=== PATIENT | female | born 1930 | race Caucasian/White ===

== ENCOUNTER → 2017-11-14 | Outpatient (CLI) | END | disposition home or self-care (01) ==

== ENCOUNTER 2017-11-17 14:50 | Inpatient (IN) | END 2017-11-24 19:30 | DRG 871 ==

== ENCOUNTER 2019-01-21 05:29 | Inpatient (IN) | payer MEDICARE, OTHER ==
[~2019-01-21] VITALS: Ht 152.4 cm; Wt 69.6 kg
[~2019-01-21 05:29] MED LIST: ALBU18HF INHALATION; ASPI-903 PO; BENZ-6 PO; CALC500T91 PO; CLON-379 PO; DONE10TA7 PO; ESOM40CA51 PO; FLUC200T52 PO; LEVO75TA5 PO; METO-335 PO; NIFE60TA18 PO; OSEL30CA PO; ROPI0.5T2 PO; RSV10T PO; SOLI5TAB2 PO
[2019-01-21] MEDS ORDERED: FENTAnyl 50 MCG/ML VIAL IV ONE (06:00)
[2019-01-21] MEDS ORDERED: SOD CHLORIDE 0.9% 1,000 ML IV SCH (06:13)
--- NOTE | 2019-01-21 06:13 | ERD ---
ER Documentation Chief Complaint Chief Complaint [facility] home for mechanical fall, right hip pain, shortening HPI This is an 88-year-old female with a past medical history of hypertension, h yperlipidemia, coronary artery disease status post CABG, atrial fibrillation, COPD, hypothyroidism, dementia who is presenting with right hip pain after a mechanical ground-level fall. The patient's right leg is externally rotated and shortened. Her leg is not cold or pale or blue. Her pulses are intact. She is able to move her ankle and toes without difficulty. She does not endorse any other trauma or injury. She does not endorse any other pain. The patient denies feeling sick recently. The patient denies fever or chills. The patient has had no headache or vision changes. The patient does not endorse neck or back pain. The patient denies lightheadedness or dizziness. The patient has had no chest pain or trouble breathing. The patient denies nausea or vomiting. The patient denies abdominal pain. The patient denies changes to bowel movements or urination. The patient has had no focal deficits. The patient has had no weakness or numbness or tingling to the face or extremities. ROS All systems reviewed and are negative except as per history of present illness. Medications Home Meds Active Scripts Clonidine Hcl* (Clonidine Hcl*) 0.1 Mg Tab, 0.1 MG PO DAILY, #30 TAB Prov:BRIDGET CHAN NP 11/24/17 Metoprolol Succinate* (Toprol XL*) 25 Mg Tab.sr.24h, 12.5 MG PO DAILY, #30 TAB Prov:BRIDGET CHAN NP 11/23/17 Fluconazole* (Fluconazole*) 200 Mg Tablet, 200 MG PO DAILY, #5 TAB Prov:BRIDGET CHAN NP 11/23/17 Oseltamivir Phosphate* (Tamiflu*) 30 Mg Capsule, 30 MG PO BID, #4 CAP Prov:BRIDGET CHAN NP 11/23/17 Nifedipine* (Nifedipine ER*) 60 Mg Tablet.sa, 60 MG PO DAILY, #30 TAB.SA Prov:BRIDGET CHAN NP 11/23/17 Donepezil* (Donepezil*) 10 Mg Tablet, 10 MG PO DAILY, #30 TAB Prov:BRIDGET CHAN NP 11/23/17 Reported Medications Esomeprazole Magnesium (Esomeprazole Magnesium) 40 Mg Capsule.dr 40 MG PO BEFORE BREAKFAST, #30 CAP 11/17/17 Rosuvastatin Calcium* (Crestor*) 10 Mg Tablet, 10 MG PO QHS, #30 TAB 11/17/17 Solifenacin* (Vesicare*) 5 Mg Tablet, 5 MG PO DAILY, TAB 11/17/17 Ropinirole Hcl* (Ropinirole Hcl*) 0.5 Mg Tablet, 0.5 MG PO HS, TAB 11/17/17 Albuterol Sulfate* (Ventolin HFA*) 18 Gm Hfa.aer.ad, 2 PUFF INHALATION Q4H PRN for WHEEZING AND SOB, #1 INHALER 11/17/17 Benzonatate* (Tessalon Perle*) 100 Mg Capsule, 100 MG PO Q8H PRN for COUGH, CAP 11/17/17 Donepezil* (Donepezil*) 10 Mg Tablet, 10 MG PO DAILY, #30 TAB 11/17/17 Calcium Carbonate ([id number]) 500 Mg Tablet, 500 MG PO BID, TAB 11/17/17 Aspirin* (Aspirin* Chew) 81 Mg Tab.chew, 81 MG PO DAILY, TAB.CHEW 11/17/17 Levothyroxine Sodium* (Levothyroxine Sodium*) 75 Mcg Tablet, 75 MG PO AC BREAKFAST, #30 11/17/17 Allergies Allergies: Coded Allergies: No Known Allergy (Unverified , 11/17/17) PMhx/Soc History of Surgery: Yes (BYPASS 2004, 2014, [id number], CATARACT ,APPY,HERNIA REPAIR 1981) Anesthesia Reaction: No Hx Neurological Disorder: No Hx Respiratory Disorders: Yes (COPD) Hx Cardiac Disorders: Yes (Hypertension, hyperlipidemia, coronary artery disease, atrial fibrillation) Hx Psychiatric Problems: No Hx Miscellaneous Medical Probl: Yes (Hypothyroidism) Hx Alcohol Use: No Hx Substance Use: No Hx Tobacco Use: No FmHx Family History: No diabetes Physical Exam Vitals Vital Signs Date Temp Pulse Resp B/P (MAP) Pulse Ox O2 O2 Flow FiO2 Time Delivery Rate 01/21/19 97.3 21 19 146/65 100 05:33 (92) Physical Exam Const: No acute distress Head: Atraumatic Eyes: Normal Conjunctiva ENT: Normal External Ears, Nose and Mouth. Neck: Full range of motion. No meningismus. Resp: Clear to auscultation bilaterally Cardio: Regular rate and rhythm, no murmurs. Sternotomy scar evident. Abd: Soft, non tender, non distended. Normal bowel sounds Skin: No petechiae or rashes Back: No midline or flank tenderness Ext: No cyanosis, or edema. Tenderness to the right hip. Right leg is externally rotated and shortened. Pulses intact. Neurovascularly intact. Neur: Awake and alert Psych: Normal Mood and Affect Results 24 hrs Current Medications Medications Dose Sig/Sherrie Start Time Status Last (Trade) Ordered Route PRN Stop Time Admin Dose Reason Admin Fentanyl 50 mcg ONCE ONCE 01/21/19 (Sublimaze) IV 06:00 01/21/19 06:01 Procedures/MDM MDM The patient's presentation warrants further investigation. Previous medical records, if available, were reviewed. EKG EKG read by me: Rate/Rhythm: Bradycardia, irregularly irregular rhythm indicating rate indicating atrial fibrillation Intervals: No P waves. Wide QRS indicating a left bundle branch block. Normal QTC [place]: Left axis deviation Impression: No evidence of acute ischemia. Atrial fibrillation with left bundle branch block. IMAGING Imaging and Radiology interpretation reviewed. CXR 1V Interpreted by me Soft Tissue: No acute abnormalities Bones: No acute abnormalities Mediastinum/Cardiac Silhouette: Sternotomy wires. Cardiomegaly. No widened mediastinum. Lungs: No acute abnormalities. Normal pulmonary vasculature. No pneumothorax. No pulmonary edema. Clear costal diaphragmatic angles. No pleural effusions. No opacity or consolidations concerning for pneumonia. X-ray right hip Interpreted by myself Proximal spiral fracture of the femur just distal to the greater trochanter. TREATMENT/DISPOSITION The patient presents after mechanical fall. She sustained a fracture to the right hip. She is otherwise neurovascularly intact. She will likely require operative intervention. She will require cardiac clearance prior to surgery. Preop testing was ordered. She was made n.p.o. The patient was treated with fentanyl for pain control. There is no history of head trauma. The patient has no focal deficits. I've low suspicion for intracranial pathology. I have low suspicion for cerebral ischemia or intracranial hemorrhage. The patient has no cervical spine tenderness. He can move his neck in all directions without any pain. As stated above, he does not have any focal deficits. He is not altered or intoxicated. He does not have any distracting injuries. The patient's cervical spine was clinically cleared using the Nexus C-spine rule. The patient does not have any saddle anesthesia. He has not been incontinent of urine or stool. He has not had any retention of urine or stool. I have low suspicion for spinal cord injury. There is no evidence of cardiothoracic injury. I do not suspect pneumonia or pneumothorax or pulmonary edema or pleural effusion. I do not suspect pericardial effusion. I have low suspicion for esophageal tear or rupture. I have low suspicion for thoracic aortic aneurysm or rupture or dissection. The patient's fall was mechanical in nature. I do not suspect syncope. I do not suspect acute coronary syndrome. The patient's symptoms are not consistent with pulmonary embolism. There is no evidence of abdominal injury. The patient does not have any abdominal pain. I have low suspicion for posttraumatic intra-abdominal pathology. The patient's vital signs are unremarkable. I low suspicion for hepatic or splenic or renal trauma. The patient does not have any GI or urinary bleeding. I decreased suspicion for intestinal injury. I have low suspicion for urethral injury. ADMISSION At this time, I feel that the patient requires admission for further evaluation and management. The patient will be admitted to [Panel] in accordance with the patient's insurance. The patient was accepted by Dr. Shoemaker at 5:58 AM on January 21, 2019. Dr. Lara, the on-call orthopedic surgeon, was consulted on the case. Disclaimer: Inadvertent spelling and grammatical errors are likely due to EHR/dictation software use and do not reflect on the overall quality of patient care. Note that the electronic time recorded on this note does not necessarily reflect the actual time of the patient encounter. Departure Diagnosis: Primary Impression: Closed right hip fracture Encounter type: initial encounter Qualified Codes: S72.001A - Fracture of unspecified part of neck of right femur, initial encounter for closed fracture Additional Impression: Fall from ground level Condition: Serious KELLIE MEYERS MD Jan 21, 2019 06:11
[2019-01-21] MEDS ORDERED: morphine 2 MG INJ IV PRN (06:30)
[2019-01-21] MEDS ORDERED: HYDROCODONE/APAP (5/325) TAB PO PRN (06:30)
[2019-01-21] MEDS ORDERED: ACETAMINOPHEN 325 MG TAB PO PRN ×2 (06:30)
[2019-01-21] MEDS ORDERED: NACL 0.9% 3 ML SYG IV SCH (06:30)
[2019-01-21] MEDS ORDERED: ONDANSETRON 4 MG INJ IV PRN ×2 (06:30)
[2019-01-21] MEDS ORDERED: DOCUSATE SODIUM 100 MG CAP PO PRN (06:30)
[2019-01-21] MEDS ORDERED: BISACODYL (EC) 5 MG TAB PO PRN (06:30)
[2019-01-21] MEDS ORDERED: ASPI81TA52 PO (06:57)
[2019-01-21] MEDS ORDERED: FURO-109 PO (06:58)
[2019-01-21] MEDS ORDERED: METO-319 PO (06:58)
[2019-01-21] MEDS ORDERED: CLON0.3T PO (06:58)
[2019-01-21] MEDS ORDERED: MEMA10TA PO (06:59)
[2019-01-21] MEDS ORDERED: SOLI5TAB2 PO (07:00)
[2019-01-21] MEDS ORDERED: ALBUTEROL 18 GM INHALER INH PRN (07:00)
[2019-01-21] MEDS ORDERED: SPIR25TA PO (07:00)
[2019-01-21] MEDS ORDERED: SACU1TAB PO (07:00)
--- NOTE | 2019-01-21 07:37 | HP ---
Date/Time of Note Date/Time of Note DATE: 01/21/19 TIME: 07:37 Assessment/Plan VTE Prophylaxis SCD applied (from Nsg): Yes Pharmacological prophylaxis: NA/contraindicated Pharm contraindication: low risk/ambulating Lines/Catheters IV Catheter Type (from Nrsg): Saline Lock Assessment/Plan Hospital Course This is a 88-year female being admitted to the telemetry floor for: #1 acute right hip fracture: Hip x-ray: Acute, comminuted and mildly displaced spiral type fracture of the proximal femur in the subtrochanteric region with extension into the lesser trochanter. Will immobilize the patient, Hernandez catheter. Keep the patient bedrest. N.p.o. except medications, gentle IV flu ids. Given her extensive cardiac history including CABG and carotid enterectomy and history of CHF will consult cardiology for cardiology clearance and will order an echocardiogram serial troponins., Dr. Stokes. Dr Lara of orthopedics has already been consulted by ED. #2 mechanical fall: Patient denies any loss of consciousness or head trauma. PT evaluation once able. #3 coronary artery disease: History of CABG. Previous echocardiogram in 2018 showed an ejection fraction of 40% with diastolic dysfunction. We will resume patient's home medications of Entresto, spironolactone, Crestor. Will hold aspirin and metoprolol at the current time given patient's bradycardia. Cardiology consult has been placed. #4 abnormal EKG: Possibly paroxysmal A. fib. EKG shows bradycardic with irreg ular rhythm, however on telemetry she appears to be sinus bradycardia at this point. Family denies a history of atrial fibrillation. We will continue to monitor further on telemetry. Will obtain an echocardiogram. Will consult cardiology. #5 hypertension: We will continue nifedipine, spinal lactone, will hold metoprolol #6. Hyperlipidemia: Continue statin #7 mixed systolic diastolic CHF: Patient does not appear to be volume overloaded at the current time. Will check an echocardiogram to assess current heart morphology. Continue nifedipine, hold spironolactone, Entresto, aspirin, beta- marivel given hyperkalemia as well as bradycardia. #8 CONCHA: Previous creatinine in 2018 was 0.9, this likely could be secondary to prerenal etiology, underlying Entresto usage. Will hold Entresto once clinically indicated. #9 hypokalemia: Potassium 5.5. Will follow potassium. Will hold spironolactone and Entresto at the current time. Treat hyperkalemia if it continues to rise. #10 dementia: Continue memantine #11 GERD: Continue omeprazole #12 DVT GI prophylaxis: SCDs, home PPI Further treatment strategy will be implemented as per the clinical course. Result Diagram: 01/21/19 0605 01/21/19 0605 Results 24hrs Laboratory Tests Test 01/21/19 06:05 White Blood Count 7.1 Red Blood Count 3.76 L Hemoglobin 10.8 L Hematocrit 33.4 L Mean Corpuscular Volume 88.8 Mean Corpuscular Hemoglobin 28.7 L Mean Corpuscular Hemoglobin Concent 32.3 Red Cell Distribution Width 12.6 Platelet Count 215 Mean Platelet Volume 11.5 H Immature Granulocytes % 0.400 Neutrophils % 52.4 Lymphocytes % 32.9 Monocytes % 9.9 Eosinophils % 4.0 Basophils % 0.4 Nucleated Red Blood Cells % 0.0 Immature Granulocytes # 0.030 Neutrophils # 3.7 Lymphocytes # 2.3 Monocytes # 0.7 Eosinophils # 0.3 Basophils # 0.0 Nucleated Red Blood Cells # 0.0 Prothrombin Time 13.7 Prothrombin Time Ratio 1.1 INR International Normalized Ratio 1.04 Sodium Level 141 Potassium Level 5.5 H Chloride Level 109 Carbon Dioxide Level 20 L Anion Gap 12 Blood Urea Nitrogen 50 H Creatinine 1.31 H Est Glomerular Filtrat Rate mL/min Glucose Level 110 Calcium Level 9.4 Troponin I < 0.012 HPI/ROS Admit Date/Time Admit Date/Time Hx of Present Illness Chief complaint: Fall, right hip pain This is an 88-year-old female with a past medical history of hypertension, hyperlipidemia, coronary artery disease status post CABG, atrial fibrillation, COPD, hypothyroidism, dementia who presented to the emergency department complaining of right hip pain after mechanical fall at home. Patient was brought in via ambulance. Her daughter is her at the bedside. The patient articulates that she was in the bathroom and trying to get up when she fell over. She denies any head trauma or loss of consciousness. The daughter went with her to help assist her but she was unable to stand up. Ambulance was called. Patient's right lower extremity was noted to be externally rotated and shortened. Her pulses are intact bilaterally, her skin is warm to touch. She is able to who is presenting with right hip pain after a mechanical ground- level fall. The patient's right leg is externally rotated and shortened. She does report pain in the right hip. Her daughters do state that she ambulates with a walker. She at times does feel short of breath when she walks. She has a combination machine tender as an outpatient Dr. Worley. Allergies: NKDA Medications: Omeprazole 40 mg p.o. daily Levothyroxine 75 mcg p.o. daily Donepezil 10 mg p.o. daily Nifedipine 60 mg 1 tab daily Entresto 24 mg 1 tab twice daily Memantine 10 mg 1 tablet twice daily Vesicare 5 mg 1 tab p.o. daily Spironolactone 25 mg 1 tab p.o. twice daily Lasix 40 mg once daily Crestor 10 mg p.o. daily Metoprolol 50 mg once daily Aspirin 81 mg p.o. daily Clonidine 0.3 as needed ROS Const: As per HPI Eyes : No pain discharge or redness or change in visual acuity ENT: No pain, sore throat, congestion, congestion, dysphagia or discharge Respiratory: No shortness of breath, cough, sputum, wheezing, or pleuritic pain Cardiovascular: No chest pain, palpitation, PND, or edema GI : no change in appetite, abdominal pain, nausea, vomiting, diarrhea, constip ation, or change in the color his stool Genitourinary: No dysuria, hematuria, flank pain , discharge or CVA tenderness Musculoskeletal: As per HPI Skin: No rash, bruising or hives Neuro: No headache, dizziness, syncope, seizure, focal weakness Endocrine: No polyuria, polydipsia, temperature intolerance Psych: No hallucination, depression, anxiety or suicidal ideation PMH/Family/Social Past Medical History hypertension, hyperlipidemia, coronary artery disease status post CABG, hypothyroidism, dementia, GERD Medications Current Medications Ondansetron HCl (Zofran Inj) 4 mg BRIDGE ORDER PRN IV NAUSEA/VOMITING; Start 01/21/19 at 06:30; Stop 01/22/19 at 06:29 Acetaminophen (Tylenol Tab) 650 mg ER BRIDGE PRN PO .MILD PAIN 1-3 OR TEMP; Start 01/21/19 at 06:30; Stop 01/22/19 at 06:29 Sodium Chloride 1,000 ml @ 75 mls/hr [id number] IV Last administered on 01/21/19at 07:10; Admin Dose 75 MLS/HR; Start 01/21/19 at 06:13 IV Flush (NS 3 ml) 3 ml PER PROTOCOL IV ; Start 01/21/19 at 06:30 Ondansetron HCl (Zofran Inj) 4 mg Q6H PRN IV NAUSEA/VOMITING; Start 01/21/19 at 06:30 Acetaminophen (Tylenol Tab) 650 mg Q6H PRN PO .PAIN 1-3 OR TEMP; Start 01/21/19 at 06:30 Acetaminophen/ Hydrocodone Bitart ([place] (5/325)) 1 tab Q6H PRN PO .MOD PAIN 4- 6 Last administered on 01/21/19at 07:21; Admin Dose 1 TAB; Start 01/21/19 at 06:30 Morphine Sulfate (morphine) 2 mg Q4H PRN IV .SEVERE PAIN 7-10 Last administered on 01/21/19at 07:21; Admin Dose 2 MG; Start 01/21/19 at 06:30 Docusate Sodium (Colace) 100 mg Q12H PRN PO .CONSTIPATION; Start 01/21/19 at 06:30 Bisacodyl (Dulcolax) 5 mg DAILY PRN PO .CONSTIPATION; Start 01/21/19 at 06:30 Albuterol (Ventolin Hfa) 2 puff Q4H PRN INH WHEEZING AND SOB; Start 01/21/19 at 07:00; Status UNV Donepezil HCl (Aricept) 10 mg DAILY PO ; Start 01/21/19 at 09:00; Status UNV Levothyroxine Sodium (Synthroid) 75 mcg AC BREAKFAST PO ; Start 01/21/19 at 07:00; Status UNV Nifedipine (Procardia Xl) 60 mg DAILY PO ; Start 01/21/19 at 09:00; Status UNV Miscellaneous Information 40 mg BEFORE BREAKFAST PO ; Start 01/21/19 at 07:00; Status UNV Miscellaneous Information 10 mg QHS PO ; Start 01/21/19 at 21:00; Status UNV Coded Allergies: No Known Allergy (Unverified , 11/17/17) Past Surgical History CABG, carotid enterectomy, appendectomy, hysterectomy, hernia repair Family History Significant Family History: no pertinent family hx Social History Alcohol Use: none Smoking Status: Never smoker Drug Use: none Exam/Review of Systems Vital Signs Vitals Vital Signs Date Temp Pulse Resp B/P (MAP) Pulse Ox O2 O2 Flow FiO2 Time Delivery Rate 01/21/19 58 18 146/65 93 Room Air 06:12 (92) 01/21/19 97.3 05:33 Exam Exam General: Patient is currently lying in bed, in mild distress from right hip pain HEENT: Atraumatic, normocephalic. The pupils are equal, round and reactive. E xtraocular motor are intact Neck: Supple with full range of motion. No rigidity or meningismus Chest: Nontender Lungs: Clear to auscultation bilaterally no crackles rales or wheezing Heart: Sinus bradycardia Abdomen: Soft , nontender, nondistended , bowel sounds are present. No guarding no rebound tenderness , No masses or organomegaly. No costovertebral temporal angle mass Extremities: Right hip: Externally rotated, shortened tender to palpation Neurologic: Normal mental status, speech normal, cranial nerves II through XII are intact, motor and sensory are intact, gait not assessed secondary to fracture. Additional Comments EKG Rate/Rhythm: Bradycardia, irregularly irregular rhythm indicating rate indicating atrial fibrillation Intervals: No P waves. Wide QRS indicating a left bundle branch block. Normal QTC [place]: Left axis deviation PROCEDURE: Pelvis x-ray CLINICAL INDICATION: hip fracture TECHNIQUE: Single AP view of the pelvis performed. COMPARISON: None FINDINGS: Acute, comminuted mildly displaced spiral type fracture of the subtrochanteric proximal femur which appears to extend into the lesser trochanter. No definite fracture involvement of the greater trochanter. Moderate arthrosis of the hip joint without dislocation. Osteopenia. Remainder of the pelvic ring appears intact. No fracture or dislocation of the left hip. 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 IMPRESSION: Acute, comminuted and mildly displaced spiral type fracture of the proximal femur in the subtrochanteric region with extension into the lesser trochanter. RPTAT:AAJJ Physician Margie Date Time Electronically viewed and signed by Physician Margie on 01/21/2019 07:12 RF/ CC: KELLIE MEYERS MD [id number] PROCEDURE: Right femur x-ray CLINICAL INDICATION: right hip fracture TECHNIQUE: AP and lateral views of the femur were obtained. COMPARISON: None FINDINGS: Acute, comminuted mildly displaced spiral type fracture of the subtrochanteric proximal femur which appears to extend into the lesser trochanter. No definite fracture involvement of the greater trochanter. Moderate arthrosis of the hip joint without dislocation. Osteopenia. No additional fractures of the distal femur and no dislocation at the knee. Moderate to advanced degenerate joint disease at the knee. IMPRESSION: Acute, comminuted and mildly displaced spiral type fracture of the proximal femur in the subtrochanteric region with extension into the lesser trochanter. RPTAT:AAJJ Manohar Sigala Physician Date Time Electronically viewed and signed by Physician Margie on 01/21/2019 07:13 RF/ CC: KELLIE MEYERS MD [id number] PROCEDURE: XR Hip. CLINICAL INDICATION: hip pain with shortening TECHNIQUE: AP and frog lateral views of the right hip were performed. COMPARISON: None. FINDINGS: Acute, comminuted mildly displaced spiral type fracture of the subtrochanteric proximal femur which appears to extend into the lesser trochanter. There is approximate 2 cm in medial displacement of the lesser trochanter. No definite fracture involvement of the greater trochanter. Moderate arthrosis of the hip joint without dislocation. Osteopenia. IMPRESSION: Acute, comminuted and mildly displaced spiral type fracture of the proximal femur in the subtrochanteric region with extension into the lesser trochanter. RPTAT:AAJJ Manohar Sigala Physician Date Time Electronically viewed and signed by Physician Margie on 01/21/2019 07:11 RF/ CC: KELLIE MEYERS MD [id number] PROCEDURE: XR Chest. CLINICAL INDICATION: Pain TECHNIQUE: Portable AP view of the chest was obtained. COMPARISON: None. FINDINGS: Moderate cardiomegaly with minimal central venous congestion. No focal appearing consolidation, effusion, or pneumothorax. Postsurgical changes over the cardiac silhouette with median sternotomy wires. Diffuse osteopenia, however no acute appearing fractures detected. Possible old healed rib fracture on the left at the level of the 7th rib. Calcified atherosclerosis of the thoracic aorta. IMPRESSION: Cardiomegaly with mild central venous congestion. RPTAT:AAJJ Physician Margie Date Time Electronically viewed and signed by Manohar Sigala Physician on 01/21/2019 07:14 RF/ CC: KELLIE MEYERS MD [id number] REYES MCNEILL Jan 21, 2019 07:37
[2019-01-21] MEDS: LEVOTHYROXINE 75 MCG TAB PO SCH (08:25)
[2019-01-21 08:46] VITALS: BP 154/71; PULSE 56; RESP 19
[2019-01-21 08:54] VITALS: PULSE 51
[2019-01-21] MEDS: PANTOPRAZOLE (EC) 40 MG TAB PO SCH (09:00)
[2019-01-21] MEDS: NIFEdipine (XL) 60 MG TAB PO SCH (09:00)
[2019-01-21 09:14] VITALS: Ht 152.4 cm; Wt 69.6 kg
--- NOTE | 2019-01-21 10:27 | RADRPT ---
Echocardiogram Report Patient Name: FELIX CASTROPatient ID: [id number] : 1930 (88y 2m)Study Date: 01/21/2019 7:47:37 AM Gender: FAccession #: [id number] Tech: Ana Gillespie TAMMIE Location: [facility] Ref.Physician: REYES MCNEILL Height(Cm): BSA: Weight(Kg): Quality: AdequateOrder Physician: REYES MCNEILL Account #: Procedures: Echocardiographic Report: Transthoracic echocardiogram with complete 2D, M-Mode, and doppler examination. Indications: Pre-op. Measurements: 2D/M Mode Doppler Measurement Value Normal Range Measurement Value Normal Range LVIDd 2D 5.2 [ 3.8 - 5.2 ] cm AV Peak Bear 1.8 [ 100.0 - 170.0 ] cm/sec LVIDs 2D 4.1 [ 2.2 - 3.5 ] cm AV Peak PG 13.0 [ 2.0 - 9.0 ] mmHg LVPWd 2D 0.9 [ 0.6 - 0.9 ] cm LVOT Peak Bear 0.6 [ 70.0 - 110.0 ] cm/sec IVSd 2D 0.9 [ 0.6 - 0.9 ] cm LVOT Peak PG 2.0 [ 2.0 - 6.0 ] mmHg AoR Diam 2D 2.8 [ 2.3 - 3.1 ] cm MV E Peak Bear 0.8 [ 60.0 - 130.0 ] cm/sec EDV 2D 128.0 [ 46.0 - 106.0 ] ml MV A Peak Bear 0.9 [ 100.0 - 120.0 ] cm/sec ESV 2D 74.7 [ 14.0 - 42.0 ] ml MV E/A 0.9 [ 0.8 - 1.5 ] ratio EF 2D 41.6 [ 54.0 - 74.0 ] percent MV Decel Time 173 [ 104 - 258 ] msec LA Dimen 2D 3.6 [ 2.7 - 3.8 ] cm Lat E` Bear 0.1 [ 10.0 - 15.0 ] cm/sec Lateral E/E` 7.8 [ 1.0 - 2.0 ] ratio MV E/A 0.9 [ 0.8 - 1.5 ] ratio TR Peak Bear 3.1 [ 100.0 - 280.0 ] cm/sec TR Peak PG 38.0 mmHg RVSP 41.0 [ 10.0 - 36.0 ] mmHg RA Pressure 3.0 mmHg Findings: Left Ventricle: Normal left ventricular cavity size. Normal left ventricular wall thickness. Mild left ventricular systolic dysfunction. Ejection fraction is visually estimated at 40 %. Tissue Doppler/Mitral Doppler indices are consistent with impaired relaxation (Stage I diastolic dysfunction). Akinesis of the septum with abnormal motion due to prior cardiac surgery. Hypokinesis of the inferior wall. Right Ventricle: Normal right ventricular size. Normal right ventricular systolic function. Left Atrium: There is moderate enlargement of left atrium. Right Atrium: There is mild enlargement of right atrium. Mitral Valve: Mitral valve leaflets appear mildly thickened. Mild mitral annular calcification. There is trace to mild mitral valve regurgitation. Aortic Valve: Aortic sclerosis without significant stenosis. No aortic regurgitation. Tricuspid Valve: Normal appearance of the tricuspid valve. The estimated Peak RVSP is 41 mmHg. There is mild tricuspid regurgitation. Pulmonic Valve: Normal pulmonic valve appearance. Pericardium: Normal pericardium with no significant pericardial effusion. Aorta: Normal aortic root. IVC: Normal size and normal respiratory collapse consistent with normal right atrial pressure. Conclusions: Normal left ventricular cavity size. Normal left ventricular wall thickness. Mild left ventricular systolic dysfunction. Ejection fraction is visually estimated at 40 %. Tissue Doppler/Mitral Doppler indices are consistent with impaired relaxation (Stage I diastolic dysfunction). Akinesis of the septum with abnormal motion due to prior cardiac surgery. Hypokinesis of the inferior wall. Aortic sclerosis without significant stenosis. The estimated Peak RVSP is 41 mmHg. Normal size and normal respiratory collapse consistent with normal right atrial pressure. Electronically Signed By: Vladimir Stokes 2019-01-21 10:26:51 PDT
[2019-01-21] MEDS: HYDROmorphONE 1 MG/ML SYG IV PRN ×2 (11:01→18:16)
--- NOTE | 2019-01-21 11:21 | CONS ---
Assessment/Plan Assessment/Plan Hospital Course (Demo Recall) Pre-operative evaluation: The patient is to undergo intermediate risk surgery. She has extensive cardiac history including prior CABG and EF 40% as well as paroxysmal afib. However no active/decompensated cardiac condition including ACS/CHF/unstable arrhythmia. She is intermediate-high risk for surgery but no testing would mitigate this risk and as such she can proceed without additional testing. Would be judicious with intra-op fluid management and anesthesia to avoid hypotensive episodes. Mechanical fall s/p right femur fracture Hyperkalemia: on aldactone at home, likely the culprit CAD s/p 3V CABG 2004 ischemic cardiomyopathy:EF 40%. Compensated on exam Paroxysmal afib: not on anticoagulation presumably for fall risk. Afib with slow response on admission. Now back in sinus LBBB HTN CKD advanced dementia -ok for surgery as above -continue ASA per-op -lipitor -hold metoprolol with bradycardic episodes (on low dose anyway) -hold entresto and aldactone with hyperkalemia -d/c IVF to avoid fluid overload prior to surgery Consultation Date/Type/Reason Admit Date/Time Date of Consultation: Jan 21, 2019 Type of Consult Cardiology Reason for Consultation Pre-operative evaluation Requesting Provider: REYES MCNEILL Date/Time of Note DATE: 01/21/19 TIME: 11:18 Hx of Present Illness 88 yo F with a h/o CAD s/p 3V CABG 2004, ischemic cardiomyopathy EF 40%, paroxysmal afib not on anticoagulation, HTN, CKD, advanced dementia. who presented s/p mechanical fall and was found to have a right femur spiral fracture. She is a pleasant lady who is able to tell me that besides leg pain she does not have any chest pain or SOB. However the remainder of the history is limited and is obtained from her daughters at bedside. Apparently the pt got up in the middle of the night to use the restroom. She uses a walker and her daughters note that the bathroom is small. It sounds like she could not maneuver herself and fell. The pt denies dizziness or syncope. No recent chest pain or exertional dyspnea. No orthopnea, PND, edema. Her live truck technician is Dr. Delano Worley who sees her regularly. Pt was in afib on admission but has been in sinus with HR 50s and at times mid 40s while asleep per HPI, limited Past Medical History per hPI Home Meds Active Scripts Nifedipine* (Nifedipine ER*) 60 Mg Tablet.sa, 60 MG PO DAILY, #30 TAB.SA Prov:BRIDGET CHAN FORECLOSURE FIELD INSPECTOR 11/23/17 Reported Medications Solifenacin* (Vesicare*) 5 Mg Tablet, 5 MG PO DAILY, TAB 01/21/19 Spironolactone* (Aldactone*) 25 Mg Tablet, 25 MG PO BID, #60 TAB 01/21/19 Sacubitril/Valsartan (Entresto 24 mg-26 mg Tablet) 1 Each Tablet, 1 EACH PO BID, TAB 01/21/19 Memantine* (Namenda*) 10 Mg Tablet, 10 MG PO BID, #60 TAB 01/21/19 Metoprolol Succinate* (Toprol XL*) 50 Mg Tab.er.24h, 50 MG PO DAILY, #30 TAB 01/21/19 Furosemide* (Lasix*) 40 Mg Tablet, 40 MG PO BID, TAB 01/21/19 Clonidine Hcl* (Clonidine Hcl*) 0.3 Mg Tablet, 0.3 MG PO DAILY PRN for ELEVATED BLOOD PRESSURE, TAB 01/21/19 Aspirin (Low Dose Aspirin) 81 Mg Tablet.dr, 81 MG PO DAILY, #30 TAB 01/21/19 Esomeprazole Magnesium (Esomeprazole Magnesium) 40 Mg Capsule.dr, 40 MG PO BEFORE BREAKFAST, #30 CAP 11/17/17 Rosuvastatin Calcium* (Crestor*) 10 Mg Tablet, 10 MG PO QHS, #30 TAB 11/17/17 Albuterol Sulfate* (Ventolin HFA*) 18 Gm Hfa.aer.ad, 2 PUFF INHALATION Q4H PRN for WHEEZING AND SOB, #1 INHALER 11/17/17 Donepezil* (Donepezil*) 10 Mg Tablet, 10 MG PO DAILY, #30 TAB 11/17/17 Levothyroxine Sodium* (Levothyroxine Sodium*) 75 Mcg Tablet, 75 MG PO AC BREAKFAST, #30 11/17/17 Discontinued Reported Medications Solifenacin* (Vesicare*) 5 Mg Tablet, 5 MG PO DAILY, TAB 11/17/17 Ropinirole Hcl* (Ropinirole Hcl*) 0.5 Mg Tablet, 0.5 MG PO HS, TAB 11/17/17 Benzonatate* (Tessalon Perle*) 100 Mg Capsule, 100 MG PO Q8H PRN for COUGH, CAP 11/17/17 Calcium Carbonate (Otko-Led-331) 500 Mg Tablet, 500 MG PO BID, TAB 11/17/17 Aspirin* (Aspirin* Chew) 81 Mg Tab.chew, 81 MG PO DAILY, TAB.CHEW 11/17/17 Discontinued Scripts Clonidine Hcl* (Clonidine Hcl*) 0.1 Mg Tab, 0.1 MG PO DAILY, #30 TAB Prov:BRIDGET CHAN FORECLOSURE FIELD INSPECTOR 11/24/17 Metoprolol Succinate* (Toprol XL*) 25 Mg Tab.sr.24h, 12.5 MG PO DAILY, #30 TAB Prov:BRIDGET CHAN FORECLOSURE FIELD INSPECTOR 11/23/17 Fluconazole* (Fluconazole*) 200 Mg Tablet, 200 MG PO DAILY, #5 TAB Prov:BRIDGET CHAN FORECLOSURE FIELD INSPECTOR 11/23/17 Oseltamivir Phosphate* (Tamiflu*) 30 Mg Capsule, 30 MG PO BID, #4 CAP Prov:BRIDGET CHAN FORECLOSURE FIELD INSPECTOR 11/23/17 Donepezil* (Donepezil*) 10 Mg Tablet, 10 MG PO DAILY, #30 TAB Prov:BRIDGET CHAN FORECLOSURE FIELD INSPECTOR 11/23/17 Medications Current Medications Ondansetron HCl (Zofran Inj) 4 mg BRIDGE ORDER PRN IV NAUSEA/VOMITING; Start 01/21/19 at 06:30; Stop 01/22/19 at 06:29 Acetaminophen (Tylenol Tab) 650 mg ER BRIDGE PRN PO .MILD PAIN 1-3 OR TEMP; Start 01/21/19 at 06:30; Stop 01/22/19 at 06:29 Sodium Chloride 1,000 ml @ 60 mls/hr [id number] IV Last administered on 01/21/19at 07:10; Admin Dose 75 MLS/HR; Start 01/21/19 at 06:13 IV Flush (NS 3 ml) 3 ml PER PROTOCOL IV ; Start 01/21/19 at 06:30 Ondansetron HCl (Zofran Inj) 4 mg Q6H PRN IV NAUSEA/VOMITING; Start 01/21/19 at 06:30 Acetaminophen (Tylenol Tab) 650 mg Q6H PRN PO .PAIN 1-3 OR TEMP; Start 01/21/19 at 06:30 Acetaminophen/ Hydrocodone Bitart ([place] (5/325)) 1 tab Q6H PRN PO .MOD PAIN 4- 6 Last administered on 01/21/19at 07:21; Admin Dose 1 TAB; Start 01/21/19 at 06:30 Docusate Sodium (Colace) 100 mg Q12H PRN PO .CONSTIPATION; Start 01/21/19 at 06:30 Bisacodyl (Dulcolax) 5 mg DAILY PRN PO .CONSTIPATION; Start 01/21/19 at 06:30 Albuterol (Ventolin Hfa) 2 puff Q4H PRN INH WHEEZING AND SOB; Start 01/21/19 at 07:00 Donepezil HCl (Aricept) 10 mg DAILY PO ; Start 01/21/19 at 09:00 Levothyroxine Sodium (Synthroid) 75 mcg AC BREAKFAST PO Last administered on 01/21/19at 08:25; Admin Dose 75 MCG; Start 01/21/19 at 08:00 Nifedipine (Procardia Xl) 60 mg DAILY PO ; Start 01/21/19 at 09:00 Pantoprazole (Protonix Tab) 40 mg DAILY@06 PO ; Start 01/21/19 at 09:00 Atorvastatin Calcium (Lipitor) 40 mg DAILY@21 PO ; Start 01/21/19 at 21:00 Hydromorphone HCl (Dilaudid) 1 mg Q3H PRN IV SEVERE PAIN LEVEL 7-10 Last administered on 01/21/19at 11:01; Admin Dose 1 MG; Start 01/21/19 at 11:00 Allergies: Coded Allergies: No Known Allergy (Unverified , 11/17/17) Social History Alcohol Use: none Smoking Status: Never smoker Drug Use: none Exam/Review of Systems Vital Signs Vitals Vital Signs Date Temp Pulse Resp B/P (MAP) Pulse Ox O2 O2 Flow FiO2 Time Delivery Rate 01/21/19 51 08:54 01/21/19 97.9 19 154/71 99 08:46 (98) 01/21/19 Room Air 07:51 Exam Constitutional: alert, oriented Neck: supple; No jvd Respiratory: clear to auscultation; No crackles/rales Cardiovascular: systolic murmur (2/6 RAY); No regular rate and rhythm (bradycardic, 50s), No edema Gastrointestinal: soft, non-tender; No distended Musculoskeletal: No nl extremities to inspection Neurological: nl mental status, nl speech Labs Result Diagram: 01/21/1960401/21/19604 Results 24hrs Laboratory Tests Test 01/21/19 06:05 White Blood Count 7.1 Red Blood Count 3.76 L Hemoglobin 10.8 L Hematocrit 33.4 L Mean Corpuscular Volume 88.8 Mean Corpuscular Hemoglobin 28.7 L Mean Corpuscular Hemoglobin Concent 32.3 Red Cell Distribution Width 12.6 Platelet Count 215 Mean Platelet Volume 11.5 H Immature Granulocytes % 0.400 Neutrophils % 52.4 Lymphocytes % 32.9 Monocytes % 9.9 Eosinophils % 4.0 Basophils % 0.4 Nucleated Red Blood Cells % 0.0 Immature Granulocytes # 0.030 Neutrophils # 3.7 Lymphocytes # 2.3 Monocytes # 0.7 Eosinophils # 0.3 Basophils # 0.0 Nucleated Red Blood Cells # 0.0 Prothrombin Time 13.7 Prothrombin Time Ratio 1.1 INR International Normalized Ratio 1.04 Activated Partial Thromboplast Time 29.0 Sodium Level 141 Potassium Level 5.5 H Chloride Level 109 Carbon Dioxide Level 20 L Anion Gap 12 Blood Urea Nitrogen 50 H Creatinine 1.31 H Est Glomerular Filtrat Rate mL/min Glucose Level 110 Calcium Level 9.4 Troponin I < 0.012 Thyroid Stimulating Hormone (TSH) 0.821 Medications Medications Current Medications Ondansetron HCl (Zofran Inj) 4 mg BRIDGE ORDER PRN IV NAUSEA/VOMITING; Start 01/21/19 at 06:30; Stop 01/22/19 at 06:29 Acetaminophen (Tylenol Tab) 650 mg ER BRIDGE PRN PO .MILD PAIN 1-3 OR TEMP; Start 01/21/19 at 06:30; Stop 01/22/19 at 06:29 Sodium Chloride 1,000 ml @ 60 mls/hr [id number] IV Last administered on 01/21/19at 07:10; Admin Dose 75 MLS/HR; Start 01/21/19 at 06:13 IV Flush (NS 3 ml) 3 ml PER PROTOCOL IV ; Start 01/21/19 at 06:30 Ondansetron HCl (Zofran Inj) 4 mg Q6H PRN IV NAUSEA/VOMITING; Start 01/21/19 at 06:30 Acetaminophen (Tylenol Tab) 650 mg Q6H PRN PO .PAIN 1-3 OR TEMP; Start 01/21/19 at 06:30 Acetaminophen/ Hydrocodone Bitart ([place] (5/325)) 1 tab Q6H PRN PO .MOD PAIN 4- 6 Last administered on 01/21/19at 07:21; Admin Dose 1 TAB; Start 01/21/19 at 06:30 Docusate Sodium (Colace) 100 mg Q12H PRN PO .CONSTIPATION; Start 01/21/19 at 06:30 Bisacodyl (Dulcolax) 5 mg DAILY PRN PO .CONSTIPATION; Start 01/21/19 at 06:30 Albuterol (Ventolin Hfa) 2 puff Q4H PRN INH WHEEZING AND SOB; Start 01/21/19 at 07:00 Donepezil HCl (Aricept) 10 mg DAILY PO ; Start 01/21/19 at 09:00 Levothyroxine Sodium (Synthroid) 75 mcg AC BREAKFAST PO Last administered on 01/21/19at 08:25; Admin Dose 75 MCG; Start 01/21/19 at 08:00 Nifedipine (Procardia Xl) 60 mg DAILY PO ; Start 01/21/19 at 09:00 Pantoprazole (Protonix Tab) 40 mg DAILY@06 PO ; Start 01/21/19 at 09:00 Atorvastatin Calcium (Lipitor) 40 mg DAILY@21 PO ; Start 01/21/19 at 21:00 Hydromorphone HCl (Dilaudid) 1 mg Q3H PRN IV SEVERE PAIN LEVEL 7-10 Last administered on 01/21/19at 11:01; Admin Dose 1 MG; Start 01/21/19 at 11:00 BARB SHIRLEY Jan 21, 2019 11:21
[2019-01-21 11:24] VITALS: BP 124/58; PULSE 88; RESP 19
[2019-01-21] MEDS: DONEPEZIL 10 MG TAB PO SCH (12:03)
[2019-01-21] MEDS: ASPIRIN 81 MG TAB PO SCH (12:03)
[2019-01-21 15:41] VITALS: BP 151/69; PULSE 55; RESP 18
--- NOTE | 2019-01-21 15:52 | PN ---
Date/Time of Note Date/Time of Note DATE: 01/21/19 TIME: 15:48 Assessment/Plan VTE Prophylaxis SCD applied (from Nsg): Yes Pharmacological prophylaxis: NA/contraindicated Pharm contraindication: surgical contra Lines/Catheters IV Catheter Type (from Nrsg): Saline Lock Urinary Cath still in place: Yes Reason Cath still needed: other (indicate) (immobile) Assessment/Plan Assessment/Plan 88 yo woman with history of CAD and CABG, CHF presents with R hip fracture # acute right hip fracture: - Hip x-ray: Acute, comminuted and mildly displaced spiral type fracture of the proximal femur in the subtrochanteric region with extension into the lesser trochanter. - Will immobilize the patient, Hernandez catheter. - Keep the patient bedrest. N.p.o. except medications, gentle IV fluids. - Per Dr Stokes, no further cardiac workup prior to surgery. - Dr. Lara consulted. On OR board for tomorrow morning. # mechanical fall: Patient denies any loss of consciousness or head trauma. PT evaluation postop # coronary artery disease: History of CABG. Previous echocardiogram in 2018 showed an ejection fraction of 40% with diastolic dysfunction. We will resume patient's home medications of Entresto, spironolactone, Crestor. Will hold aspirin and metoprolol at the current time given patient's bradycardia. Dr. Stokes following. # hypertension: We will continue nifedipine, spinal lactone, will hold metoprolol # Hyperlipidemia: Continue statin # mixed systolic diastolic CHF: Patient does not appear to be volume overloaded at the current time. Will check an echocardiogram to assess current heart morphology. Continue Entresto, nifedipine, aspirin lactone, will hold beta- marivel given bradycardia. Hold aspirin # dementia: Continue memantine # GERD: Continue omeprazole # DVT GI prophylaxis: SCDs, home PPI Result Diagram: 01/21/19 0605 01/21/19 1052 Subjective 24 Hr Interval Summary Free Text/Dictation No acute overnight events. Spoke to patient's daughters at bedside to update them on her status. Exam/Review of Systems Exam Vitals Vital Signs Date Temp Pulse Resp B/P (MAP) Pulse Ox O2 O2 Flow FiO2 Time Delivery Rate 01/21/19 98.3 55 18 151/69 97 15:41 (96) 01/21/19 Room Air 07:51 Exam General: Patient is currently lying in bed, comfortable appearing HEENT: Atraumatic, normocephalic. The pupils are equal, round and reactive. Extraocular motor are intact Neck: Supple with full range of motion. No rigidity or meningismus Chest: Nontender Lungs: Clear to auscultation bilaterally no crackles rales or wheezing Heart: Sinus bradycardia Abdomen: Soft , nontender, nondistended , bowel sounds are present. No guarding no rebound tenderness , No masses or organomegaly. No costovertebral temporal angle mass Extremities: Right hip: Externally rotated, shortened tender to palpation Results Results 24hrs Laboratory Tests Test 01/21/19 06:05 01/21/19 10:51 01/21/19 10:52 White Blood Count 7.1 Red Blood Count 3.76 L Hemoglobin 10.8 L Hematocrit 33.4 L Mean Corpuscular Volume 88.8 Mean Corpuscular Hemoglobin 28.7 L Mean Corpuscular Hemoglobin Concent 32.3 Red Cell Distribution Width 12.6 Platelet Count 215 Mean Platelet Volume 11.5 H Immature Granulocytes % 0.400 Neutrophils % 52.4 Lymphocytes % 32.9 Monocytes % 9.9 Eosinophils % 4.0 Basophils % 0.4 Nucleated Red Blood Cells % 0.0 Immature Granulocytes # 0.030 Neutrophils # 3.7 Lymphocytes # 2.3 Monocytes # 0.7 Eosinophils # 0.3 Basophils # 0.0 Nucleated Red Blood Cells # 0.0 Prothrombin Time 13.7 Prothrombin Time Ratio 1.1 INR International Normalized Ratio 1.04 Activated Partial Thromboplast Time 29.0 Sodium Level 141 139 Potassium Level 5.5 H 5.9 H Chloride Level 109 109 Carbon Dioxide Level 20 L 22 Anion Gap 12 8 Blood Urea Nitrogen 50 H 46 H Creatinine 1.31 H 1.13 H Est Glomerular Filtrat Rate mL/min Glucose Level 110 125 Calcium Level 9.4 8.9 Troponin I < 0.012 < 0.012 Thyroid Stimulating Hormone (TSH) 0.821 Creatine Kinase 54 Creatine Kinase Index 1.7 Creatinine Kinase MB (Mass) 0.91 Medications Medication Current Medications IV Flush (NS 3 ml) 3 ml PER PROTOCOL IV ; Start 01/21/19 at 06:30 Ondansetron HCl (Zofran Inj) 4 mg Q6H PRN IV NAUSEA/VOMITING; Start 01/21/19 at 06:30 Acetaminophen (Tylenol Tab) 650 mg Q6H PRN PO .PAIN 1-3 OR TEMP; Start 01/21/19 at 06:30 Acetaminophen/ Hydrocodone Bitart ([place] (5/325)) 1 tab Q6H PRN PO .MOD PAIN 4- 6 Last administered on 01/21/19at 07:21; Admin Dose 1 TAB; Start 01/21/19 at 06:30 Docusate Sodium (Colace) 100 mg Q12H PRN PO .CONSTIPATION; Start 01/21/19 at 06:30 Bisacodyl (Dulcolax) 5 mg DAILY PRN PO .CONSTIPATION; Start 01/21/19 at 06:30 Albuterol (Ventolin Hfa) 2 puff Q4H PRN INH WHEEZING AND SOB; Start 01/21/19 at 07:00 Donepezil HCl (Aricept) 10 mg DAILY PO Last administered on 01/21/19at 12:03; Admin Dose 10 MG; Start 01/21/19 at 09:00 Levothyroxine Sodium (Synthroid) 75 mcg AC BREAKFAST PO Last administered on 01/21/19at 08:25; Admin Dose 75 MCG; Start 01/21/19 at 08:00 Nifedipine (Procardia Xl) 60 mg DAILY PO ; Start 01/21/19 at 09:00 Pantoprazole (Protonix Tab) 40 mg DAILY@06 PO ; Start 01/21/19 at 09:00 Atorvastatin Calcium (Lipitor) 40 mg DAILY@21 PO ; Start 01/21/19 at 21:00 Hydromorphone HCl (Dilaudid) 1 mg Q3H PRN IV SEVERE PAIN LEVEL 7-10 Last administered on 01/21/19at 11:01; Admin Dose 1 MG; Start 01/21/19 at 11:00 Aspirin (Aspirin) 81 mg DAILY PO Last administered on 01/21/19 12:03; Admin Dose 81 MG; Start 01/21/19 at 11:30 MARY GARIBAY MD Jan 21, 2019 15:52
--- NOTE | 2019-01-21 17:07 | CONS ---
Assessment/Plan Assessment/Plan Hospital Course (Demo Recall) 88-year-old female with multiple medical problems including dementia, CHF, and coronary artery disease with a displaced right subtrochanteric hip fracture. I discussed treatment options with the family and patient including intramedullary nail and nonoperative treatment. I did discuss that nonoperative treatment is generally reserved for patients for hospice as not fixing this fracture s urgically would not allow immobilization of the patient and she would be bedridden for the rest of her life. Benefits and risks discussed with the patient family to include but not limited to risks of anesthesia, cardiopulmonary complications, , DVT, bleeding, infection, neurovascular injury, nonunion, malunion, hardware failure, fracture, need for further surgery. They understood these benefits and risks wished to proceed with surgery. Given that this is a displaced subtrochanteric hip fracture this is a complex hip fracture that will require more time than usual in the operating room and will likely require open reduction internal fixation as well as intramedullary nail. Plan: Medical optimization Pain control N.p.o. Nonweightbearing right lower extremity Plan for intramedullary nail and open reduction internal fixation tomorrow morning 01/22/2019 at 730 DVT prophylaxis: SCDs bilaterally Consultation Date/Type/Reason Admit Date/Time Date of Consultation: Jan 21, 2019 Reason for Consultation Right hip fracture Date/Time of Note DATE: 01/21/19 TIME: 16:59 Hx of Present Illness 88-year-old female with multiple medical problems including dementia, CHF and coronary artery disease who presents the emergency department after mechanical fall overnight. She was found to have a right subtrochanteric hip fracture. Orthopedics was consulted. Patient uses a walker at baseline. After her fall she is unable to get up. She was brought to the hospital. She does states she has some numbness over the top of her foot. Otherwise denies any other numbness or tingling. The patient lives with her daughter. Per the daughter her dementia is advanced but she still able to hold conversations and is aware of events happening in front of her. She is able to dress and feed herself. Patient denies fever, chills, shortness of breath, chest pain, nausea/vomiting, constipation, diarrhea Past Medical History CHF Coronary artery disease GERD Dementia Hypertension Hyperlipidemia Home Meds Active Scripts Nifedipine* (Nifedipine ER*) 60 Mg Tablet.sa, 60 MG PO DAILY, #30 TAB.SA Prov:BRIDGET CHAN SENIOR LEAD DEVELOPER 11/23/17 Reported Medications Solifenacin* (Vesicare*) 5 Mg Tablet, 5 MG PO DAILY, TAB 01/21/19 Spironolactone* (Aldactone*) 25 Mg Tablet, 25 MG PO BID, #60 TAB 01/21/19 Sacubitril/Valsartan (Entresto 24 mg-26 mg Tablet) 1 Each Tablet, 1 EACH PO BID, TAB 01/21/19 Memantine* (Namenda*) 10 Mg Tablet, 10 MG PO BID, #60 TAB 01/21/19 Metoprolol Succinate* (Toprol XL*) 50 Mg Tab.er.24h, 50 MG PO DAILY, #30 TAB 01/21/19 Furosemide* (Lasix*) 40 Mg Tablet, 40 MG PO BID, TAB 01/21/19 Clonidine Hcl* (Clonidine Hcl*) 0.3 Mg Tablet, 0.3 MG PO DAILY PRN for ELEVATED BLOOD PRESSURE, TAB 01/21/19 Aspirin (Low Dose Aspirin) 81 Mg Tablet.dr, 81 MG PO DAILY, #30 TAB 01/21/19 Esomeprazole Magnesium (Esomeprazole Magnesium) 40 Mg Capsule.dr, 40 MG PO BEFORE BREAKFAST, #30 CAP 11/17/17 Rosuvastatin Calcium* (Crestor*) 10 Mg Tablet, 10 MG PO QHS, #30 TAB 11/17/17 Albuterol Sulfate* (Ventolin HFA*) 18 Gm Hfa.aer.ad, 2 PUFF INHALATION Q4H PRN for WHEEZING AND SOB, #1 INHALER 11/17/17 Donepezil* (Donepezil*) 10 Mg Tablet, 10 MG PO DAILY, #30 TAB 11/17/17 Levothyroxine Sodium* (Levothyroxine Sodium*) 75 Mcg Tablet, 75 MG PO AC BREAKFAST, #30 11/17/17 Discontinued Reported Medications Solifenacin* (Vesicare*) 5 Mg Tablet, 5 MG PO DAILY, TAB 11/17/17 Ropinirole Hcl* (Ropinirole Hcl*) 0.5 Mg Tablet, 0.5 MG PO HS, TAB 11/17/17 Benzonatate* (Tessalon Perle*) 100 Mg Capsule, 100 MG PO Q8H PRN for COUGH, CAP 11/17/17 Calcium Carbonate ([id number]) 500 Mg Tablet, 500 MG PO BID, TAB 11/17/17 Aspirin* (Aspirin* Chew) 81 Mg Tab.chew, 81 MG PO DAILY, TAB.CHEW 11/17/17 Discontinued Scripts Clonidine Hcl* (Clonidine Hcl*) 0.1 Mg Tab, 0.1 MG PO DAILY, #30 TAB Prov:REGIDOBRIDGET Pulido SENIOR LEAD DEVELOPER 11/24/17 Metoprolol Succinate* (Toprol XL*) 25 Mg Tab.sr.24h, 12.5 MG PO DAILY, #30 TAB Prov:REGIDORBRIDGET SENIOR LEAD DEVELOPER 11/23/17 Fluconazole* (Fluconazole*) 200 Mg Tablet, 200 MG PO DAILY, #5 TAB Prov:BRIDGET CHAN SENIOR LEAD DEVELOPER 11/23/17 Oseltamivir Phosphate* (Tamiflu*) 30 Mg Capsule, 30 MG PO BID, #4 CAP Prov:REGIDOBRIDGET Pulido SENIOR LEAD DEVELOPER 11/23/17 Donepezil* (Donepezil*) 10 Mg Tablet, 10 MG PO DAILY, #30 TAB Prov:BRIDGET CHAN SENIOR LEAD DEVELOPER 11/23/17 Medications Current Medications IV Flush (NS 3 ml) 3 ml PER PROTOCOL IV ; Start 01/21/19 at 06:30 Ondansetron HCl (Zofran Inj) 4 mg Q6H PRN IV NAUSEA/VOMITING; Start 01/21/19 at 06:30 Acetaminophen (Tylenol Tab) 650 mg Q6H PRN PO .PAIN 1-3 OR TEMP; Start 01/21/19 at 06:30 Acetaminophen/ Hydrocodone Bitart ([place] (5/325)) 1 tab Q6H PRN PO .MOD PAIN 4- 6 Last administered on 01/21/19at 07:21; Admin Dose 1 TAB; Start 01/21/19 at 06:30 Docusate Sodium (Colace) 100 mg Q12H PRN PO .CONSTIPATION; Start 01/21/19 at 06:30 Bisacodyl (Dulcolax) 5 mg DAILY PRN PO .CONSTIPATION; Start 01/21/19 at 06:30 Albuterol (Ventolin Hfa) 2 puff Q4H PRN INH WHEEZING AND SOB; Start 01/21/19 at 07:00 Donepezil HCl (Aricept) 10 mg DAILY PO Last administered on 01/21/19at 12:03; Admin Dose 10 MG; Start 01/21/19 at 09:00 Levothyroxine Sodium (Synthroid) 75 mcg AC BREAKFAST PO Last administered on 01/21/19at 08:25; Admin Dose 75 MCG; Start 01/21/19 at 08:00 Nifedipine (Procardia Xl) 60 mg DAILY PO ; Start 01/21/19 at 09:00 Pantoprazole (Protonix Tab) 40 mg DAILY@06 PO ; Start 01/21/19 at 09:00 Atorvastatin Calcium (Lipitor) 40 mg DAILY@21 PO ; Start 01/21/19 at 21:00 Hydromorphone HCl (Dilaudid) 1 mg Q3H PRN IV SEVERE PAIN LEVEL 7-10 Last administered on 01/21/19at 11:01; Admin Dose 1 MG; Start 01/21/19 at 11:00 Aspirin (Aspirin) 81 mg DAILY PO Last administered on 01/21/19at 12:03; Admin Dose 81 MG; Start 01/21/19 at 11:30 Allergies: Coded Allergies: No Known Allergy (Unverified , 11/17/17) Past Surgical History Past Surgical Hx: noncontributory Family History Significant Family History: no pertinent family hx Social History Alcohol Use: none Smoking Status: Never smoker Drug Use: none Exam/Review of Systems Exam Vitals Vital Signs Date Temp Pulse Resp B/P (MAP) Pulse Ox O2 O2 Flow FiO2 Time Delivery Rate 01/21/19 98.3 55 18 151/69 97 15:41 (96) 01/21/19 Room Air 07:51 Exam General: Awake, alert, in no acute distress, pleasant and cooperative Heart: regular rhythm Lungs: breathing comfortably, no tachypnea or dyspnea MUSCULOSKELETAL: Right lower externally: Skin intact. The leg is shortened and externally rotated. There is groin pain to logroll. Sensation decreased to light touch over the superficial peroneal nerve distribution. Sensation intact to light touch in a sural, saphenous, deep peroneal, medial and lateral plantar nerve distribution. Motor is intact, patient able to dorsiflex and plantarflex ankle and extend and flex great toe. Dorsalis Pedis pulse +2, Brisk capillary refill. Compartments are soft. Calves non-tender to palpation bilaterally. Results Result Diagram: 01/21/19 0605 01/21/19 1052 Results 24hrs Laboratory Tests Test 01/21/19 06:05 01/21/19 10:51 01/21/19 10:52 White Blood Count 7.1 Red Blood Count 3.76 L Hemoglobin 10.8 L Hematocrit 33.4 L Mean Corpuscular Volume 88.8 Mean Corpuscular Hemoglobin 28.7 L Mean Corpuscular Hemoglobin Concent 32.3 Red Cell Distribution Width 12.6 Platelet Count 215 Mean Platelet Volume 11.5 H Immature Granulocytes % 0.400 Neutrophils % 52.4 Lymphocytes % 32.9 Monocytes % 9.9 Eosinophils % 4.0 Basophils % 0.4 Nucleated Red Blood Cells % 0.0 Immature Granulocytes # 0.030 Neutrophils # 3.7 Lymphocytes # 2.3 Monocytes # 0.7 Eosinophils # 0.3 Basophils # 0.0 Nucleated Red Blood Cells # 0.0 Prothrombin Time 13.7 Prothrombin Time Ratio 1.1 INR International Normalized Ratio 1.04 Activated Partial Thromboplast Time 29.0 Sodium Level 141 139 Potassium Level 5.5 H 5.9 H Chloride Level 109 109 Carbon Dioxide Level 20 L 22 Anion Gap 12 8 Blood Urea Nitrogen 50 H 46 H Creatinine 1.31 H 1.13 H Est Glomerular Filtrat Rate mL/min Glucose Level 110 125 Calcium Level 9.4 8.9 Troponin I < 0.012 < 0.012 Thyroid Stimulating Hormone (TSH) 0.821 Creatine Kinase 54 Creatine Kinase Index 1.7 Creatinine Kinase MB (Mass) 0.91 Imaging Imaging AP pelvis, AP lateral of the right hip and femur were personally reviewed: Demonstrate an acute spiral subtrochanteric hip fracture. There is significant displacement and angulation of the fracture. Medications Medication Current Medications IV Flush (NS 3 ml) 3 ml PER PROTOCOL IV ; Start 01/21/19 at 06:30 Ondansetron HCl (Zofran Inj) 4 mg Q6H PRN IV NAUSEA/VOMITING; Start 01/21/19 at 06:30 Acetaminophen (Tylenol Tab) 650 mg Q6H PRN PO .PAIN 1-3 OR TEMP; Start 01/21/19 at 06:30 Acetaminophen/ Hydrocodone Bitart ([place] (5/325)) 1 tab Q6H PRN PO .MOD PAIN 4- 6 Last administered on 01/21/19at 07:21; Admin Dose 1 TAB; Start 01/21/19 at 06:30 Docusate Sodium (Colace) 100 mg Q12H PRN PO .CONSTIPATION; Start 01/21/19 at 06:30 Bisacodyl (Dulcolax) 5 mg DAILY PRN PO .CONSTIPATION; Start 01/21/19 at 06:30 Albuterol (Ventolin Hfa) 2 puff Q4H PRN INH WHEEZING AND SOB; Start 01/21/19 at 07:00 Donepezil HCl (Aricept) 10 mg DAILY PO Last administered on 01/21/19at 12:03; Admin Dose 10 MG; Start 01/21/19 at 09:00 Levothyroxine Sodium (Synthroid) 75 mcg AC BREAKFAST PO Last administered on 01/21/19at 08:25; Admin Dose 75 MCG; Start 01/21/19 at 08:00 Nifedipine (Procardia Xl) 60 mg DAILY PO ; Start 01/21/19 at 09:00 Pantoprazole (Protonix Tab) 40 mg DAILY@06 PO ; Start 01/21/19 at 09:00 Atorvastatin Calcium (Lipitor) 40 mg DAILY@21 PO ; Start 01/21/19 at 21:00 Hydromorphone HCl (Dilaudid) 1 mg Q3H PRN IV SEVERE PAIN LEVEL 7-10 Last administered on 01/21/19 11:01; Admin Dose 1 MG; Start 01/21/19 at 11:00 Aspirin (Aspirin) 81 mg DAILY PO Last administered on 01/21/19at 12:03; Admin Dose 81 MG; Start 01/21/19 at 11:30 SHAN MCKEON MD Jan 21, 2019 17:07
[2019-01-21 20:18] VITALS: BP 122/59; PULSE 59; RESP 18
[2019-01-21] MEDS: ATORVASTATIN 40 MG TAB PO SCH (20:31)
[2019-01-21] MEDS ORDERED: ALBUTEROL 0.083% (NEB) 2.5 MG/3 ML AMP HHN ONE (21:52)
[2019-01-21] MEDS ORDERED: FUROSEMIDE 20 MG INJ IV ONE (22:00)
[2019-01-21] MEDS ORDERED: DEXTROSE 50% 50 ML SYRINGE IV PRN (22:00)
[2019-01-21] MEDS ORDERED: DEXTROSE 50% 50 ML SYRINGE IV ONE (22:00)
[2019-01-21] MEDS ORDERED: INSULIN REGULAR, HUMAN 100 UNIT/1 ML 3ML VIAL IVP ONE (22:01)
[2019-01-21 23:51] VITALS: BP 99/53; PULSE 72; RESP 17
[2019-01-22] VITALS (48 sets, daily range): BP systolic 79–148; BP diastolic 34–75; PULSE 66–89; RESP 9–38
[2019-01-22] MEDS ORDERED: SOD CHLORIDE 0.9% 1,000 ML IV SCH (02:30)
[2019-01-22] MEDS: PANTOPRAZOLE (EC) 40 MG TAB PO SCH (06:00)
[2019-01-22] MEDS: HYDROmorphONE 1 MG/ML SYG IV PRN ×2 (06:02→18:26)
[2019-01-22] MEDS: LEVOTHYROXINE 75 MCG TAB PO SCH (06:29)
[2019-01-22] MEDS ORDERED: SOD CHLORIDE 0.9% 500 ML IV ONE (06:30)
[2019-01-22] MEDS ORDERED: POLYMYXIN/BACITRACIN 1L IRRIG ONE (07:22)
[2019-01-22] MEDS ORDERED: ALBUMIN HUMAN 5% 250 ML INJ ONE (07:30)
--- NOTE | 2019-01-22 07:44 | PREAC ---
Date/Time of Note Date/Time of Note DATE: 01/22/19 TIME: 07:38 Anesthesia Eval and Record Evaluation Time Pre-Procedure Interview DATE: 01/22/19 TIME: 07:38 Age 88 Sex female NPO: 8 hrs Preoperative diagnosis Right Hip Fracture Planned procedure Right Hip IM [place], ORIF of Right Hip Past Medical History Past Medical History: Includes Cardio: HTN, Dyslipidemia, CAD, Arrythmia (Hx of A-Fib) Endo: Hypothyroid Pulm: COPD Neuro: Other (Dementia) Musculoskeletal: Osteoarthritis Renal: CKD Heme: Anemia Surgery & Anesthesia Issues No known issue Meds Anticoagulation: No Beta Gideon within 24 hr: No Reason Beta Gideon not given: Pt. not on B-Gideon Active Scripts Nifedipine* (Nifedipine ER*) 60 Mg Tablet.sa, 60 MG PO DAILY, #30 TAB.SA Prov:ZABRINAAshokBRIDGET RETAIL LINK ANALYST 11/23/17 Reported Medications Solifenacin* (Vesicare*) 5 Mg Tablet, 5 MG PO DAILY, TAB 01/21/19 Spironolactone* (Aldactone*) 25 Mg Tablet, 25 MG PO BID, #60 TAB 01/21/19 Sacubitril/Valsartan (Entresto 24 mg-26 mg Tablet) 1 Each Tablet, 1 EACH PO BID, TAB 01/21/19 Memantine* (Namenda*) 10 Mg Tablet, 10 MG PO BID, #60 TAB 01/21/19 Metoprolol Succinate* (Toprol XL*) 50 Mg Tab.er.24h, 50 MG PO DAILY, #30 TAB 01/21/19 Furosemide* (Lasix*) 40 Mg Tablet, 40 MG PO BID, TAB 01/21/19 Clonidine Hcl* (Clonidine Hcl*) 0.3 Mg Tablet, 0.3 MG PO DAILY PRN for ELEVATED BLOOD PRESSURE, TAB 01/21/19 Aspirin (Low Dose Aspirin) 81 Mg Tablet.dr, 81 MG PO DAILY, #30 TAB 01/21/19 Esomeprazole Magnesium (Esomeprazole Magnesium) 40 Mg Capsule.dr, 40 MG PO BEF ORE BREAKFAST, #30 CAP 11/17/17 Rosuvastatin Calcium* (Crestor*) 10 Mg Tablet, 10 MG PO QHS, #30 TAB 11/17/17 Albuterol Sulfate* (Ventolin HFA*) 18 Gm Hfa.aer.ad, 2 PUFF INHALATION Q4H PRN for WHEEZING AND SOB, #1 INHALER 11/17/17 Donepezil* (Donepezil*) 10 Mg Tablet, 10 MG PO DAILY, #30 TAB 11/17/17 Levothyroxine Sodium* (Levothyroxine Sodium*) 75 Mcg Tablet, 75 MG PO AC BREAKFAST, #30 11/17/17 Discontinued Reported Medications Solifenacin* (Vesicare*) 5 Mg Tablet, 5 MG PO DAILY, TAB 11/17/17 Ropinirole Hcl* (Ropinirole Hcl*) 0.5 Mg Tablet, 0.5 MG PO HS, TAB 11/17/17 Benzonatate* (Tessalon Perle*) 100 Mg Capsule, 100 MG PO Q8H PRN for COUGH, CAP 11/17/17 Calcium Carbonate ([id number]) 500 Mg Tablet, 500 MG PO BID, TAB 11/17/17 Aspirin* (Aspirin* Chew) 81 Mg Tab.chew, 81 MG PO DAILY, TAB.CHEW 11/17/17 Discontinued Scripts Clonidine Hcl* (Clonidine Hcl*) 0.1 Mg Tab, 0.1 MG PO DAILY, #30 TAB Prov:BRIDGET CHAN RETAIL LINK ANALYST 11/24/17 Metoprolol Succinate* (Toprol XL*) 25 Mg Tab.sr.24h, 12.5 MG PO DAILY, #30 TAB Prov:BRIDGET CHAN RETAIL LINK ANALYST 11/23/17 Fluconazole* (Fluconazole*) 200 Mg Tablet, 200 MG PO DAILY, #5 TAB Prov:BRIDGET CHAN RETAIL LINK ANALYST 11/23/17 Oseltamivir Phosphate* (Tamiflu*) 30 Mg Capsule, 30 MG PO BID, #4 CAP Prov:REGBRIDGET GARCIA RETAIL LINK ANALYST 11/23/17 Donepezil* (Donepezil*) 10 Mg Tablet, 10 MG PO DAILY, #30 TAB Prov:BRIDGET CHAN RETAIL LINK ANALYST 11/23/17 Current Medications IV Flush (NS 3 ml) 3 ml PER PROTOCOL IV ; Start 01/21/19 at 06:30 Ondansetron HCl (Zofran Inj) 4 mg Q6H PRN IV NAUSEA/VOMITING; Start 01/21/19 at 06:30 Acetaminophen (Tylenol Tab) 650 mg Q6H PRN PO .PAIN 1-3 OR TEMP; Start 01/21/19 at 06:30 Acetaminophen/ Hydrocodone Bitart ([place] (5/325)) 1 tab Q6H PRN PO .MOD PAIN 4- 6 Last administered on 01/21/19at 07:21; Admin Dose 1 TAB; Start 01/21/19 at 06:30 Docusate Sodium (Colace) 100 mg Q12H PRN PO .CONSTIPATION; Start 01/21/19 at 06:30 Bisacodyl (Dulcolax) 5 mg DAILY PRN PO .CONSTIPATION; Start 01/21/19 at 06:30 Albuterol (Ventolin Hfa) 2 puff Q4H PRN INH WHEEZING AND SOB; Start 01/21/19 at 07:00 Donepezil HCl (Aricept) 10 mg DAILY PO Last administered on 01/21/19at 12:03; Admin Dose 10 MG; Start 01/21/19 at 09:00 Levothyroxine Sodium (Synthroid) 75 mcg AC BREAKFAST PO Last administered on 01/21/19at 08:25; Admin Dose 75 MCG; Start 01/21/19 at 08:00 Nifedipine (Procardia Xl) 60 mg DAILY PO ; Start 01/21/19 at 09:00 Pantoprazole (Protonix Tab) 40 mg DAILY@06 PO ; Start 01/21/19 at 09:00 Atorvastatin Calcium (Lipitor) 40 mg DAILY@21 PO Last administered on 01/21/19at 20:31; Admin Dose 40 MG; Start 01/21/19 at 21:00 Hydromorphone HCl (Dilaudid) 1 mg Q3H PRN IV SEVERE PAIN LEVEL 7-10 Last administered on 01/22/19at 06:02; Admin Dose 1 MG; Start 01/21/19 at 11:00 Aspirin (Aspirin) 81 mg DAILY PO Last administered on 01/21/19at 12:03; Admin Dose 81 MG; Start 01/21/19 at 11:30 Dextrose (D50w Syringe) ONCE PRN IV DECREASED GLUCOSE; Start 01/21/19 at 22:00 Meds reviewed: Yes Allergies Coded Allergies: No Known Allergy (Unverified , 11/17/17) Allergies Reviewed: Yes Labs/Studies Labs Reviewed: Reviewed by anesthesiologist Result Diagram: 1931 01/22/19 0531 Laboratory Tests 01/22/19 05:31 test: N/A Studies: ECG (A-Fib), CXR (Cardiomegaly with mild central venous congestion.) Pre-procedure Exam Last vitals Vital Signs Date Temp Pulse Resp B/P (MAP) Pulse Ox O2 O2 Flow FiO2 Time Delivery Rate 01/22/19 97.5 74 18 137/63 98 03:53 (87) 01/21/19 21 22:12 01/21/19 Room Air 07:51 Airway: Adequate mouth opening, Adequate thyromental dist Mallampati: Mallampati II Teeth: Abnormal (Total Dentures) Lung: Normal Heart: Normal ASA Physical Status ASA physical status: 4 Emergency: E Planned Anesthetic General/MAC: ETT, MAC Neuraxial: Spinal Nerve block: Other (Right Fascia Iliaca) Planned Pain Management Sub-arachniod narcotics, Single shot nerve block, Parenteral pain med Pre-operative Attestations Prior to commencing anesthesia and surgery, the patient was re-evaluated, there was verification of: *The patient's identity *The results of appropriate recent lab work and preoperative vital signs *The above evaluation not changing prior to induction *Anesthetic plan, risk benefits, alternative and complications discussed with patient/family; questions answered; patient/family understands, accepts and wishes to proceed. OSCAR CHAVARRIA MD Jan 22, 2019 07:44
--- NOTE | 2019-01-22 07:44 | HPN ---
Date/Time of Note Date/Time of Note DATE: 01/22/19 TIME: 07:41 Interval H&P Admission Note Pt. seen H&P reviewed: No system changes Patient denies fever, chills, shortness of breath, chest pain, nausea/vomiting, constipation, diarrhea, numbness, and tingling. MUSCULOSKELETAL: Right lower extremity Skin intact Sensation slightly decreased to superficial peroneal nerve distribution. Sensation grossly intact to light touch in a sural, saphenous, deep peroneal, medial and lateral plantar nerve distribution. Motor is intact, patient able to dorsiflex and plantarflex ankle and extend and flex great toe. Dorsalis Pedis pulse +2, Brisk capillary refill. Compartments are soft. Calves non-tender to palpation bilaterally. SHAN MCKEON MD Jan 22, 2019 07:44
[2019-01-22] MEDS ORDERED: PHENYLephrine (100 MCG/ML) 10ML SYG ONE (07:53)
[2019-01-22] MEDS ORDERED: PROPOFOL 100 ML ONE (07:53)
[2019-01-22] MEDS ORDERED: FENTAnyl 50 MCG/ML VIAL ONE (07:53)
[2019-01-22] MEDS ORDERED: CEFAZOLIN 1 GM INJ ONE ×2 (07:53→16:54)
[2019-01-22] MEDS ORDERED: PHENYLephrine 10 MG INJ ONE (08:50)
[2019-01-22] MEDS: DONEPEZIL 10 MG TAB PO SCH (09:00)
[2019-01-22] MEDS: NIFEdipine (XL) 60 MG TAB PO SCH (09:00)
[2019-01-22] MEDS: ASPIRIN 81 MG TAB PO SCH (09:00)
[2019-01-22] MEDS ORDERED: ALBUMIN HUMAN 5% 250 ML ONE (09:40)
[2019-01-22] MEDS ORDERED: HETASTARCH 6% NACL 500 ML ONE (09:40)
[2019-01-22] MEDS ORDERED: PHENYLephrine 20MG IN 250 ML 250 ML IV ONE (10:00)
[2019-01-22] MEDS ORDERED: TRANEXAMIC ACID 1GM/100ML(PMX) 200 ML ONE (11:15)
[2019-01-22] MEDS ORDERED: DIPHENHYDRAMINE 50 MG INJ IV PRN ×2 (12:30)
[2019-01-22] MEDS ORDERED: ACETAMINOPHEN 500 MG TAB PO PRN (12:30)
[2019-01-22] MEDS ORDERED: LABETALOL HCL 20MG INJ IV PRN (12:30)
[2019-01-22] MEDS ORDERED: ONDANSETRON 4 MG INJ IV PRN ×2 (12:30)
[2019-01-22] MEDS ORDERED: HYDROmorphONE 0.5 MG/0.5 ML SYG IV PRN ×2 (12:30)
[2019-01-22] MEDS ORDERED: ALBUMIN HUMAN 5% 250 ML IV PRN (12:30)
[2019-01-22] MEDS ORDERED: hydrALAzine 20 MG INJ IV PRN (12:30)
[2019-01-22] MEDS ORDERED: NALOXONE (0.4 MG/ML) INJ IV PRN (12:30)
[2019-01-22] MEDS ORDERED: EPHEDrine 25 MG/5 ML SYG IV PRN (12:30)
[2019-01-22] MEDS ORDERED: MEPERIDINE 25 MG INJ IV PRN (12:30)
[2019-01-22] MEDS ORDERED: morphine 2 MG INJ IV PRN ×2 (12:30)
[2019-01-22] MEDS ORDERED: FENTAnyl 50 MCG/ML VIAL IV PRN ×3 (12:30)
[2019-01-22] MEDS ORDERED: HYDROCODONE/APAP (5/325) TAB PO PRN (12:30)
[2019-01-22] MEDS ORDERED: NALBUPHINE HCL (10 MG/1 ML) INJ IV PRN (12:30)
[2019-01-22] MEDS ORDERED: METOCLOPRAMIDE 10 MG INJ IV PRN (12:30)
[2019-01-22] MEDS ORDERED: OXYCODONE/ACETAMINOPHEN (5/325) TAB PO PRN (12:30)
[2019-01-22] MEDS ORDERED: HYDROmorphONE 1 MG/5 ML IV SYRINGE IV PRN ×3 (12:30)
[2019-01-22] MEDS ORDERED: ROPIVACAINE 0.5 % 30 ML VIAL ONE (13:02)
[2019-01-22] MEDS ORDERED: ACETAMINOPHEN 325 MG TAB PO PRN (13:30)
--- NOTE | 2019-01-22 16:41 | PAC ---
Date/Time of Note Date/Time of Note DATE: 01/22/19 TIME: 16:41 Post-Anesthesia Notes Post-Anesthesia Note Last documented vital signs Vital Signs Date Temp Pulse Resp B/P (MAP) Pulse Ox O2 O2 Flow FiO2 Time Delivery Rate 01/22/19 81 16:00 01/22/19 98.7 78 17 128/48 75 Nasal 2.0 15:50 (74) Cannula 01/22/19 98.6 13:56 01/21/19 21 22:12 Activity: WNL Respiratory function: WNL Cardiovascular function: WNL Mental status: Baseline Pain reasonably controlled: Yes Hydration appropriate: Yes Nausea/Vomiting absent: Yes OSCAR CHAVARRIA MD Jan 22, 2019 16:41
--- NOTE | 2019-01-22 16:46 | PN ---
Date/Time of Note Date/Time of Note DATE: 01/22/19 TIME: 16:43 Assessment/Plan VTE Prophylaxis Risk score (from Ns)>0 risk: 8 SCD applied (from Ns): Yes Pharmacological prophylaxis: LMWH Lines/Catheters IV Catheter Type (from Nrsg): Central Line Central line still needed: Yes Urinary Cath still in place: Yes Reason Cath still needed: skin wounds contaminated by urine Assessment/Plan Assessment/Plan 88 yo woman with history of CAD and CABG, CHF presents with R hip fracture # acute right hip fracture: - Hip x-ray: Acute, comminuted and mildly displaced spiral type fracture of the proximal femur in the subtrochanteric region with extension into the lesser trochanter. - s/p medullary pinning by Dr. Lara on 01/22. - PT, OT - Pain control - anticoagulation per ortho # mechanical fall: Patient denies any loss of consciousness or head trauma. PT evaluation postop # coronary artery disease: History of CABG. Previous echocardiogram in 2018 showed an ejection fraction of 40% with diastolic dysfunction. We will resume patient's home medications of Entresto, spironolactone, Crestor. Will hold aspirin and metoprolol at the current time given patient's bradycardia. Dr. Stokes following. # hypertension: We will continue nifedipine, spinal lactone, will hold metoprolol # Hyperlipidemia: Continue statin # mixed systolic diastolic CHF: Patient does not appear to be volume overloaded at the current time. Continue Entresto, nifedipine, aspirin lactone, will hold beta-marivel given bradycardia. Hold aspirin # dementia: Continue memantine # GERD: Continue omeprazole # DVT GI prophylaxis: SCDs, home PPI Result Diagram: 01/22/19 1416 01/22/19 1416 Subjective 24 Hr Interval Summary Free Text/Dictation No acute overnight events. Patient taken for femoral medullary pinning today. Postoperatively doing well. Slightly hypotensive, Admitted to ICU. Briefly on pressors, but discontinued upon transfer. Exam/Review of Systems Exam Vitals Vital Signs Date Temp Pulse Resp B/P (MAP) Pulse Ox O2 O2 Flow FiO2 Time Delivery Rate 01/22/19 81 16:00 01/22/19 17 128/48 75 Nasal 2.0 15:50 (74) Cannula 01/22/19 98.6 13:56 01/21/19 21 22:12 Intake and Output 01/21/19 01/21/19 01/22/19 1515:00 23:00 07:00 IntakeIntake Total 300 ml 420 ml OutputOutput Total 900 ml 930 ml BalanceBalance 300 ml -480 ml -930 ml Exam General: Patient is currently lying in bed, comfortable appearing HEENT: Atraumatic, normocephalic. The pupils are equal, round and reactive. Extraocular motor are intact Neck: Supple with full range of motion. No rigidity or meningismus Chest: Nontender Lungs: Clear to auscultation bilaterally no crackles rales or wheezing Heart: Sinus bradycardia Abdomen: Soft , nontender, nondistended , bowel sounds are present. No guarding no rebound tenderness , No masses or organomegaly. No costovertebral temporal angle mass Extremities: Right hip: Dressing clean/dry/intact. Results Results 24hrs Laboratory Tests Test 01/21/19 17:33 01/21/19 22:53 01/21/19 23:23 01/22/19 01:01 Creatine Kinase 53 Creatine Kinase 1.7 Index Creatinine Kinase 0.91 MB (Mass) Troponin I < 0.012 Bedside Glucose 156 296 H Sodium Level 139 Potassium Level 4.6 Chloride Level 105 Carbon Dioxide 23 Level Anion Gap 11 Blood Urea 35 #H Nitrogen Creatinine 1.21 H Est Glomerular Filtrat Rate mL/min Glucose Level 189 Calcium Level 9.0 Test 01/22/19 05:31 01/22/19 12:00 01/22/19 14:16 White Blood Count 8.6 # 11.3 #H Red Blood Count 3.18 L 3.15 L Hemoglobin 9.1 L 9.2 L Hematocrit 28.1 L 27.1 L Mean Corpuscular 88.4 86.0 Volume Mean Corpuscular 28.6 L 29.2 Hemoglobin Mean Corpuscular 32.4 33.9 Hemoglobin Concen t Red Cell 12.8 13.5 Distribution Width Platelet Count 186 93 #L Mean Platelet 11.5 H 10.9 H Volume Immature 0.500 H 0.400 Granulocytes % Neutrophils % 77.2 H 82.2 H Lymphocytes % 12.5 L 7.7 L Monocytes % 9.2 9.3 Eosinophils % 0.4 0.2 Basophils % 0.2 0.2 Nucleated Red 0.0 0.0 Blood Cells % Immature 0.040 H 0.040 H Granulocytes # Neutrophils # 6.6 9.3 H Lymphocytes # 1.1 0.9 Monocytes # 0.8 1.1 H Eosinophils # 0.0 0.0 Basophils # 0.0 0.0 Nucleated Red 0.0 0.0 Blood Cells # Sodium Level 138 138 Potassium Level 4.8 5.5 H Chloride Level 106 114 H Carbon Dioxide 23 19 L Level Anion Gap 9 5 Blood Urea 37 H 31 H Nitrogen Creatinine 1.21 H 1.06 H Est Glomerular Filtrat Rate mL/min Glucose Level 132 # 154 Hemoglobin A1c 5.7 Calcium Level 8.8 7.0 L Magnesium Level 1.9 1.8 Total Bilirubin 0.5 Direct Bilirubin 0.00 Indirect 0.5 Bilirubin Aspartate Amino 18 Transf (AST/SGOT) Alanine 15 Aminotransferase (ALT/SGPT) Alkaline 43 Phosphatase Total Protein 6.2 Albumin 3.5 Globulin 2.70 Albumin/Globulin 1.29 Ratio Triglycerides 80 Level Cholesterol Level 112 LDL Cholesterol, 64 Calculated HDL Cholesterol 32 L Cholesterol/HDL 3.5 Ratio Blood Gas Blood arterial Specimen Source Arterial Blood 01/22/2019 12:03: Date Drawn 44 PM Arterial Blood pH 7.264 *L (Temp corrected) Arterial Blood 38.4 pCO2 (Temp correct) Arterial Blood 192.7 H pO2 (Temp corrected) Arterial Blood 17.0 L HCO3 Arterial Blood -9.3 L Base Excess Arterial Blood 98.6 Oxygen Saturation Trevon Test N/A Arterial Blood A-Line Gas Puncture Site Arterial 0.3 Blood Carboxyhemo globin Arterial Blood 0.2 Methemoglobin Blood Gas A-a O2 142.3 H Differential Oxyhemoglobin 98.1 Percent Blood Gas 37.0 Temperature Blood Gas MASK - SIMPLE Modality FiO2 53.0 Blood Gas A[facility]A [facility]ELAR Critical Value Read Back Blood Gas DT Notified Whom Blood Gas 01/22/2019 12:11: Notified Time 02 PM Medications Medication Current Medications IV Flush (NS 3 ml) 3 ml PER PROTOCOL IV ; Start 01/21/19 at 06:30 Acetaminophen/ Hydrocodone Bitart (Elcho (5/325)) 1 tab Q6H PRN PO .MOD PAIN 4- 6 Last administered on 01/21/19at 07:21; Admin Dose 1 TAB; Start 01/21/19 at 06:30 Docusate Sodium (Colace) 100 mg Q12H PRN PO .CONSTIPATION; Start 01/21/19 at 06:30 Bisacodyl (Dulcolax) 5 mg DAILY PRN PO .CONSTIPATION; Start 01/21/19 at 06:30 Albuterol (Ventolin Hfa) 2 puff Q4H PRN INH WHEEZING AND SOB; Start 01/21/19 at 07:00 Donepezil HCl (Aricept) 10 mg DAILY PO Last administered on 01/21/19at 12:03; Admin Dose 10 MG; Start 01/21/19 at 09:00 Levothyroxine Sodium (Synthroid) 75 mcg AC BREAKFAST PO Last administered on 01/21/19at 08:25; Admin Dose 75 MCG; Start 01/21/19 at 08:00 Nifedipine (Procardia Xl) 60 mg DAILY PO ; Start 01/21/19 at 09:00 Pantoprazole (Protonix Tab) 40 mg DAILY@06 PO ; Start 01/21/19 at 09:00 Atorvastatin Calcium (Lipitor) 40 mg DAILY@21 PO Last administered on 01/21/19at 20:31; Admin Dose 40 MG; Start 01/21/19 at 21:00 Hydromorphone HCl (Dilaudid) 1 mg Q3H PRN IV SEVERE PAIN LEVEL 7-10 Last administered on 01/22/19at 06:02; Admin Dose 1 MG; Start 01/21/19 at 11:00 Aspirin (Aspirin) 81 mg DAILY PO Last administered on 01/21/19at 12:03; Admin Dose 81 MG; Start 01/21/19 at 11:30 Dextrose (D50w Syringe) ONCE PRN IV DECREASED GLUCOSE; Start 01/21/19 at 22:00 Hydromorphone HCl (Dilaudid) 0.2 mg PACU PRN IV MILD PAIN 1-3; Start 01/22/19 at 12:30; Stop 01/22/19 at 17:00 Hydromorphone HCl (Dilaudid) 0.4 mg PACU PRN IV MOD PAIN 4-6 Last administered on 01/22/19at 14:27; Admin Dose 0.4 MG; Start 01/22/19 at 12:30; Stop 01/22/19 at 17:00 Hydromorphone HCl (Dilaudid) 0.6 mg PACU PRN IV SEVERE PAIN 7-10; Start 01/22/19 at 12:30; Stop 01/22/19 at 17:00 Fentanyl (Sublimaze) 25 mcg PACU ORDER PRN IV MILD PAIN 1-3; Start 01/22/19 at 12:30; Stop 01/22/19 at 17:00 Fentanyl (Sublimaze) 50 mcg PACU ORDER PRN IV MOD PAIN 4-6; Start 01/22/19 at 12:30; Stop 01/22/19 at 17:00 Fentanyl (Sublimaze) 75 mcg PACU ORDER PRN IV SEVERE PAIN 7-10; Start 01/22/19 at 12:30; Stop 01/22/19 at 17:00 Oxycodone/ Acetaminophen (Percocet (5/ 325)) 1 tab PACU ORDER PRN PO .PAIN 1-5; Start 01/22/19 at 12:30; Stop 01/22/19 at 17:00 Ondansetron HCl (Zofran Inj) 4 mg PACU ORDER PRN IV NAUSEA/VOMITING; Start 01/22/19 at 12:30; Stop 01/22/19 at 17:00 Metoclopramide HCl (Reglan) 10 mg PACU ORDER PRN IV NAUSEA/VOMITING; Start 01/22/19 at 12:30; Stop 01/22/19 at 17:00 Labetalol HCl (Labetalol) 5 mg PACU ORDER PRN IV HIGH BLOOD PRESSURE; Start 01/22/19 at 12:30; Stop 01/22/19 at 17:00 Hydralazine HCl (Apresoline) 5 mg PACU ORDER PRN IV HIGH BLOOD PRESSURE; Start 01/22/19 at 12:30; Stop 01/22/19 at 17:00 Ephedrine Sulfate 5 mg PACU ORDER PRN IV BLOOD PRESSURE SUPPORT; Start 01/22/19 at 12:30; Stop 01/22/19 at 17:00 Albumin Human 250 ml @ 750 mls/hr PACU ORDER PRN IV BP SUPPORT; Start 01/22/19 at 12:30; Stop 01/22/19 at 17:00 Meperidine HCl (Demerol) 25 mg PACU ORDER PRN IV .RIGORS; Start 01/22/19 at 12:30; Stop 01/22/19 at 17:00 Diphenhydramine HCl (Benadryl) 25 mg PACU ORDER PRN IV .PRURITUS; Start 01/22/19 at 12:30; Stop 01/22/19 at 17:00 Hydromorphone HCl (Dilaudid) 0.4 mg Q2H PRN IV .PAIN 6-10; Start 01/22/19 at 12:30 Acetaminophen/ Hydrocodone Bitart (Elcho (5/325)) 1 tab Q4H PRN PO .PAIN 4-6; Start 01/22/19 at 12:30 Diphenhydramine HCl (Benadryl) 25 mg Q4H PRN IV .PRURITUS; Start 01/22/19 at 12:30 Ondansetron HCl (Zofran Inj) 4 mg Q6H PRN IV .NAUSEA/VOMITING; Start 01/22/19 at 12:30 Naloxone HCl (Narcan) 0.2 mg Q2M PRN IV .RESP RATE; Start 01/22/19 at 12:30 Miscellaneous Information (* Miscellaneous Pharmacy Order) FENTANYL: 20 MCG SPI... GIVEN NEURAXIAL XX ; Start 01/22/19 at 12:30 Acetaminophen (Tylenol Tab) 650 mg Q6H PRN PO .PAIN 1-3 OR TEMP; Start 01/22/19 at 13:30 Enoxaparin Sodium (Lovenox) 30 mg DAILY SC ; Start 01/24/19 at 09:00 Cefazolin Sodium 50 ml @ 100 mls/hr Q12H IVPB ; Start 01/22/19 at 15:00; Stop 01/23/19 at 15:29 MARY GARIBAY MD Jan 22, 2019 16:46
[2019-01-22] MEDS: CEFAZOLIN 1 GM/50 ML (PMX) 50 ML IVPB SCH (16:51)
[2019-01-22] MEDS ORDERED: FUROSEMIDE 20 MG INJ IV ONE (17:00)
[2019-01-22] MEDS: ATORVASTATIN 40 MG TAB PO SCH (19:48)
--- NOTE | 2019-01-22 20:34 | OPR ---
Date/Time of Note Date/Time of Note DATE: 01/22/19 TIME: 20:24 Operative Report Procedure Date: Jan 22, 2019 Preoperative Diagnosis Right displaced subtrochanteric hip fracture Postoperative Diagnosis As above Operation/Procedure Performed Open reduction internal fixation right subtrochanteric hip fracture and intramedullary nail of right subtrochanteric hip fracture Modifier 22 secondary to significant increase in complexity which resulted in 50% increase time and effort. Surgeon see signature line Senior Applications Architect None Anesthesia Type: general, spinal Estimated Blood Loss: other (1300) Transfusion 3 units PRBCs Specimen None Grafts/Implants Hermon gamma cephalo-medullary nail size 10 x 320, 125 degree angle 95 mm lag screw 2 distal interlocking screws Vila [employer] Nephew cables x2 Complications none Pt Condition Post Procedure: guarded Disposition: other (ICU) Procedure Description Indications and consent: This is a 88-year-old woman with history of CHF, dementia, coronary artery disease who presented to the emergency department after a mechanical fall and sustained a right displaced subtrochanteric hip fracture. Orthopedics was consu lted. Preoperative clearance process was begun. I discussed treatment options with the patient. I recommended surgical treatment as nonoperative treatment would leave the patient bed bound. I reviewed the benefits and risks. The risks include but not limited to medical complications, cardiopulmonary complications, anesthetic complications, bleeding, infection, nonunion, maluni on, hardware failure, continued pain, need for further surgery, need for removal of hardware, neurovascular injury. The patient understood these benefits and risks and wished to proceed with surgery. Procedure in detail: Patient was brought to the operating room. The patient was given a spinal anesthetic and placed in supine position on the [place] table. All bony prominences were well-padded. Patient was appropriately positioned and put in traction on the right lower extremity. At this time fluoroscopy was used to confirm positioning as well as reduction of right subtrochanteric hip fracture. The fracture would not reduce as expected given that this was a subtrochanteric hip fracture. At this time the right lower extremity was prepped and draped in normal sterile fashion. A timeout was performed confirming the patient's name, medical record number, diagnosis, procedure performed, and laterality procedure. 2 g of Ancef was dosed. At this time fluoroscopy was used to localize the proximal and distal extent of the displaced subtrochanteric hip fracture. Once this was done a 15cm incision was made along the lateral aspect of the thigh. Subcutaneous tissue was dissected using Bovie down to the IT band. IT band was sharply incised. The vastus lateralis was split with a Miller. The fracture site was visualized with the use of bennet retractors. The fracture ends were cleaned. It was very difficult to visualize the medial spike to reduce the fracture. Numerous attempts to reduce the fracture was made using combination of clamps and traction rotation with the table. After obtaining sufficient visualization of the fracture reduction was obtained using a Loehman clamp. This was confirmed on fluoroscopy. A cable passer was carefully placed around the femur proximal to the [place] clamp. A Vila [employer] Nephew cable was passed through the cable passer. This was then tightened down. Fracture on fluoroscopy in both AP and lateral planes remained reduced. A second cable was passed around the fracture just distal to the clamp. This was also tightened. At this time the fracture was stable and well reduced. At this time our attention turned towards placing the intramedullary nail. Fluoroscopy was used to localize the tip of greater trochanter and obtain the longitudinal axis of the femur. A #10 blade was used to make a skin incision several centimeters proximal and posterior to the tip of the greater trochanter. IT band was sharply incised. Tip of the greater trochanter could be palpated. The guidepin was then placed on the tip of the greater trochanter. Placement was confirmed on both AP and lateral fluoroscopy. The pin was then driven down with a wire street flusher driver just past the lesser trochanter. Soft tissue guide was placed over the guidepin followed by the opening reamer. This was then removed. A ball-tipped guidewire with a bend was placed into the opening hole. The guide wire was confirmed to be in the femur on both AP and lateral films. It was placed in the center of the femur distally in both the AP and lateral planes. This was measured at approximately 345 mm, a 320 mm length nail was chosen. The canal was quite capacious began reaming with a 9 mm reamer and sequentially reamed up to a 12 mm reamer where there was appropriate chatter at the isthmus. Therefore a 10 x 320 mm nail with 125 degree angle was chosen. This was then placed over the guidewire until the proper depth was obtained in the guidewire was then pulled out. A small 2 cm incision was made over the location of the future lag screw. The lag screw sleeve was placed through the jig and a guidepin was placed center center in the femoral head which was confirmed on both AP and lateral fluoroscopy. The pin was driven to the subchondral bone. This measured 90 mm. Therefore reamed to 95 mm and placed 95 mm screw. The set screw was then tightened all the way down. The screw was center center in the femoral head on both AP and lateral films. Our attention turned distally where the distal targeter was used. Both dynamic and static interlocking screw holes were used. Appropriate drill was used to drill through these holes using perfect tribe technique followed by the appropriate length screws. All jigs and hardware was removed and final x-rays were obtained confirming good reduction of the fracture and positioning placement of the hardware. At this time all wounds were closely irrigated. The IT band was closed with #0 Vicryl in [id number] fashion followed by subcutaneous closure and colin for the skin. The lag screw and interlocking screw incisions were closed with 2-0 Vicryl and skin for colin. The dressings were covered with Mepilex dressing. All counts were correct x2 Disposition: Patient was awoken from anesthesia and transferred back in stable condition. Patient will partial weightbearing in the right lower extremity. Will receive Ancef 2 g for 24 hours postop. The patient will be on DVT prophylaxis, lovenox 40mg daily x6 weeks and SCDs while admitted. I would like to see the patient in clinic in 2 weeks. Implants Cat gamma cephalo-medullary nail size 10 x 320, 125 degree angle 95 mm lag screw 2 distal interlocking screws Vila [employer] Nephew cables x2 SHAN MCKEON MD Jan 22, 2019 20:34
[2019-01-23] VITALS (58 sets, daily range): BP systolic 89–148; BP diastolic 28–98; PULSE 18–97; RESP 12–31
[2019-01-23] MEDS: CEFAZOLIN 1 GM/50 ML (PMX) 50 ML IVPB SCH ×2 (03:08→14:43)
[2019-01-23] MEDS: PANTOPRAZOLE (EC) 40 MG TAB PO SCH (05:23)
[2019-01-23] MEDS: LEVOTHYROXINE 75 MCG TAB PO SCH (07:46)
[2019-01-23] MEDS: HYDROmorphONE 0.5 MG/0.5 ML SYG IV PRN (07:47)
[2019-01-23] MEDS ORDERED: SOD CHLORIDE 0.9% 250 ML IV* ONE (08:25)
[2019-01-23] MEDS: NIFEdipine (XL) 60 MG TAB PO SCH (08:34)
[2019-01-23] MEDS: DONEPEZIL 10 MG TAB PO SCH (08:34)
[2019-01-23] MEDS: ASPIRIN 81 MG TAB PO SCH (08:34)
--- NOTE | 2019-01-23 09:33 | PN ---
Date/Time of Note Date/Time of Note DATE: 01/23/19 TIME: 09:25 Assessment/Plan Lines/Catheters IV Catheter Type (from Nrsg): A Line Hernandez in Place (from Nrs): Yes Assessment/Plan Chief Complaint/Hosp Course POD#1 s/p open reduction internal fixation and intramedullary nail right subtrochanteric hip fracture. Patient is stable in the ICU. Her blood pressure improved overnight. She is no longer on any pressors. She is eating and awake. -Post op H&H: Acute on chronic anemia secondary to operative blood loss. Secondary to patient's cardiac history 1 unit of PRBCs was ordered to decrease ischemic demand -PT/OT. Posterior Hip Precautions -Joints pain control protocol -DVT prophylaxis: SCD's, Lovenox 40 mg daily x6 weeks -Weight bearing status: Partial weightbearing right lower extremity -Post-op XR ordered -Abx: 24h ancef -Diet: ADAT -Hernandez: Discontinue once patient mobilizes and is hemodynamically stable. -Discharge planning consult Discharge to acute rehab versus SNF Subjective 24 Hr Interval Summary Patient doing well No acute events overnight Pain is well controlled Exam/Review of Systems Vital Signs Vitals Vital Signs Date Temp Pulse Resp B/P (MAP) Pulse Ox O2 O2 Flow FiO2 Time Delivery Rate 01/23/19 90 14 103/45 08:30 (64) 01/23/19 98.2 96 Nasal 08:00 Cannula 01/23/19 2.0 08:00 01/21/19 21 22:12 Intake and Output 01/22/19 01/22/19 01/23/19 1515:00 23:00 07:00 IntakeIntake Total 4250 ml 230 ml 80 ml OutputOutput Total 1550 ml 315 ml 195 ml BalanceBalance 2700 ml -85 ml -115 ml Exam Free Text/Dictation Right lower extremity: Dressing: clean, dry, and intact, no erythema Sensation intact to light touch in a sural, saphenous, deep peroneal, superficial peroneal, medial and lateral plantar nerve distribution. Motor is intact, patient able to dorsiflex and plantarflex ankle and extend and flex great toe. Dorsalis Pedis pulse +2, Brisk capillary refill. Compartments are soft. Calves non-tender to palpation bilaterally. Results Result Diagram: 01/23/195 01/23/195 SHAN MCKEON MD Jan 23, 2019 09:33
[2019-01-23] MEDS ORDERED: NA POLYST SULFON 15 GM/60 ML BTL PO ONE (10:00)
[2019-01-23] MEDS ORDERED: POLYETHYLENE GLYCOL 17 GM PACKET PO ONE (12:00)
--- NOTE | 2019-01-23 13:17 | PN ---
Date/Time of Note Date/Time of Note DATE: 01/23/19 TIME: 13:13 Assessment/Plan VTE Prophylaxis Risk score (from Nsg)>0 risk: 23 SCD applied (from Nsg): Yes Pharmacological prophylaxis: LMWH Lines/Catheters IV Catheter Type (from Nrsg): A Line Urinary Cath still in place: Yes Reason Cath still needed: other (indicate) (not needed) Assessment/Plan Assessment/Plan 88 yo woman with history of CAD and CABG, CHF presents with R hip fracture # acute right hip fracture: - Hip x-ray: Acute, comminuted and mildly displaced spiral type fracture of the proximal femur in the subtrochanteric region with extension into the lesser trochanter. - s/p medullary pinning by Dr. Lara on 01/22. - PT, OT - Pain control - anticoagulation per ortho. Currently on lovenox. # mechanical fall: Patient denies any loss of consciousness or head trauma. # coronary artery disease: History of CABG. Previous echocardiogram in 2018 showed an ejection fraction of 40% with diastolic dysfunction. - Continue statin - Currently holding home BP meds; still slightly hypotensive after surgery. # hypertension: Holding nifedipine, spironolactone, metoprolol # Hyperlipidemia: Continue statin # dementia: Continue memantine # GERD: Continue omeprazole # DVT GI prophylaxis: SCDs, home PPI Result Diagram: 01/23/195 01/23/19444 Subjective 24 Hr Interval Summary Free Text/Dictation No acute overnight events. Exam/Review of Systems Exam Vitals Vital Signs Date Temp Pulse Resp B/P (MAP) Pulse Ox O2 O2 Flow FiO2 Time Delivery Rate 01/23/19 81 19 107/37 12:45 (60) 01/23/19 93 12:30 01/23/19 99.0 Nasal 2.0 12:00 Cannula 01/21/19 21 22:12 Intake and Output 01/22/19 01/22/19 01/23/19 1515:00 23:00 07:00 IntakeIntake Total 4250 ml 230 ml 80 ml OutputOutput Total 1550 ml 315 ml 225 ml BalanceBalance 2700 ml -85 ml -145 ml Exam General: Patient is currently lying in bed, comfortable appearing HEENT: Atraumatic, normocephalic. The pupils are equal, round and reactive. Extraocular motor are intact Neck: Supple with full range of motion. No rigidity or meningismus Chest: Nontender Lungs: Clear to auscultation bilaterally no crackles rales or wheezing Heart: Sinus bradycardia Abdomen: Soft , nontender, nondistended , bowel sounds are present. No guarding no rebound tenderness , No masses or organomegaly. No costovertebral temporal angle mass Extremities: Right hip: Dressing clean/dry/intact. Results Results 24hrs Laboratory Tests Test 01/22/19 14:16 01/23/19 04:45 White Blood Count 11.3 #H 9.4 Red Blood Count 3.15 L 2.84 L Hemoglobin 9.2 L 8.3 L Hematocrit 27.1 L 24.7 L Mean Corpuscular Volume 86.0 87.0 Mean Corpuscular Hemoglobin 29.2 29.2 Mean Corpuscular Hemoglobin Concent 33.9 33.6 Red Cell Distribution Width 13.5 14.6 H Platelet Count 93 #L 93 L Mean Platelet Volume 10.9 H 11.5 H Immature Granulocytes % 0.400 0.300 Neutrophils % 82.2 H 80.2 H Lymphocytes % 7.7 L 6.7 L Monocytes % 9.3 12.7 H Eosinophils % 0.2 0.0 Basophils % 0.2 0.1 Nucleated Red Blood Cells % 0.0 0.0 Immature Granulocytes # 0.040 H 0.030 Neutrophils # 9.3 H 7.5 Lymphocytes # 0.9 0.6 L Monocytes # 1.1 H 1.2 H Eosinophils # 0.0 0.0 Basophils # 0.0 0.0 Nucleated Red Blood Cells # 0.0 0.0 Sodium Level 138 140 Potassium Level 5.5 H 5.4 H Chloride Level 114 H 114 H Carbon Dioxide Level 19 L 19 L Anion Gap 5 7 Blood Urea Nitrogen 31 H 35 H Creatinine 1.06 H 1.39 H Est Glomerular Filtrat Rate mL/min Glucose Level 154 146 Calcium Level 7.0 L 7.3 L Magnesium Level 1.8 Total Bilirubin 0.4 Direct Bilirubin 0.00 Indirect Bilirubin 0.4 Aspartate Amino Transf (AST/SGOT) 32 Alanine Aminotransferase (ALT/SGPT) 25 Alkaline Phosphatase 31 L Total Protein 4.4 #L Albumin 2.4 #L Globulin 2.00 Albumin/Globulin Ratio 1.20 Medications Medication Current Medications IV Flush (NS 3 ml) 3 ml PER PROTOCOL IV ; Start 01/21/19 at 06:30 Acetaminophen/ Hydrocodone Bitart ([place] (5/325)) 1 tab Q6H PRN PO .MOD PAIN 4- 6 Last administered on 01/21/19at 07:21; Admin Dose 1 TAB; Start 01/21/19 at 06:30 Docusate Sodium (Colace) 100 mg Q12H PRN PO .CONSTIPATION; Start 01/21/19 at 06:30 Bisacodyl (Dulcolax) 5 mg DAILY PRN PO .CONSTIPATION; Start 01/21/19 at 06:30 Albuterol (Ventolin Hfa) 2 puff Q4H PRN INH WHEEZING AND SOB; Start 01/21/19 at 07:00 Donepezil HCl (Aricept) 10 mg DAILY PO Last administered on 01/23/19at 08:34; Admin Dose 10 MG; Start 01/21/19 at 09:00 Levothyroxine Sodium (Synthroid) 75 mcg AC BREAKFAST PO Last administered on 01/23/19at 07:46; Admin Dose 75 MCG; Start 01/21/19 at 08:00 Nifedipine (Procardia Xl) 60 mg DAILY PO ; Start 01/21/19 at 09:00 Pantoprazole (Protonix Tab) 40 mg DAILY@06 PO Last administered on 01/23/19at 05:23; Admin Dose 40 MG; Start 01/21/19 at 09:00 Atorvastatin Calcium (Lipitor) 40 mg DAILY@21 PO Last administered on 01/22/19at 19:48; Admin Dose 40 MG; Start 01/21/19 at 21:00 Aspirin (Aspirin) 81 mg DAILY PO Last administered on 01/23/19at 08:34; Admin Dose 81 MG; Start 01/21/19 at 11:30 Dextrose (D50w Syringe) ONCE PRN IV DECREASED GLUCOSE; Start 01/21/19 at 22:00 Acetaminophen/ Hydrocodone Bitart ([place] (5/325)) 1 tab Q4H PRN PO .PAIN 4-6; Start 01/22/19 at 12:30 Diphenhydramine HCl (Benadryl) 25 mg Q4H PRN IV .PRURITUS; Start 01/22/19 at 12:30 Ondansetron HCl (Zofran Inj) 4 mg Q6H PRN IV .NAUSEA/VOMITING; Start 01/22/19 at 12:30 Naloxone HCl (Narcan) 0.2 mg Q2M PRN IV .RESP RATE; Start 01/22/19 at 12:30 Miscellaneous Information (* Miscellaneous Pharmacy Order) FENTANYL: 20 MCG SPI... GIVEN NEURAXIAL XX ; Start 01/22/19 at 12:30 Acetaminophen (Tylenol Tab) 650 mg Q6H PRN PO .PAIN 1-3 OR TEMP; Start 01/22/19 at 13:30 Enoxaparin Sodium (Lovenox) 30 mg DAILY SC ; Start 01/24/19 at 09:00 Cefazolin Sodium 50 ml @ 100 mls/hr Q12H IVPB Last administered on 01/23/19at 03:08; Admin Dose 100 MLS/HR; Start 01/22/19 at 15:00; Stop 01/23/19 at 15:29 Hydromorphone HCl (Dilaudid) 0.5 mg Q2H PRN IV MODERATE PAIN LEVEL 4-6 Last administered on 01/23/19at 07:47; Admin Dose 0.5 MG; Start 01/22/19 at 20:30 MARY GARIBAY MD Jan 23, 2019 13:17
--- NOTE | 2019-01-23 14:34 | CONS ---
Assessment/Plan Assessment/Plan Hospital Course (Demo Recall) Mechanical fall Right femur fracture: s/p ORIF 01/22. Doing well Hyperkalemia: on aldactone at home but held and still high CAD s/p 3V CABG 2004 ischemic cardiomyopathy:EF 40%. Compensated on exam Paroxysmal afib: not on anticoagulation presumably for fall risk. Afib with slow response on admission. Now back in sinus LBBB HTN CKD advanced dementia -continue ASA -lipitor -hold metoprolol with bradycardic episodes -hold entresto and aldactone with hyperkalemia -hold nifedipine with borderline BP ok for tele Consultation Date/Type/Reason Admit Date/Time Jan 21, 2019 at 06:08 Initial Consult Date 01/21/19 Type of Consult Cardiology Requesting Provider: REYES MCNEILL Date/Time of Note DATE: 01/23/19 TIME: 14:32 24 HR Interval Summary Free Text/Dictation Did well post-op. Needed neosynephrine briefly in the OR so was transferred to the ICU but did not require pressors in the ICU. No complaints. No chest pain or SOB K 5.4 again today. Exam/Review of Systems Vital Signs Vitals Vital Signs Date Temp Pulse Resp B/P (MAP) Pulse Ox O2 O2 Flow FiO2 Time Delivery Rate 01/23/19 78 17 132/42 96 13:30 (72) 01/23/19 Nasal 13:00 Cannula 01/23/19 99.0 2.0 12:00 01/21/19 21 22:12 Intake and Output 01/22/19 01/22/19 01/23/19 1515:00 23:00 07:00 IntakeIntake Total 4250 ml 230 ml 80 ml OutputOutput Total 1550 ml 315 ml 225 ml BalanceBalance 2700 ml -85 ml -145 ml Exam Constitutional: alert, oriented Psych: no complaints, nl mood/affect Head: normocephalic, atraumatic Neck: No jvd Respiratory: diminished breath sounds; No clear to auscultation Cardiovascular: regular rate and rhythm; No edema, No systolic murmur Gastrointestinal: soft, non-tender; No distended Neurological: nl mental status, nl speech Labs Result Diagram: 01/23/195 01/23/19 0445 Results 24hrs Laboratory Tests Test 01/23/19 04:45 White Blood Count 9.4 Red Blood Count 2.84 L Hemoglobin 8.3 L Hematocrit 24.7 L Mean Corpuscular Volume 87.0 Mean Corpuscular Hemoglobin 29.2 Mean Corpuscular Hemoglobin Concent 33.6 Red Cell Distribution Width 14.6 H Platelet Count 93 L Mean Platelet Volume 11.5 H Immature Granulocytes % 0.300 Neutrophils % 80.2 H Lymphocytes % 6.7 L Monocytes % 12.7 H Eosinophils % 0.0 Basophils % 0.1 Nucleated Red Blood Cells % 0.0 Immature Granulocytes # 0.030 Neutrophils # 7.5 Lymphocytes # 0.6 L Monocytes # 1.2 H Eosinophils # 0.0 Basophils # 0.0 Nucleated Red Blood Cells # 0.0 Sodium Level 140 Potassium Level 5.4 H Chloride Level 114 H Carbon Dioxide Level 19 L Anion Gap 7 Blood Urea Nitrogen 35 H Creatinine 1.39 H Est Glomerular Filtrat Rate mL/min Glucose Level 146 Calcium Level 7.3 L Total Bilirubin 0.4 Direct Bilirubin 0.00 Indirect Bilirubin 0.4 Aspartate Amino Transf (AST/SGOT) 32 Alanine Aminotransferase (ALT/SGPT) 25 Alkaline Phosphatase 31 L Total Protein 4.4 #L Albumin 2.4 #L Globulin 2.00 Albumin/Globulin Ratio 1.20 Medications Medications Current Medications IV Flush (NS 3 ml) 3 ml PER PROTOCOL IV ; Start 01/21/19 at 06:30 Acetaminophen/ Hydrocodone Bitart ([place] (5/325)) 1 tab Q6H PRN PO .MOD PAIN 4- 6 Last administered on 01/21/19at 07:21; Admin Dose 1 TAB; Start 01/21/19 at 06:30 Docusate Sodium (Colace) 100 mg Q12H PRN PO .CONSTIPATION; Start 01/21/19 at 06:30 Bisacodyl (Dulcolax) 5 mg DAILY PRN PO .CONSTIPATION; Start 01/21/19 at 06:30 Albuterol (Ventolin Hfa) 2 puff Q4H PRN INH WHEEZING AND SOB; Start 01/21/19 at 07:00 Donepezil HCl (Aricept) 10 mg DAILY PO Last administered on 01/23/19at 08:34; Admin Dose 10 MG; Start 01/21/19 at 09:00 Levothyroxine Sodium (Synthroid) 75 mcg AC BREAKFAST PO Last administered on 01/23/19at 07:46; Admin Dose 75 MCG; Start 01/21/19 at 08:00 Nifedipine (Procardia Xl) 60 mg DAILY PO ; Start 01/21/19 at 09:00 Pantoprazole (Protonix Tab) 40 mg DAILY@06 PO Last administered on 01/23/19at 05:23; Admin Dose 40 MG; Start 01/21/19 at 09:00 Atorvastatin Calcium (Lipitor) 40 mg DAILY@21 PO Last administered on 01/22/19at 19:48; Admin Dose 40 MG; Start 01/21/19 at 21:00 Aspirin (Aspirin) 81 mg DAILY PO Last administered on 01/23/19at 08:34; Admin Dose 81 MG; Start 01/21/19 at 11:30 Dextrose (D50w Syringe) ONCE PRN IV DECREASED GLUCOSE; Start 01/21/19 at 22:00 Acetaminophen/ Hydrocodone Bitart ([place] (5/325)) 1 tab Q4H PRN PO .PAIN 4-6; Start 01/22/19 at 12:30 Diphenhydramine HCl (Benadryl) 25 mg Q4H PRN IV .PRURITUS; Start 01/22/19 at 12:30 Ondansetron HCl (Zofran Inj) 4 mg Q6H PRN IV .NAUSEA/VOMITING; Start 01/22/19 at 12:30 Naloxone HCl (Narcan) 0.2 mg Q2M PRN IV .RESP RATE; Start 01/22/19 at 12:30 Miscellaneous Information (* Miscellaneous Pharmacy Order) FENTANYL: 20 MCG SPI... GIVEN NEURAXIAL XX ; Start 01/22/19 at 12:30 Acetaminophen (Tylenol Tab) 650 mg Q6H PRN PO .PAIN 1-3 OR TEMP; Start 01/22/19 at 13:30 Enoxaparin Sodium (Lovenox) 30 mg DAILY SC ; Start 01/24/19 at 09:00 Cefazolin Sodium 50 ml @ 100 mls/hr Q12H IVPB Last administered on 01/23/19at 03:08; Admin Dose 100 MLS/HR; Start 01/22/19 at 15:00; Stop 01/23/19 at 15:29 Hydromorphone HCl (Dilaudid) 0.5 mg Q2H PRN IV MODERATE PAIN LEVEL 4-6 Last administered on 01/23/19at 07:47; Admin Dose 0.5 MG; Start 01/22/19 at 20:30 BARB SHIRLEY Jan 23, 2019 14:34
--- NOTE | 2019-01-23 15:20 | OPPN ---
Date/Time of Note Date/Time of Note DATE: 01/23/19 TIME: 15:18 Anesthesia Follow up Anesthesia Follow up Last documented vital signs Vital Signs Date Temp Pulse Resp B/P (MAP) Pulse Ox O2 O2 Flow FiO2 Time Delivery Rate 01/23/19 78 17 132/42 96 13:30 (72) 01/23/19 Nasal 13:00 Cannula 01/23/19 99.0 2.0 12:00 01/21/19 21 22:12 Respiratory function: WNL Cardiovascular function: WNL Comments s/p ORIF of Right Hip, she is in ICU avake alert oriented, pain is well controlled, moving all extremities, v/s stable afebrile. HB dropped to 8.3, one unit PRBC will be transfused. will be followed up by the primary team. OSCAR CHAVARRIA MD Jan 23, 2019 15:20
[2019-01-23] MEDS: ATORVASTATIN 40 MG TAB PO SCH (21:59)
[2019-01-24 04:07] VITALS: BP 113/51; PULSE 94; RESP 18
[2019-01-24] MEDS: PANTOPRAZOLE (EC) 40 MG TAB PO SCH (06:37)
[2019-01-24] MEDS: LEVOTHYROXINE 75 MCG TAB PO SCH (06:37)
[2019-01-24 07:16] VITALS: BP 118/56; PULSE 87; RESP 18
[2019-01-24] MEDS: ASPIRIN 81 MG TAB PO SCH (09:21)
[2019-01-24] MEDS: DONEPEZIL 10 MG TAB PO SCH (09:21)
[2019-01-24] MEDS: HYDROmorphONE 0.5 MG/0.5 ML SYG IV PRN ×3 (09:22→22:22)
[2019-01-24] MEDS: ENOXAPARIN 30 MG/0.3 ML SYG SC SCH (09:30)
--- NOTE | 2019-01-24 10:02 | CONS ---
Assessment/Plan Assessment/Plan Hospital Course (Demo Recall) Mechanical fall Right femur fracture: s/p ORIF 01/22. Doing well Hyperkalemia: on aldactone at home but held and still high CAD s/p 3V CABG 2004 ischemic cardiomyopathy:EF 40%. Compensated on exam Paroxysmal afib: not on anticoagulation presumably for fall risk. Afib with slow response on admission. In and out of controlled afib LBBB HTN CKD advanced dementia -continue ASA -lipitor -hold metoprolol with bradycardic episodes -hold entresto and aldactone with hyperkalemia/hypotension -hold nifedipine with borderline BP Consultation Date/Type/Reason Admit Date/Time Jan 21, 2019 at 06:08 Initial Consult Date 01/21/19 Type of Consult Cardiology Requesting Provider: REYES MCNEILL Date/Time of Note DATE: 01/24/19 TIME: 10:01 24 HR Interval Summary Free Text/Dictation No events. Complaining of pain at surgical site Exam/Review of Systems Vital Signs Vitals Vital Signs Date Temp Pulse Resp B/P (MAP) Pulse Ox O2 O2 Flow FiO2 Time Delivery Rate 01/24/19 98.0 87 18 118/56 99 Nasal 07:16 (76) Cannula 01/24/19 3.0 32 02:13 Intake and Output 01/23/19 01/23/19 01/24/19 1515:00 23:00 07:00 IntakeIntake Total 1190 ml 590 ml OutputOutput Total 230 ml BalanceBalance 960 ml 590 ml Exam Constitutional: alert, oriented Psych: nl mood/affect; No no complaints Head: normocephalic, atraumatic Neck: No jvd Respiratory: diminished breath sounds; No clear to auscultation Cardiovascular: No regular rate and rhythm, No edema Gastrointestinal: soft, non-tender; No distended Neurological: nl mental status, nl speech Labs Result Diagram: 01/24/19 0630 01/24/19 0630 Results 24hrs Laboratory Tests Test 01/24/19 06:30 White Blood Count 8.3 Red Blood Count 2.85 L Hemoglobin 8.4 L Hematocrit 24.8 L Mean Corpuscular Volume 87.0 Mean Corpuscular Hemoglobin 29.5 Mean Corpuscular Hemoglobin Concent 33.9 Red Cell Distribution Width 14.4 Platelet Count 93 L Mean Platelet Volume 11.7 H Immature Granulocytes % 0.400 Neutrophils % 74.0 Lymphocytes % 13.1 L Monocytes % 11.9 H Eosinophils % 0.5 Basophils % 0.1 Nucleated Red Blood Cells % 0.0 Immature Granulocytes # 0.030 Neutrophils # 6.2 Lymphocytes # 1.1 Monocytes # 1.0 H Eosinophils # 0.0 Basophils # 0.0 Nucleated Red Blood Cells # 0.0 Sodium Level 141 Potassium Level 4.4 Chloride Level 112 H Carbon Dioxide Level 23 Anion Gap 6 Blood Urea Nitrogen 28 H Creatinine 0.99 Est Glomerular Filtrat Rate mL/min Glucose Level 115 Calcium Level 7.5 L Phosphorus Level 2.3 L Magnesium Level 1.9 Total Bilirubin 0.6 Direct Bilirubin 0.00 Indirect Bilirubin 0.6 Aspartate Amino Transf (AST/SGOT) 37 Alanine Aminotransferase (ALT/SGPT) 28 Alkaline Phosphatase 35 L Total Protein 4.2 L Albumin 2.2 L Globulin 2.00 Albumin/Globulin Ratio 1.10 Medications Medications Current Medications IV Flush (NS 3 ml) 3 ml PER PROTOCOL IV ; Start 01/21/19 at 06:30 Acetaminophen/ Hydrocodone Bitart ([place] (5/325)) 1 tab Q6H PRN PO .MOD PAIN 4- 6 Last administered on 01/21/19at 07:21; Admin Dose 1 TAB; Start 01/21/19 at 06:30 Docusate Sodium (Colace) 100 mg Q12H PRN PO .CONSTIPATION; Start 01/21/19 at 06:30 Bisacodyl (Dulcolax) 5 mg DAILY PRN PO .CONSTIPATION; Start 01/21/19 at 06:30 Albuterol (Ventolin Hfa) 2 puff Q4H PRN INH WHEEZING AND SOB; Start 01/21/19 at 07:00 Donepezil HCl (Aricept) 10 mg DAILY PO Last administered on 01/24/19at 09:21; Admin Dose 10 MG; Start 01/21/19 at 09:00 Levothyroxine Sodium (Synthroid) 75 mcg AC BREAKFAST PO Last administered on 01/24/19at 06:37; Admin Dose 75 MCG; Start 01/21/19 at 08:00 Pantoprazole (Protonix Tab) 40 mg DAILY@06 PO Last administered on 01/24/19at 06:37; Admin Dose 40 MG; Start 01/21/19 at 09:00 Atorvastatin Calcium (Lipitor) 40 mg DAILY@21 PO Last administered on 01/23/19 21:59; Admin Dose 40 MG; Start 01/21/19 at 21:00 Aspirin (Aspirin) 81 mg DAILY PO Last administered on 01/24/19 09:21; Admin Dose 81 MG; Start 01/21/19 at 11:30 Dextrose (D50w Syringe) ONCE PRN IV DECREASED GLUCOSE; Start 01/21/19 at 22:00 Acetaminophen/ Hydrocodone Bitart ([place] (5/325)) 1 tab Q4H PRN PO .PAIN 4-6; Start 01/22/19 at 12:30 Diphenhydramine HCl (Benadryl) 25 mg Q4H PRN IV .PRURITUS; Start 01/22/19 at 12:30 Ondansetron HCl (Zofran Inj) 4 mg Q6H PRN IV .NAUSEA/VOMITING Last administered on 01/24/19 09:22; Admin Dose 4 MG; Start 01/22/19 at 12:30 Naloxone HCl (Narcan) 0.2 mg Q2M PRN IV .RESP RATE; Start 01/22/19 at 12:30 Miscellaneous Information (* Miscellaneous Pharmacy Order) FENTANYL: 20 MCG SPI... GIVEN NEURAXIAL XX ; Start 01/22/19 at 12:30 Acetaminophen (Tylenol Tab) 650 mg Q6H PRN PO .PAIN 1-3 OR TEMP; Start 01/22/19 at 13:30 Enoxaparin Sodium (Lovenox) 30 mg DAILY SC Last administered on 01/24/19at 09:30; Admin Dose 30 MG; Start 01/24/19 at 09:00 Hydromorphone HCl (Dilaudid) 0.5 mg Q2H PRN IV MODERATE PAIN LEVEL 4-6 Last administered on 01/24/19 09:22; Admin Dose 0.5 MG; Start 01/22/19 at 20:30 BARB SHIRLEY Jan 24, 2019 10:02
--- NOTE | 2019-01-24 10:35 | PN ---
Date/Time of Note Date/Time of Note DATE: 01/24/19 TIME: 10:33 Assessment/Plan Lines/Catheters IV Catheter Type (from Nrsg): Central Line Hernandez in Place (from Nrsg): No Assessment/Plan Chief Complaint/Hosp Course POD#2 s/p open reduction internal fixation and intramedullary nail right subtrochanteric hip fracture. Patient was transferred to telemetry out of the ICU. -Post op H&H: Acute on chronic anemia secondary to operative blood loss. Continue to monitor -PT/OT. -Joints pain control protocol -DVT prophylaxis: SCD's, Lovenox 40 mg daily x6 weeks -Weight bearing status: Partial weightbearing right lower extremity -Post-op XR ordered -Abx: 24h ancef -Diet: ADAT -Hernandez: Discontinue once patient mobilizes and is hemodynamically stable. -Discharge planning consult Discharge to acute rehab versus SNF Subjective 24 Hr Interval Summary Patient doing well No acute events overnight Pain is moderately controlled Exam/Review of Systems Vital Signs Vitals Vital Signs Date Temp Pulse Resp B/P (MAP) Pulse Ox O2 O2 Flow FiO2 Time Delivery Rate 01/24/19 98.0 87 18 118/56 99 Nasal 07:16 (76) Cannula 01/24/19 3.0 32 02:13 Intake and Output 01/23/19 01/23/19 01/24/19 1515:00 23:00 07:00 IntakeIntake Total 1190 ml 590 ml OutputOutput Total 230 ml BalanceBalance 960 ml 590 ml Exam Free Text/Dictation Right lower extremity: Dressing: clean, dry, and intact, no erythema Sensation intact to light touch in a sural, saphenous, deep peroneal, superficial peroneal, medial and lateral plantar nerve distribution. Motor is intact, patient able to dorsiflex and plantarflex ankle and extend and flex great toe. Dorsalis Pedis pulse +2, Brisk capillary refill. Compartments are soft. Calves non-tender to palpation bilaterally. Results Result Diagram: 01/24/1962901/24/19629 SHAN MCKEON MD Jan 24, 2019 10:35
[2019-01-24 11:09] VITALS: BP 106/51; PULSE 87; RESP 18
--- NOTE | 2019-01-24 13:04 | PN ---
Date/Time of Note Date/Time of Note DATE: 01/24/19 TIME: 13:00 Assessment/Plan VTE Prophylaxis Risk score (from Ns)>0 risk: 13 SCD applied (from Nsg): Yes Pharmacological prophylaxis: LMWH Lines/Catheters IV Catheter Type (from Nrsg): Central Line Central line still needed: Yes Urinary Cath still in place: No Assessment/Plan Hospital Course S: Patient tolerating diet, seen by orthopedic surgery team earlier today. No acute events overnight. O: VS -see below PE: General: Patient is currently lying in bed, daughter at bedside HEENT: Atraumatic, normocephalic. The pupils are equal, round and reactive. Extraocular motor are intact Neck: Supple with full range of motion. No rigidity or meningismus Chest: Nontender Lungs: Clear to auscultation bilaterally no crackles rales or wheezing Heart: Sinus bradycardia Abdomen: Soft , nontender, nondistended , bowel sounds are present. No guarding no rebound tenderness , Extremities: Right hip: Dressing clean/dry/intact. Assessment/Plan: 88 yo woman with history of CAD and CABG, CHF presents with R hip fracture # acute right hip fracture-apparently occurred after mechanical fall: Hip x-ray: Acute, comminuted and mildly displaced spiral type fracture of the proximal femur in the subtrochanteric region with extension into the lesser trochanter- s/p medullary pinning by Dr. Lara on 01/22. -Continue PT, OT, Pain control - anticoagulation per ortho. Currently on lovenox. # coronary artery disease: History of CABG. Previous echocardiogram in 2018 showed an ejection fraction of 40% with diastolic dysfunction. - Continue statin - Currently holding home BP meds as patient was slightly hypotensive after surgery, monitor for now # hypertension: Again, for now holding nifedipine, spironolactone, metoprolol # Hyperlipidemia: Continue statin # dementia: Continue memantine # GERD: Continue omeprazole # DVT GI prophylaxis: SCDs, home PPI Dispo: Likely to ARU versus SNF once formal eval's have been performed Result Diagram: 01/24/19 0630 01/24/19 0630 Results 24hrs Laboratory Tests Test 01/24/19 06:30 White Blood Count 8.3 Red Blood Count 2.85 L Hemoglobin 8.4 L Hematocrit 24.8 L Mean Corpuscular Volume 87.0 Mean Corpuscular Hemoglobin 29.5 Mean Corpuscular Hemoglobin Concent 33.9 Red Cell Distribution Width 14.4 Platelet Count 93 L Mean Platelet Volume 11.7 H Immature Granulocytes % 0.400 Neutrophils % 74.0 Lymphocytes % 13.1 L Monocytes % 11.9 H Eosinophils % 0.5 Basophils % 0.1 Nucleated Red Blood Cells % 0.0 Immature Granulocytes # 0.030 Neutrophils # 6.2 Lymphocytes # 1.1 Monocytes # 1.0 H Eosinophils # 0.0 Basophils # 0.0 Nucleated Red Blood Cells # 0.0 Sodium Level 141 Potassium Level 4.4 Chloride Level 112 H Carbon Dioxide Level 23 Anion Gap 6 Blood Urea Nitrogen 28 H Creatinine 0.99 Est Glomerular Filtrat Rate mL/min Glucose Level 115 Calcium Level 7.5 L Phosphorus Level 2.3 L Magnesium Level 1.9 Total Bilirubin 0.6 Direct Bilirubin 0.00 Indirect Bilirubin 0.6 Aspartate Amino Transf (AST/SGOT) 37 Alanine Aminotransferase (ALT/SGPT) 28 Alkaline Phosphatase 35 L Total Protein 4.2 L Albumin 2.2 L Globulin 2.00 Albumin/Globulin Ratio 1.10 Exam/Review of Systems Exam Vitals Vital Signs Date Temp Pulse Resp B/P (MAP) Pulse Ox O2 O2 Flow FiO2 Time Delivery Rate 01/24/19 98.3 87 18 106/51 98 Nasal 11:09 (69) Cannula 01/24/19 3.0 32 02:13 Intake and Output 01/23/19 01/23/19 01/24/19 1515:00 23:00 07:00 IntakeIntake Total 1190 ml 590 ml OutputOutput Total 230 ml BalanceBalance 960 ml 590 ml Results Results 24hrs Laboratory Tests Test 01/24/19 06:30 White Blood Count 8.3 Red Blood Count 2.85 L Hemoglobin 8.4 L Hematocrit 24.8 L Mean Corpuscular Volume 87.0 Mean Corpuscular Hemoglobin 29.5 Mean Corpuscular Hemoglobin Concent 33.9 Red Cell Distribution Width 14.4 Platelet Count 93 L Mean Platelet Volume 11.7 H Immature Granulocytes % 0.400 Neutrophils % 74.0 Lymphocytes % 13.1 L Monocytes % 11.9 H Eosinophils % 0.5 Basophils % 0.1 Nucleated Red Blood Cells % 0.0 Immature Granulocytes # 0.030 Neutrophils # 6.2 Lymphocytes # 1.1 Monocytes # 1.0 H Eosinophils # 0.0 Basophils # 0.0 Nucleated Red Blood Cells # 0.0 Sodium Level 141 Potassium Level 4.4 Chloride Level 112 H Carbon Dioxide Level 23 Anion Gap 6 Blood Urea Nitrogen 28 H Creatinine 0.99 Est Glomerular Filtrat Rate mL/min Glucose Level 115 Calcium Level 7.5 L Phosphorus Level 2.3 L Magnesium Level 1.9 Total Bilirubin 0.6 Direct Bilirubin 0.00 Indirect Bilirubin 0.6 Aspartate Amino Transf (AST/SGOT) 37 Alanine Aminotransferase (ALT/SGPT) 28 Alkaline Phosphatase 35 L Total Protein 4.2 L Albumin 2.2 L Globulin 2.00 Albumin/Globulin Ratio 1.10 Medications Medication Current Medications IV Flush (NS 3 ml) 3 ml PER PROTOCOL IV ; Start 01/21/19 at 06:30 Acetaminophen/ Hydrocodone Bitart ([place] (5/325)) 1 tab Q6H PRN PO .MOD PAIN 4- 6 Last administered on 01/21/19at 07:21; Admin Dose 1 TAB; Start 01/21/19 at 06:30 Docusate Sodium (Colace) 100 mg Q12H PRN PO .CONSTIPATION; Start 01/21/19 at 06:30 Bisacodyl (Dulcolax) 5 mg DAILY PRN PO .CONSTIPATION; Start 01/21/19 at 06:30 Albuterol (Ventolin Hfa) 2 puff Q4H PRN INH WHEEZING AND SOB; Start 01/21/19 at 07:00 Donepezil HCl (Aricept) 10 mg DAILY PO Last administered on 01/24/19 09:21; Admin Dose 10 MG; Start 01/21/19 at 09:00 Levothyroxine Sodium (Synthroid) 75 mcg AC BREAKFAST PO Last administered on 01/24/19at 06:37; Admin Dose 75 MCG; Start 01/21/19 at 08:00 Pantoprazole (Protonix Tab) 40 mg DAILY@06 PO Last administered on 01/24/19 06:37; Admin Dose 40 MG; Start 01/21/19 at 09:00 Atorvastatin Calcium (Lipitor) 40 mg DAILY@21 PO Last administered on 01/23/19at 21:59; Admin Dose 40 MG; Start 01/21/19 at 21:00 Aspirin (Aspirin) 81 mg DAILY PO Last administered on 01/24/19 09:21; Admin Dose 81 MG; Start 01/21/19 at 11:30 Dextrose (D50w Syringe) ONCE PRN IV DECREASED GLUCOSE; Start 01/21/19 at 22:00 Acetaminophen/ Hydrocodone Bitart ([place] (5/325)) 1 tab Q4H PRN PO .PAIN 4-6; Start 01/22/19 at 12:30 Diphenhydramine HCl (Benadryl) 25 mg Q4H PRN IV .PRURITUS Last administered on 01/24/19 12:10; Admin Dose 25 MG; Start 01/22/19 at 12:30 Ondansetron HCl (Zofran Inj) 4 mg Q6H PRN IV .NAUSEA/VOMITING Last administered on 01/24/19 09:22; Admin Dose 4 MG; Start 01/22/19 at 12:30 Naloxone HCl (Narcan) 0.2 mg Q2M PRN IV .RESP RATE; Start 01/22/19 at 12:30 Miscellaneous Information (* Miscellaneous Pharmacy Order) FENTANYL: 20 MCG SPI... GIVEN NEURAXIAL XX ; Start 01/22/19 at 12:30 Acetaminophen (Tylenol Tab) 650 mg Q6H PRN PO .PAIN 1-3 OR TEMP Last administered on 01/24/19 12:11; Admin Dose 650 MG; Start 01/22/19 at 13:30 Enoxaparin Sodium (Lovenox) 30 mg DAILY SC Last administered on 01/24/19 09:30; Admin Dose 30 MG; Start 01/24/19 at 09:00 Hydromorphone HCl (Dilaudid) 0.5 mg Q2H PRN IV MODERATE PAIN LEVEL 4-6 Last administered on 01/24/19 09:22; Admin Dose 0.5 MG; Start 01/22/19 at 20:30 CAROL AN Jan 24, 2019 13:04
[2019-01-24 15:02] VITALS: BP 115/58; PULSE 83; RESP 18
--- NOTE | 2019-01-24 17:05 | PDOCDIS ---
Discharge Instructions CONDITION [id number] Patient Condition: [id number] Stable CAROL AN Jan 24, 2019 17:05
--- NOTE | 2019-01-24 17:09 | DS ---
Date/Time of Note Date/Time of Note DATE: 01/24/19 TIME: 17:06 Discharge Summary Admission/Discharge Info Admit Date/Time Jan 21, 2019 at 06:08 Discharge Date/Time Discharge Diagnosis # acute right hip fracture-apparently occurred after mechanical fall: Hip x-ray: Acute, comminuted and mildly displaced spiral type fracture of the proximal femur in the subtrochanteric region with extension into the lesser trochanter- s/p medullary pinning by Dr. Lara on 01/22. # coronary artery disease: History of CABG. # hypertension # Hyperlipidemia # dementia # GERD Patient Condition: Stable Procedures Date/Time of Note Date/Time of Note DATE: 01/22/19 TIME: 20:24 Operative Report Procedure Date: Jan 22, 2019 Preoperative Diagnosis Right displaced subtrochanteric hip fracture Postoperative Diagnosis As above Operation/Procedure Performed Open reduction internal fixation right subtrochanteric hip fracture and intramedullary nail of right subtrochanteric hip fracture Modifier 22 secondary to significant increase in complexity which resulted in 50% increase time and effort. Hx of Present Illness 88-year-old female with a past medical history of hypertension, hyperlipidemia, coronary artery disease status post CABG, atrial fibrillation, COPD, hypothyroidism, dementia who presented to the emergency department complaining of right hip pain after mechanical fall at home. Patient was brought in via ambulance. Her daughter is her at the bedside. The patient articulates that she was in the bathroom and trying to get up when she fell over. She denies any head trauma or loss of consciousness. The daughter went with her to help assist her but she was unable to stand up. Ambulance was called. Patient's right lower extremity was noted to be externally rotated and shortened. Her pulses are intact bilaterally, her skin is warm to touch. She is able to who is presenting with right hip pain after a mechanical ground-level fall. The patient's right leg is externally rotated and shortened. She does report pain in the right hip. Her daughters do state that she ambulates with a walker. She at times does feel short of breath when she walks. She has a shop mechanic as an outpatient Dr. Worley. Hospital Course Patient was admitted and seen by physical therapy, orthopedic surgery, and cardiology teams during the hospital stay. Again she was found with acute right hip fracture. She underwent surgical operative repair of this fracture. She tolerated the procedure well. She was cautiously continued on some of her cardiac medications. Over the course of her hospital stay she worked with physical therapy as well. Her vital signs are stable on day of discharge, she was able to tolerate diet. After getting clearance from the philatelic consultant teams she will be discharged to acute rehab unit and current condition to continue acute rehab. See printed medicine reconciliation sheet for full list of discharge medications. Home Meds Active Scripts Nifedipine* (Nifedipine ER*) 60 Mg Tablet.sa, 60 MG PO DAILY, #30 TAB.SA Prov:TYRELCHANOAshokBRIDGET BEDSPREAD CUTTER HAND 11/23/17 Reported Medications Solifenacin* (Vesicare*) 5 Mg Tablet, 5 MG PO DAILY, TAB 01/21/19 Spironolactone* (Aldactone*) 25 Mg Tablet, 25 MG PO BID, #60 TAB 01/21/19 Sacubitril/Valsartan (Entresto 24 mg-26 mg Tablet) 1 Each Tablet, 1 EACH PO BID, TAB 01/21/19 Memantine* (Namenda*) 10 Mg Tablet, 10 MG PO BID, #60 TAB 01/21/19 Metoprolol Succinate* (Toprol XL*) 50 Mg Tab.er.24h, 50 MG PO DAILY, #30 TAB 01/21/19 Furosemide* (Lasix*) 40 Mg Tablet, 40 MG PO BID, TAB 01/21/19 Clonidine Hcl* (Clonidine Hcl*) 0.3 Mg Tablet, 0.3 MG PO DAILY PRN for ELEVATED BLOOD PRESSURE, TAB 01/21/19 Aspirin (Low Dose Aspirin) 81 Mg Tablet.dr, 81 MG PO DAILY, #30 TAB 01/21/19 Esomeprazole Magnesium (Esomeprazole Magnesium) 40 Mg Capsule.dr, 40 MG PO BEFORE BREAKFAST, #30 CAP 11/17/17 Rosuvastatin Calcium* (Crestor*) 10 Mg Tablet, 10 MG PO QHS, #30 TAB 11/17/17 Albuterol Sulfate* (Ventolin HFA*) 18 Gm Hfa.aer.ad, 2 PUFF INHALATION Q4H PRN for WHEEZING AND SOB, #1 INHALER 11/17/17 Donepezil* (Donepezil*) 10 Mg Tablet, 10 MG PO DAILY, #30 TAB 11/17/17 Levothyroxine Sodium* (Levothyroxine Sodium*) 75 Mcg Tablet, 75 MG PO AC BREAKFAST, #30 4/24/18 Discontinued Reported Medications Solifenacin* (Vesicare*) 5 Mg Tablet, 5 MG PO DAILY, TAB 11/17/17 Ropinirole Hcl* (Ropinirole Hcl*) 0.5 Mg Tablet, 0.5 MG PO HS, TAB 11/17/17 Benzonatate* (Tessalon Perle*) 100 Mg Capsule, 100 MG PO Q8H PRN for COUGH, CAP 11/17/17 Calcium Carbonate ([id number]) 500 Mg Tablet, 500 MG PO BID, TAB 11/17/17 Aspirin* (Aspirin* Chew) 81 Mg Tab.chew, 81 MG PO DAILY, TAB.CHEW 11/17/17 Discontinued Scripts Clonidine Hcl* (Clonidine Hcl*) 0.1 Mg Tab, 0.1 MG PO DAILY, #30 TAB Prov:BRIDGET CHAN [employer] 11/24/17 Metoprolol Succinate* (Toprol XL*) 25 Mg Tab.sr.24h, 12.5 MG PO DAILY, #30 TAB Prov:BRIDGET CHAN [employer] 11/23/17 Fluconazole* (Fluconazole*) 200 Mg Tablet, 200 MG PO DAILY, #5 TAB Prov:BRIDGET CHAN [employer] 11/23/17 Oseltamivir Phosphate* (Tamiflu*) 30 Mg Capsule, 30 MG PO BID, #4 CAP Prov:BRIDGET CHAN [employer] 11/23/17 Donepezil* (Donepezil*) 10 Mg Tablet, 10 MG PO DAILY, #30 TAB Prov:BRIDGET CHAN [employer] 11/23/17 Primary Care Provider Not On Staff Doctor Pending Labs Laboratory Tests Test 01/24/19 06:30 White Blood Count 8.3 10^3/ul (4.8-10.8) Red Blood Count 2.85 10^6/ul (4.20-5.40) Hemoglobin 8.4 g/dl (12.0-16.0) Hematocrit 24.8 % (37.0-47.0) Mean Corpuscular Volume 87.0 fl (82.0-101.0) Mean Corpuscular Hemoglobin 29.5 pg (29.0-33.0) Mean Corpuscular Hemoglobin Concent 33.9 g/dl (32.0-37.0) Red Cell Distribution Width 14.4 % (11.5-14.5) Platelet Count 93 10^3/UL (140-415) Mean Platelet Volume 11.7 fl (7.4-10.4) Immature Granulocytes % 0.400 % (0.001-0.429) Neutrophils % 74.0 % (39.0-77.0) Lymphocytes % 13.1 % (15.0-51.0) Monocytes % 11.9 % (0.0-11.0) Eosinophils % 0.5 % (0.0-7.0) Basophils % 0.1 % (0.0-2.0) Nucleated Red Blood Cells % 0.0 /100WBC (0.0-0.0) Immature Granulocytes # 0.030 10^3/ul (0.0-0.031) Neutrophils # 6.2 10^3/ul (1.6-7.5) Lymphocytes # 1.1 10^3/ul (0.8-2.9) Monocytes # 1.0 10^3/ul (0.3-0.9) Eosinophils # 0.0 10^3/ul (0.0-0.5) Basophils # 0.0 10^3/ul (0.0-0.1) Nucleated Red Blood Cells # 0.0 10^3/ul (0.0-0.0) Sodium Level 141 mmol/L (135-144) Potassium Level 4.4 mmol/L (3.5-5.1) Chloride Level 112 mmol/L (97-110) Carbon Dioxide Level 23 mmol/L (21-31) Anion Gap 6 (5-13) Blood Urea Nitrogen 28 mg/dl (7-20) Creatinine 0.99 mg/dl (0.44-1.00) Est Glomerular Filtrat Rate mL/min mL/min (>60) Glucose Level 115 mg/dl (70-220) Calcium Level 7.5 mg/dl (8.4-10.2) Phosphorus Level 2.3 mg/dl (2.5-4.9) Magnesium Level 1.9 mg/dl (1.7-2.5) Total Bilirubin 0.6 mg/dl (0.2-1.3) Direct Bilirubin 0.00 mg/dl (0.00-0.20) Indirect Bilirubin 0.6 mg/dl (0-1.1) Aspartate Amino Transf (AST/SGOT) 37 IU/L (15-46) Alanine Aminotransferase (ALT/SGPT) 28 IU/L (13-69) Alkaline Phosphatase 35 IU/L (42-121) Total Protein 4.2 g/dl (6.1-8.1) Albumin 2.2 g/dl (3.3-4.9) Globulin 2.00 g/dl (1.3-3.2) Albumin/Globulin Ratio 1.10 CAROL AN Jan 24, 2019 17:08
[2019-01-24 19:52] VITALS: BP 122/57; PULSE 88; RESP 18
[2019-01-24] MEDS: ATORVASTATIN 40 MG TAB PO SCH (22:00)
[2019-01-25 00:31] VITALS: BP 115/56; PULSE 89; RESP 18
[2019-01-25 04:15] VITALS: BP 112/53; PULSE 69; RESP 18
[2019-01-25] MEDS: PANTOPRAZOLE (EC) 40 MG TAB PO SCH (05:48)
[2019-01-25 07:28] VITALS: BP 100/55; PULSE 80; RESP 18
[2019-01-25] MEDS: LEVOTHYROXINE 75 MCG TAB PO SCH (08:26)
[2019-01-25] MEDS: ASPIRIN 81 MG TAB PO SCH (08:26)
[2019-01-25] MEDS: DONEPEZIL 10 MG TAB PO SCH (08:26)
--- NOTE | 2019-01-25 08:27 | CONS ---
Assessment/Plan Assessment/Plan Hospital Course (Demo Recall) Mechanical fall Right femur fracture: s/p ORIF 01/22. Doing well Hyperkalemia: on aldactone at home. Resolved CAD s/p 3V CABG 2004 ischemic cardiomyopathy:EF 40%. Compensated on exam Paroxysmal afib: not on anticoagulation presumably for fall risk. Afib with slow response on admission. In and out of controlled afib LBBB HTN CKD: possibly acute as now normalized advanced dementia -continue ASA -lipitor -hold metoprolol with bradycardic episodes -hold entresto and aldactone with hyperkalemia/hypotension -hold nifedipine with borderline BP Consultation Date/Type/Reason Admit Date/Time Jan 21, 2019 at 06:08 Initial Consult Date 01/21/19 Type of Consult Cardiology Requesting Provider: REYES MCNEILL Date/Time of Note DATE: 01/25/19 TIME: 08:26 24 HR Interval Summary Free Text/Dictation No events. Pain better controlled. Plan for ARU Exam/Review of Systems Vital Signs Vitals Vital Signs Date Temp Pulse Resp B/P (MAP) Pulse Ox O2 O2 Flow FiO2 Time Delivery Rate 01/25/19 98.7 80 18 100/55 98 Nasal 07:28 (70) Cannula 01/25/19 3.0 03:27 01/24/19 32 02:13 Intake and Output 01/24/19 01/24/19 01/25/19 1515:00 23:00 07:00 IntakeIntake Total 660 ml 350 ml 300 ml BalanceBalance 660 ml 350 ml 300 ml Exam Constitutional: alert, oriented Psych: no complaints, nl mood/affect Head: normocephalic, atraumatic Neck: No jvd Respiratory: diminished breath sounds; No clear to auscultation Cardiovascular: regular rate and rhythm; No edema Gastrointestinal: soft, non-tender Neurological: nl mental status, nl speech Labs Result Diagram: 01/25/19 0614 01/25/19 0614 Results 24hrs Laboratory Tests Test 01/25/19 06:14 White Blood Count 7.2 Red Blood Count 2.55 L Hemoglobin 7.5 L Hematocrit 22.1 L Mean Corpuscular Volume 86.7 Mean Corpuscular Hemoglobin 29.4 Mean Corpuscular Hemoglobin Concent 33.9 Red Cell Distribution Width 14.4 Platelet Count 115 #L Mean Platelet Volume 11.1 H Immature Granulocytes % 0.400 Neutrophils % 69.4 Lymphocytes % 16.9 Monocytes % 10.8 Eosinophils % 2.4 Basophils % 0.1 Nucleated Red Blood Cells % 0.0 Immature Granulocytes # 0.030 Neutrophils # 5.0 Lymphocytes # 1.2 Monocytes # 0.8 Eosinophils # 0.2 Basophils # 0.0 Nucleated Red Blood Cells # 0.0 Sodium Level 139 Potassium Level 3.7 Chloride Level 109 Carbon Dioxide Level 24 Anion Gap 6 Blood Urea Nitrogen 24 H Creatinine 0.89 Est Glomerular Filtrat Rate mL/min Glucose Level 105 Calcium Level 7.8 L Phosphorus Level 2.2 L Magnesium Level 1.9 Total Bilirubin 0.6 Direct Bilirubin 0.00 Indirect Bilirubin 0.6 Aspartate Amino Transf (AST/SGOT) 37 Alanine Aminotransferase (ALT/SGPT) 29 Alkaline Phosphatase 45 Total Protein 4.7 L Albumin 2.3 L Globulin 2.40 Albumin/Globulin Ratio 0.95 Medications Medications Current Medications IV Flush (NS 3 ml) 3 ml PER PROTOCOL IV ; Start 01/21/19 at 06:30 Acetaminophen/ Hydrocodone Bitart ([place] (5/325)) 1 tab Q6H PRN PO .MOD PAIN 4- 6 Last administered on 01/21/19at 07:21; Admin Dose 1 TAB; Start 01/21/19 at 06:30 Docusate Sodium (Colace) 100 mg Q12H PRN PO .CONSTIPATION; Start 01/21/19 at 06:30 Bisacodyl (Dulcolax) 5 mg DAILY PRN PO .CONSTIPATION; Start 01/21/19 at 06:30 Albuterol (Ventolin Hfa) 2 puff Q4H PRN INH WHEEZING AND SOB; Start 01/21/19 at 07:00 Donepezil HCl (Aricept) 10 mg DAILY PO Last administered on 01/24/19at 09:21; Admin Dose 10 MG; Start 01/21/19 at 09:00 Levothyroxine Sodium (Synthroid) 75 mcg AC BREAKFAST PO Last administered on 01/24/19at 06:37; Admin Dose 75 MCG; Start 01/21/19 at 08:00 Pantoprazole (Protonix Tab) 40 mg DAILY@06 PO Last administered on 01/25/19at 05:48; Admin Dose 40 MG; Start 01/21/19 at 09:00 Atorvastatin Calcium (Lipitor) 40 mg DAILY@21 PO Last administered on 01/24/19 22:00; Admin Dose 40 MG; Start 01/21/19 at 21:00 Aspirin (Aspirin) 81 mg DAILY PO Last administered on 01/24/19 09:21; Admin Dose 81 MG; Start 01/21/19 at 11:30 Dextrose (D50w Syringe) ONCE PRN IV DECREASED GLUCOSE; Start 01/21/19 at 22:00 Acetaminophen/ Hydrocodone Bitart ([place] (5/325)) 1 tab Q4H PRN PO .PAIN 4-6; Start 01/22/19 at 12:30 Diphenhydramine HCl (Benadryl) 25 mg Q4H PRN IV .PRURITUS Last administered on 01/24/19 12:10; Admin Dose 25 MG; Start 01/22/19 at 12:30 Ondansetron HCl (Zofran Inj) 4 mg Q6H PRN IV .NAUSEA/VOMITING Last administered on 01/24/19 09:22; Admin Dose 4 MG; Start 01/22/19 at 12:30 Naloxone HCl (Narcan) 0.2 mg Q2M PRN IV .RESP RATE; Start 01/22/19 at 12:30 Miscellaneous Information (* Miscellaneous Pharmacy Order) FENTANYL: 20 MCG SPI... GIVEN NEURAXIAL XX ; Start 01/22/19 at 12:30 Acetaminophen (Tylenol Tab) 650 mg Q6H PRN PO .PAIN 1-3 OR TEMP Last administered on 01/24/19 12:11; Admin Dose 650 MG; Start 01/22/19 at 13:30 Enoxaparin Sodium (Lovenox) 30 mg DAILY SC Last administered on 01/24/19 09:30; Admin Dose 30 MG; Start 01/24/19 at 09:00 Hydromorphone HCl (Dilaudid) 0.5 mg Q2H PRN IV MODERATE PAIN LEVEL 4-6 Last administered on 01/24/19 22:22; Admin Dose 0.5 MG; Start 01/22/19 at 20:30 BARB SHIRLEY Jan 25, 2019 08:27
[2019-01-25] MEDS: ENOXAPARIN 30 MG/0.3 ML SYG SC SCH (08:29)
[2019-01-25] MEDS: HYDROmorphONE 0.5 MG/0.5 ML SYG IV PRN (10:58)
--- NOTE | 2019-01-25 11:11 | DS ---
Date/Time of Note Date/Time of Note DATE: 01/25/19 TIME: 11:11 Discharge Summary Admission/Discharge Info Admit Date/Time Jan 21, 2019 at 06:08 Discharge Date/Time Discharge Diagnosis # acute right hip fracture-apparently occurred after mechanical fall: Hip x-ray: Acute, comminuted and mildly displaced spiral type fracture of the proximal femur in the subtrochanteric region with extension into the lesser trochanter- s/p medullary pinning by Dr. Lara on 01/22. # coronary artery disease: History of CABG. # hypertension # Hyperlipidemia # dementia # GERD Procedures Date/Time of Note Date/Time of Note DATE: 01/22/19 TIME: 20:24 Operative Report Procedure Date: Jan 22, 2019 Preoperative Diagnosis Right displaced subtrochanteric hip fracture Postoperative Diagnosis As above Operation/Procedure Performed Open reduction internal fixation right subtrochanteric hip fracture and intramedullary nail of right subtrochanteric hip fracture Modifier 22 secondary to significant increase in complexity which resulted in 50% increase time and effort. Hx of Present Illness 88-year-old female with a past medical history of hypertension, hyperlipidemia, coronary artery disease status post CABG, atrial fibrillation, COPD, hypothyroidism, dementia who presented to the emergency department complaining of right hip pain after mechanical fall at home. Patient was brought in via ambulance. Her daughter is her at the bedside. The patient articulates that she was in the bathroom and trying to get up when she fell over. She denies any head trauma or loss of consciousness. The daughter went with her to help assist her but she was unable to stand up. Ambulance was called. Patient's right lower extremity was noted to be externally rotated and shortened. Her pulses are intact bilaterally, her skin is warm to touch. She is able to who is presenting with right hip pain after a mechanical ground-level fall. The patient's right leg is externally rotated and shortened. She does report pain in the right hip. Her daughters do state that she ambulates with a walker. She at times does feel short of breath when she walks. She has a sock examiner as an outpatient Dr. Worley. Hospital Course Patient was admitted and seen by physical therapy, orthopedic surgery, and cardiology teams during the hospital stay. Again she was found with acute right hip fracture. She underwent surgical operative repair of this fracture. She tolerated the procedure well. She was cautiously continued on some of her cardiac medications. Over the course of her hospital stay she worked with physical therapy as well. Her vital signs are stable on day of discharge, she was able to tolerate diet. After getting clearance from the [employer] consultant teams she will be discharged to acute rehab unit and current condition to continue acute rehab. See printed medicine reconciliation sheet for full list of discharge medications. Home Meds Active Scripts Nifedipine* (Nifedipine ER*) 60 Mg Tablet.sa, 60 MG PO DAILY, #30 TAB.SA Prov:DUSTINBRIDGET STOREROOM CLERK 11/23/17 Reported Medications Solifenacin* (Vesicare*) 5 Mg Tablet, 5 MG PO DAILY, TAB 01/21/19 Spironolactone* (Aldactone*) 25 Mg Tablet, 25 MG PO BID, #60 TAB 01/21/19 Sacubitril/Valsartan (Entresto 24 mg-26 mg Tablet) 1 Each Tablet, 1 EACH PO BID, TAB 01/21/19 Memantine* (Namenda*) 10 Mg Tablet, 10 MG PO BID, #60 TAB 01/21/19 Metoprolol Succinate* (Toprol XL*) 50 Mg Tab.er.24h, 50 MG PO DAILY, #30 TAB 01/21/19 Furosemide* (Lasix*) 40 Mg Tablet, 40 MG PO BID, TAB 01/21/19 Clonidine Hcl* (Clonidine Hcl*) 0.3 Mg Tablet, 0.3 MG PO DAILY PRN for ELEVATED BLOOD PRESSURE, TAB 01/21/19 Aspirin (Low Dose Aspirin) 81 Mg Tablet.dr, 81 MG PO DAILY, #30 TAB 01/21/19 Esomeprazole Magnesium (Esomeprazole Magnesium) 40 Mg Capsule.dr, 40 MG PO BEFORE BREAKFAST, #30 CAP 11/17/17 Rosuvastatin Calcium* (Crestor*) 10 Mg Tablet, 10 MG PO QHS, #30 TAB 11/17/17 Albuterol Sulfate* (Ventolin HFA*) 18 Gm Hfa.aer.ad, 2 PUFF INHALATION Q4H PRN for WHEEZING AND SOB, #1 INHALER 11/17/17 Donepezil* (Donepezil*) 10 Mg Tablet, 10 MG PO DAILY, #30 TAB 11/17/17 Levothyroxine Sodium* (Levothyroxine Sodium*) 75 Mcg Tablet, 75 MG PO AC BREAKFAST, #30 11/17/17 Discontinued Reported Medications Solifenacin* (Vesicare*) 5 Mg Tablet, 5 MG PO DAILY, TAB 11/17/17 Ropinirole Hcl* (Ropinirole Hcl*) 0.5 Mg Tablet, 0.5 MG PO HS, TAB 11/17/17 Benzonatate* (Tessalon Perle*) 100 Mg Capsule, 100 MG PO Q8H PRN for COUGH, CAP 11/17/17 Calcium Carbonate (Hacx-Mnm-193) 500 Mg Tablet, 500 MG PO BID, TAB 11/17/17 Aspirin* (Aspirin* Chew) 81 Mg Tab.chew, 81 MG PO DAILY, TAB.CHEW 11/17/17 Discontinued Scripts Clonidine Hcl* (Clonidine Hcl*) 0.1 Mg Tab, 0.1 MG PO DAILY, #30 TAB Prov:BRIDGET CHAN STOREROOM CLERK 11/24/17 Metoprolol Succinate* (Toprol XL*) 25 Mg Tab.sr.24h, 12.5 MG PO DAILY, #30 TAB Prov:BRIDGET CHAN STOREROOM CLERK 11/23/17 Fluconazole* (Fluconazole*) 200 Mg Tablet, 200 MG PO DAILY, #5 TAB Prov:BRIDGET CHAN STOREROOM CLERK 11/23/17 Oseltamivir Phosphate* (Tamiflu*) 30 Mg Capsule, 30 MG PO BID, #4 CAP Prov:BRIDGET CHAN STOREROOM CLERK 11/23/17 Donepezil* (Donepezil*) 10 Mg Tablet, 10 MG PO DAILY, #30 TAB Prov:BRIDGET CHAN STOREROOM CLERK 11/23/17 Primary Care Provider Not On Staff Doctor Pending Labs Laboratory Tests Test 01/25/19 06:14 White Blood Count 7.2 10^3/ul (4.8-10.8) Red Blood Count 2.55 10^6/ul (4.20-5.40) Hemoglobin 7.5 g/dl (12.0-16.0) Hematocrit 22.1 % (37.0-47.0) Mean Corpuscular Volume 86.7 fl (82.0-101.0) Mean Corpuscular Hemoglobin 29.4 pg (29.0-33.0) Mean Corpuscular Hemoglobin Concent 33.9 g/dl (32.0-37.0) Red Cell Distribution Width 14.4 % (11.5-14.5) Platelet Count 115 10^3/UL (140-415) Mean Platelet Volume 11.1 fl (7.4-10.4) Immature Granulocytes % 0.400 % (0.001-0.429) Neutrophils % 69.4 % (39.0-77.0) Lymphocytes % 16.9 % (15.0-51.0) Monocytes % 10.8 % (0.0-11.0) Eosinophils % 2.4 % (0.0-7.0) Basophils % 0.1 % (0.0-2.0) Nucleated Red Blood Cells % 0.0 /100WBC (0.0-0.0) Immature Granulocytes # 0.030 10^3/ul (0.0-0.031) Neutrophils # 5.0 10^3/ul (1.6-7.5) Lymphocytes # 1.2 10^3/ul (0.8-2.9) Monocytes # 0.8 10^3/ul (0.3-0.9) Eosinophils # 0.2 10^3/ul (0.0-0.5) Basophils # 0.0 10^3/ul (0.0-0.1) Nucleated Red Blood Cells # 0.0 10^3/ul (0.0-0.0) Sodium Level 139 mmol/L (135-144) Potassium Level 3.7 mmol/L (3.5-5.1) Chloride Level 109 mmol/L (97-110) Carbon Dioxide Level 24 mmol/L (21-31) Anion Gap 6 (5-13) Blood Urea Nitrogen 24 mg/dl (7-20) Creatinine 0.89 mg/dl (0.44-1.00) Est Glomerular Filtrat Rate mL/min mL/min (>60) Glucose Level 105 mg/dl (70-220) Calcium Level 7.8 mg/dl (8.4-10.2) Phosphorus Level 2.2 mg/dl (2.5-4.9) Magnesium Level 1.9 mg/dl (1.7-2.5) Total Bilirubin 0.6 mg/dl (0.2-1.3) Direct Bilirubin 0.00 mg/dl (0.00-0.20) Indirect Bilirubin 0.6 mg/dl (0-1.1) Aspartate Amino Transf (AST/SGOT) 37 IU/L (15-46) Alanine Aminotransferase (ALT/SGPT) 29 IU/L (13-69) Alkaline Phosphatase 45 IU/L (42-121) Total Protein 4.7 g/dl (6.1-8.1) Albumin 2.3 g/dl (3.3-4.9) Globulin 2.40 g/dl (1.3-3.2) Albumin/Globulin Ratio 0.95 CAROL AN. Jan 25, 2019 11:11
[2019-01-25 11:30] VITALS: BP 116/56; PULSE 85; RESP 20
== END 2019-01-25 16:08 | DRG 481 ==
LOC: E/R 05:29 → 6WM 06:08 → CANRESERV 07:52 → EDBEDREQSVC 08:13 → ICU 01-22 16:00 → TEL 01-23 15:06
PROVIDERS: ADMIT Family Medicine; ATTEND Hospitalist
PROC: 0QH606Z Insertion of Intramedullary Internal Fixation Device into Right Upper Femur, Open Approach (ICD-10-PCS; 2019-01-22)
PROC: 30233N1 Transfusion of Nonautologous Red Blood Cells into Peripheral Vein, Percutaneous Approach (ICD-10-PCS; 2019-01-22)
PROC: 0QS604Z Reposition Right Upper Femur with Internal Fixation Device, Open Approach (ICD-10-PCS; principal; 2019-01-22 07:30)
DX: S72.21XA Displaced subtrochanteric fracture of right femur, initial encounter for closed fracture (principal); N17.9 Acute kidney failure, unspecified; I50.40 Unspecified combined systolic (congestive) and diastolic (congestive) heart failure; I13.0 Hypertensive heart and chronic kidney disease with heart failure and stage 1 through stage 4 chronic kidney disease, or unspecified chronic kidney disease; J44.9 Chronic obstructive pulmonary disease, unspecified; I11.0 Hypertensive heart disease with heart failure; I48.0 Paroxysmal atrial fibrillation; E87.5 Hyperkalemia; I25.5 Ischemic cardiomyopathy; F03.90 Unspecified dementia, unspecified severity, without behavioral disturbance, psychotic disturbance, mood disturbance, and anxiety; R00.1 Bradycardia, unspecified; I44.7 Left bundle-branch block, unspecified; D64.9 Anemia, unspecified; E78.5 Hyperlipidemia, unspecified; I25.10 Atherosclerotic heart disease of native coronary artery without angina pectoris; E03.9 Hypothyroidism, unspecified; K21.9 Gastro-esophageal reflux disease without esophagitis; N18.9 Chronic kidney disease, unspecified; Z95.1 Presence of aortocoronary bypass graft; Z79.82 Long term (current) use of aspirin; E87.6 Hypokalemia
CPT/HCPCS: 36430; 36600; 71045; 72170; 73510; 73530; 73550; 80048; 80053; 80061; 82306; 82550; 82553; 82803; 82962; 83036; 83735; 84100; 84443; 84484; 85025; 85610; 85730; 86850; 86900; 86901; 86920; 87081; 93005; 93306; 94664; 97110; 97116; 97530; C1713; J0690; J1170; J1200; J1650; J1815; J1940; J2270; J2370; J2405; J2795; J3010; J7030; J7040; P9016; P9045

== ENCOUNTER 2019-01-25 11:19 | Inpatient (IN) | payer MEDICARE, OTHER ==
[~2019-01-25] VITALS: Ht 149.9 cm; Wt 71.8 kg
[~2019-01-25 11:19] MED LIST changes: -ASPI-903 PO; +ASPI81TA52 PO; -BENZ-6 PO; -CALC500T91 PO; -CLON-379 PO; +CLON0.3T PO; -FLUC200T52 PO; +FURO-109 PO; +MEMA10TA PO; +METO-319 PO; -METO-335 PO; -OSEL30CA PO; -ROPI0.5T2 PO; +SACU1TAB PO; +SPIR25TA PO
[2019-01-25 14:00] VITALS: BP 117/59; PULSE 87; RESP 18
[2019-01-25] MEDS ORDERED: BISACODYL 10 MG SUPP PR PRN (15:00)
[2019-01-25] MEDS ORDERED: LACTULOSE 30ML CUP PO PRN (15:00)
[2019-01-25] MEDS ORDERED: NALOXONE (0.4 MG/ML) INJ IV PRN (15:00)
[2019-01-25] MEDS ORDERED: DIPHENHYDRAMINE 50 MG INJ IV PRN (15:00)
[2019-01-25] MEDS ORDERED: ONDANSETRON 4 MG INJ IV PRN (15:00)
[2019-01-25] MEDS ORDERED: ALBUTEROL HFA 8 GM INHALER INH PRN (15:00)
[2019-01-25] MEDS ORDERED: ACETAMINOPHEN 325 MG TAB PO PRN (15:00)
[2019-01-25] MEDS ORDERED: MAGNESIUM HYDROXIDE 30ML CUP PO PRN (15:00)
[2019-01-25] MEDS ORDERED: PENDING SANTYL ORDER FOR WOUND CARE XX PRN (15:00)
[2019-01-25 15:20] VITALS: Ht 149.9 cm; Wt 71.8 kg
[2019-01-25] MEDS: HYDROCODONE/APAP (5/325) TAB PO PRN ×2 (16:20→20:40)
--- NOTE | 2019-01-25 17:34 | CONS ---
DATE OF ADMISSION: 01/25/2019 DATE OF CONSULTATION: 01/25/2019 TYPE OF CONSULTATION: Rehabilitation post-admission physician evaluation. REHABILITATION IMPAIRMENT CATEGORY: Acute right hip fracture, comminuted and mildly displaced spiral type fracture of proximal femur and subtrochanteric region and extension into the right lesser troch anter, status post medullary pinning by Dr. Lara on 01/22/2019. ACTIVE COMORBIDITIES: Include: 1. Recent blunt head trauma. 2. Coronary artery disease. 3. Osteoarthritis. 4. Diabetes mellitus type 2. 5. Essential hypertension. 6. Hyperlipidemia. 7. Impairment in self-care and mobility. HISTORY OF PRESENT ILLNESS: An 88-year-old lady with multiple medical problems as listed including m ild dementia, hypothyroidism, COPD, sustained mechanical fall on her way to the bathroom, but no loss of consciousness, found to have fracture as noted above. The patient underwent cardiac clearance pr ior to intramedullary nailing by Dr. Lara and no intraoperative complications. She is now transferre d to acute rehab unit for comprehensive interdisciplinary rehab care. FUNCTIONAL HISTORY: Prior to recent events, the patient was independent in self-care and mobility. ALLERGIES: NONE. FAMILY HISTORY: Noncontributory. CURRENT MEDICATIONS: Include: 1. Aspirin 81 mg daily. 2. Aricept 10 mg daily. 3. Lovenox 30 mg daily. 4. Synthroid 75 mcg daily. 5. Protonix 40 mg p.o. daily. 6. Colace 100 mg p.o. b.i.d. 7. Senna 1 tab daily. 8. Lipitor 40 mg p.o. at bedtime. PHYSICAL EXAMINATION: GENERAL: Elderly-appearing lady, comfortable at rest, in no acute distress. VITAL SIGNS: Currently afebrile, temperature 98, pulse 87, blood pressure 117/69, O2 saturation 99% on 2 liters. NECK: Supple. No JVD or lymphadenopathy. CARDIAC: S1, S2. No added sounds or murmurs. CHEST: Diminished air entry bilaterally, but no rales or wheezes. ABDOMEN: Soft, nontender. No guarding or rebound. EXTREMITIES: No cyanosis, clubbing, edema. NEUROLOGIC: Generalized weakness. Currently, the patient requires assistance in self-care and mobility tasks. I have reviewed preadmission screening and the patient's current functional status is consistent with preadmission screen. SOCIAL HISTORY: The patient lives at home and hopes to return there prior to discharge. PLAN: The patient has been admitted for comprehensive interdisciplinary acute rehab and is anticipat ed to be able to tolerate 3 hours daily therapy in divided doses for at least 5/7 days a week. Treat ment plan will include: 1. Physical therapy to focus on bed mobility, transfers, household ambulation with a goal of having the patient reaches standby assist for ambulation. 2. Occupational therapy to focus on hygiene, grooming, dressing, bathing and toileting activities wi th the goal of having the patient reach a standby assist level. 3. Rehabilitation nursing for carryover of therapeutic interventions, the goal of continent of bowel and bladder, the goal of pain adequately managed on oral medications. REHABILITATION BARRIER: Mild dementia. ESTIMATED LENGTH OF STAY: 14 days. DISPOSITION GOALS: Home with family. Dictated By: PRACHI DALTON MD SV/NTS Conf#: [id number] DID#: [id number] CC: DALIA LIANG MD;*EndCC*
[2019-01-25 20:00] VITALS: BP 110/51; PULSE 82; RESP 18
[2019-01-25] MEDS: DOCUSATE SODIUM 100 MG CAP PO SCH (20:40)
[2019-01-25] MEDS: ATORVASTATIN 40 MG TAB PO SCH (20:40)
[2019-01-25] MEDS: SENNA TAB PO SCH (20:40)
[2019-01-26 02:36] VITALS: BP 117/55; PULSE 75; RESP 18
[2019-01-26] MEDS: PANTOPRAZOLE (EC) 40 MG TAB PO SCH (06:54)
[2019-01-26] MEDS: LEVOTHYROXINE 75 MCG TAB PO SCH (06:54)
[2019-01-26] MEDS: HYDROCODONE/APAP (5/325) TAB PO PRN ×3 (06:55→22:22)
[2019-01-26 07:30] VITALS: BP 115/56; PULSE 77; RESP 20
[2019-01-26] MEDS: HYDROmorphONE 0.5 MG/0.5 ML SYG IV PRN ×3 (08:59→19:40)
[2019-01-26] MEDS: DOCUSATE SODIUM 100 MG CAP PO SCH ×2 (12:45→20:42)
[2019-01-26] MEDS: ENOXAPARIN 30 MG/0.3 ML SYG SC SCH (12:46)
[2019-01-26] MEDS: ASPIRIN 81 MG TAB PO SCH (13:03)
[2019-01-26] MEDS: DONEPEZIL 10 MG TAB PO SCH (13:03)
--- NOTE | 2019-01-26 13:48 | HP ---
Date/Time of Note Date/Time of Note DATE: 01/26/19 TIME: 13:39 Assessment/Plan VTE Prophylaxis Risk score (from Ns)>0 risk: 14 [place] [facility] [place] Pharmacological prophylaxis: LMWH Lines/Catheters Urinary Cath still in place: No Assessment/Plan Hospital Course SUBJECTIVE: No acute distress. OBJECTIVE: Vital signs-see below PHYSICAL EXAM: Constitutional: Elderly female,not in acute distress. HEENT: Head atraumatic and normocephalic. Eyes: Extraocular muscles intact. Anicteric sclerae. Pupils equal bilaterally, reactive to light. NECK: Supple without lymph node. CHEST: Clear and good breath sounds equally. No wheezing. No rhonchi. HEART: S1, S2. Regular rate and rhythm. ABDOMEN: Soft/non tender with no rebound tenderness. Bowel sounds were present. EXTREMITIES: RLE surgical dressing c/d/i. no cyanosis, clubbing or edema. NEUROLOGIC: Alert and oriented x3. No focal deficit. No sensory deficit. PSYCHOSOCIAL: No signs of depression. INTEGUMENTARY: No open wounds. ASSESSMENT AND PLAN: Acute right hip fracture -s/p medullary pinning by Dr. Lara on 01/22. -dvt ppx,pain control,pt/rehab. Coronary artery disease: History of CABG. - Resume aspirin, beta-blockers as tolerated -cont. statin Acute on chronic anemia -Add iron panel to a.m. labs and treat accordingly. Hypertension -BP has been borderline low, such all blood pressure medications are on hold. At this time, we will start her back on low-dose beta-blockers and will go from here. Hyperlipidemia - Continue statin Dementia - Continue Aricept Hypothyroidism -On Synthroid Patient's urine culture is growing GNR. She does not admit to any UTI symptoms. She does not have any fevers or leukocytosis. At this time, hold off to antimicrobials until final cultures are out. DVT GI prophylaxis: LOVENOX Approximately 60 m spent on this history and physical. Patient was seen in collaboration with Result Diagram: 01/26/19 0623 01/26/19 0623 Results 24hrs Laboratory Tests Test 01/25/19 17:00 01/26/19 06:23 Urine Color YELLOW Urine Clarity SLIGHTLY CLOUDY A Urine pH 5.0 Urine Specific Topmost 1.016 Urine Ketones NEGATIVE Urine Nitrite NEGATIVE Urine Bilirubin NEGATIVE Urine Urobilinogen NEGATIVE Urine Leukocyte Esterase NEGATIVE Urine Microscopic RBC 1 Urine Microscopic WBC 4 Urine Squamous Epithelial Cells FEW Urine Amorphous Crystals FEW A Urine Bacteria MODERATE Urine Hemoglobin 1+ H Urine Glucose NEGATIVE Urine Total Protein NEGATIVE White Blood Count 7.2 Red Blood Count 2.68 L Hemoglobin 7.8 L Hematocrit 23.6 L Mean Corpuscular Volume 88.1 Mean Corpuscular Hemoglobin 29.1 Mean Corpuscular Hemoglobin Concent 33.1 Red Cell Distribution Width 14.3 Platelet Count 165 # Mean Platelet Volume 10.6 H Immature Granulocytes % 0.600 H Neutrophils % 64.4 Lymphocytes % 18.5 Monocytes % 12.4 H Eosinophils % 3.8 Basophils % 0.3 Nucleated Red Blood Cells % 0.0 Immature Granulocytes # 0.040 H Neutrophils # 4.6 Lymphocytes # 1.3 Monocytes # 0.9 Eosinophils # 0.3 Basophils # 0.0 Nucleated Red Blood Cells # 0.0 Sodium Level 137 Potassium Level 4.1 Chloride Level 108 Carbon Dioxide Level 25 Anion Gap 4 L Blood Urea Nitrogen 22 H Creatinine 0.89 Est Glomerular Filtrat Rate mL/min Glucose Level 108 Calcium Level 7.9 L Total Bilirubin 0.8 Direct Bilirubin 0.00 Indirect Bilirubin 0.8 Aspartate Amino Transf (AST/SGOT) 63 H Alanine Aminotransferase (ALT/SGPT) 63 Alkaline Phosphatase 89 # Total Protein 4.9 L Albumin 2.3 L Globulin 2.60 Albumin/Globulin Ratio 0.88 HPI/ROS Admit Date/Time Admit Date/Time Jan 25, 2019 at 14:32 Hx of Present Illness This is a 88-year-old female with history of coronary artery disease/CABG/hypertension, hyperlipidemia, dementia, who was admitted at [facility] on 01/21/2019 with acute right hip fracture secondary to mechanical fall who underwent medullary pinning by Dr. Lara on 01/22. Postop erative course was noted for anemia requiring 4 units of PRBC transfusion. Patient was then evaluated by physical therapist who recommended rehabilitation at acute rehabilitation unit. At my encounter with the patient, she denied chest pain, palpitation, shortness of breath, nausea, vomiting, abdominal pain, loss of consciousness, dizziness, headache, fever, dysuria, hematuria, numbness, tingling or other constitutional symptoms. Patient's labs showed hemoglobin 7.5, hematocrit 22.1. Otherwise unremarkable. Stable vital signs. ROS A 12 point review of system was assessed and is negative other than what is mentioned in the HPI PMH/Family/Social Past Medical History See HPI Medications Current Medications Docusate Sodium (Colace) 100 mg BID PO Last administered on 01/26/19at 12:45; Admin Dose 100 MG; Start 01/25/19 at 21:00 Senna (Senokot) 1 tab HS PO Last administered on 01/25/19at 20:40; Admin Dose 1 TAB; Start 01/25/19 at 21:00 Magnesium Hydroxide (Milk Of Mag) 30 ml BID PRN PO CONSTIPATION; Start 01/25/19 at 15:00 Lactulose (Enulose) 20 gm DAILY PRN PO CONSTIPATION; Start 01/25/19 at 15:00 Bisacodyl (Dulcolax Supp) 10 mg DAILY PRN [place] CONSTIPATION; Start 01/25/19 at 15:00 Acetaminophen (Tylenol Tab) 650 mg Q4H PRN PO PAIN; Start 01/25/19 at 15:00 Miscellaneous Information (Pending [facility] Order For Wound Care) This patient cruz... PRN PRN XX WOUND CARE; Start 01/25/19 at 15:00 Albuterol (Ventolin Hfa) 2 puff Q4H RESP THERAPY PRN INH SHORTNESS OF BREATH; Start 01/25/19 at 15:00 Aspirin (Aspirin) 81 mg DAILY PO Last administered on 01/26/19at 13:03; Admin Dose 81 MG; Start 01/26/19 at 09:00 Atorvastatin Calcium (Lipitor) 40 mg HS PO Last administered on 01/25/19at 20:40; Admin Dose 40 MG; Start 01/25/19 at 21:00 Diphenhydramine HCl (Benadryl) 25 mg Q4 PRN IV itching; Start 01/25/19 at 15:00 Donepezil HCl (Aricept) 10 mg DAILY PO Last administered on 01/26/19 13:03; Admin Dose 10 MG; Start 01/26/19 at 09:00 Enoxaparin Sodium (Lovenox) 30 mg DAILY SC Last administered on 01/26/19at 12:46; Admin Dose 30 MG; Start 01/26/19 at 09:00 Acetaminophen/ Hydrocodone Bitart ([place] (5/325)) 1 tab Q4H PRN PO MODERATE PAIN LEVEL 4-6 Last administered on 01/26/19at 09:06; Admin Dose 1 TAB; Start 01/25/19 at 15:00 Hydromorphone HCl (Dilaudid) 0.5 mg Q2 PRN IV SEVERE PAIN LEVEL 7-10 Last a dministered on 01/26/19at 12:58; Admin Dose 0.5 MG; Start 01/25/19 at 15:00 Levothyroxine Sodium (Synthroid) 75 mcg DAILY@06 PO Last administered on 01/26/19at 06:54; Admin Dose 75 MCG; Start 01/26/19 at 06:00 Naloxone HCl (Narcan) 0.2 mg Q2M PRN IV OD; Start 01/25/19 at 15:00 Ondansetron HCl (Zofran Inj) 4 mg Q6H PRN IV NAUSEA AND/OR VOMITING; Start 01/25/19 at 15:00 Pantoprazole (Protonix Tab) 40 mg DAILY@06 PO Last administered on 01/26/19at 06:54; Admin Dose 40 MG; Start 01/26/19 at 06:00 Coded Allergies: No Known Allergy (Unverified , 11/17/17) Past Surgical History See HPI Past Surgical Hx: noncontributory Family History Significant Family History: no pertinent family hx Social History Patient denied history of alcohol, smoking or illicit drug use. Smoking Status: Never smoker Exam/Review of Systems Vital Signs Vitals Vital Signs Date Temp Pulse Resp B/P (MAP) Pulse Ox O2 O2 Flow FiO2 Time Delivery Rate 01/26/19 97.8 77 20 115/56 99 Nasal 2.0 07:30 (75) Cannula Intake and Output 01/25/19 01/25/19 01/26/19 1414:59 22:59 06:59 IntakeIntake Total 1680 ml 450 ml OutputOutput Total 200 ml 650 ml BalanceBalance 1480 ml -200 ml JAMES RUEDA V. DENTURE WAXER Jan 26, 2019 13:48
[2019-01-26 14:00] VITALS: BP 112/53; PULSE 78; RESP 18
[2019-01-26 19:14] VITALS: BP 117/58; PULSE 75; RESP 18
--- NOTE | 2019-01-26 19:46 | PN ---
DATE: 01/26/2019 SUBJECTIVE: The patient slept well overnight, required [place] for pain with good effect, was voiding well using the bedpan. OBJECTIVE: VITAL SIGNS: Temperature 98.2, pulse 78, blood pressure 112/53, O2 saturation 95% on room air. NECK: Supple. No JVD or lymphadenopathy. CARDIAC: S1, S2. No added sounds or murmurs. CHEST: Diminished air entry at the bases. ABDOMEN: Soft, nontender. No guarding or rebound. EXTREMITIES: No cyanosis, clubbing, edema. NEUROLOGIC: Grossly intact. ASSESSMENT: 1. Rehabilitation, status post acute right hip fracture with comminuted and mildly displaced spiral type, status post medullary pinning. Continues comprehensive rehabilitation program. 2. Coronary artery disease, currently stable. No coronary ischemia. 3. Type 2 diabetes, managed by primary care team. 4. Essential hypertension, currently stable. 5. History of hyperlipidemia. Dictated By: PRACHI DALTON MD SV/JAMESON Conf#: [id number] DID#: [id number] CC: DALIA LIANG MD;*EndCC*
[2019-01-26] MEDS: SENNA TAB PO SCH (20:42)
[2019-01-26] MEDS: ATORVASTATIN 40 MG TAB PO SCH (20:42)
[2019-01-27 02:00] VITALS: BP 114/57; PULSE 80; RESP 18
[2019-01-27] MEDS: PANTOPRAZOLE (EC) 40 MG TAB PO SCH (06:01)
[2019-01-27] MEDS: LEVOTHYROXINE 75 MCG TAB PO SCH (06:01)
[2019-01-27 07:00] VITALS: BP 134/66; PULSE 75; RESP 18
[2019-01-27] MEDS: HYDROCODONE/APAP (5/325) TAB PO PRN ×3 (08:39→22:30)
[2019-01-27] MEDS: ENOXAPARIN 30 MG/0.3 ML SYG SC SCH (08:40)
[2019-01-27] MEDS: DOCUSATE SODIUM 100 MG CAP PO SCH ×2 (08:40→20:26)
[2019-01-27] MEDS: ASPIRIN 81 MG TAB PO SCH (08:41)
[2019-01-27] MEDS: DONEPEZIL 10 MG TAB PO SCH (08:41)
[2019-01-27] MEDS: METOPROLOL 25 MG TAB PO SCH (08:48)
[2019-01-27] MEDS: HYDROmorphONE 0.5 MG/0.5 ML SYG IV PRN (10:16)
--- NOTE | 2019-01-27 12:46 | PN ---
Date/Time of Note Date/Time of Note DATE: 01/27/19 TIME: 12:43 Assessment/Plan VTE Prophylaxis Risk score (from Ns)>0 risk: 11 SCD applied (from Ns): Yes Pharmacological prophylaxis: LMWH Lines/Catheters IV Catheter Type (from Nrs): [place]ine Lock Urinary Cath still in place: No Assessment/Plan Hospital Course SUBJECTIVE: No acute distress. OBJECTIVE: Vital signs-see below PHYSICAL EXAM: Constitutional: Elderly female,not in acute distress. HEENT: Head atraumatic and normocephalic. Eyes: Extraocular muscles intact. Anicteric sclerae. Pupils equal bilaterally, reactive to light. NECK: Supple without lymph node. CHEST: Clear and good breath sounds equally. No wheezing. No rhonchi. HEART: S1, S2. Regular rate and rhythm. ABDOMEN: Soft/non tender with no rebound tenderness. Bowel sounds were present. EXTREMITIES: RLE surgical dressing c/d/i. no cyanosis, clubbing or edema. NEUROLOGIC: Alert and oriented x3. No focal deficit. No sensory deficit. PSYCHOSOCIAL: No signs of depression. INTEGUMENTARY: No open wounds. ASSESSMENT AND PLAN: Acute right hip fracture -s/p medullary pinning by Dr. Lara on 01/22. -dvt ppx,pain control,pt/rehab. Coronary artery disease: History of CABG. - Resume aspirin, beta-blockers as tolerated -cont. statin CHF/Cardiomyopathy -clinically stable-latest ef 40% -resume entresto as BP allows -resume lasix at a lower dose to allow room for bp -cont.BB Acute on chronic irin deficient anemia -start iron sup Hypertension -Tolerating low dose BB Hyperlipidemia - Continue statin-Lipid panel stable-decrease dose to 10 per oupt dosing. Dementia - Continue Aricept -resume Namenda Hypothyroidism -On Synthroid UTI -Ciprox5 days DVT GI prophylaxis: LOVENOX Patient was seen in collaboration with Result Diagram: 01/26/1962201/26/19 0623 Results 24hrs Laboratory Tests Test 01/27/19 06:20 Iron Level 24 L Total Iron Binding Capacity 193 L Percent Iron Saturation 12 L Ferritin 114.0 Exam/Review of Systems Exam Vitals Vital Signs Date Temp Pulse Resp B/P (MAP) Pulse Ox O2 O2 Flow FiO2 Time Delivery Rate 01/27/19 Nasal 2.0 08:30 Cannula 01/27/19 97.6 75 18 134/66 100 07:00 (88) Intake and Output 01/26/19 01/26/19 01/27/19 1515:00 23:00 07:00 IntakeIntake Total 960 ml 700 ml BalanceBalance 960 ml 700 ml Results Results 24hrs Laboratory Tests Test 01/27/19 06:20 Iron Level 24 L Total Iron Binding Capacity 193 L Percent Iron Saturation 12 L Ferritin 114.0 Medications Medication Current Medications Docusate Sodium (Colace) 100 mg BID PO Last administered on 01/27/19 08:40; Admin Dose 100 MG; Start 01/25/19 at 21:00 Senna (Senokot) 1 tab HS PO Last administered on 01/26/19at 20:42; Admin Dose 1 TAB; Start 01/25/19 at 21:00 Magnesium Hydroxide (Milk Of Mag) 30 ml BID PRN PO CONSTIPATION; Start 01/25/19 at 15:00 Lactulose (Enulose) 20 gm DAILY PRN PO CONSTIPATION; Start 01/25/19 at 15:00 Bisacodyl (Dulcolax Supp) 10 mg DAILY PRN [place] CONSTIPATION; Start 01/25/19 at 15:00 Acetaminophen (Tylenol Tab) 650 mg Q4H PRN PO PAIN; Start 01/25/19 at 15:00 Miscellaneous Information (Pending [facility] Order For Wound Care) This patient cruz... PRN PRN XX WOUND CARE; Start 01/25/19 at 15:00 Albuterol (Ventolin Hfa) 2 puff Q4H RESP THERAPY PRN INH SHORTNESS OF BREATH; Start 01/25/19 at 15:00 Aspirin (Aspirin) 81 mg DAILY PO Last administered on 01/27/19 08:41; Admin Dose 81 MG; Start 01/26/19 at 09:00 Atorvastatin Calcium (Lipitor) 40 mg HS PO Last administered on 01/26/19at 20:42; Admin Dose 40 MG; Start 01/25/19 at 21:00 Diphenhydramine HCl (Benadryl) 25 mg Q4 PRN IV itching; Start 01/25/19 at 15:00 Donepezil HCl (Aricept) 10 mg DAILY PO Last administered on 01/27/19at 08:41; Ad min Dose 10 MG; Start 01/26/19 at 09:00 Enoxaparin Sodium (Lovenox) 30 mg DAILY SC Last administered on 01/27/19at 08:40; Admin Dose 30 MG; Start 01/26/19 at 09:00 Acetaminophen/ Hydrocodone Bitart ([place] (5/325)) 1 tab Q4H PRN PO MODERATE PAIN LEVEL 4-6 Last administered on 01/27/19at 08:39; Admin Dose 1 TAB; Start 01/25/19 at 15:00 Hydromorphone HCl (Dilaudid) 0.5 mg Q2 PRN IV SEVERE PAIN LEVEL 7-10 Last administered on 01/27/19at 10:16; Admin Dose 0.5 MG; Start 01/25/19 at 15:00 Levothyroxine Sodium (Synthroid) 75 mcg DAILY@06 PO Last administered on 01/27/19at 06:01; Admin Dose 75 MCG; Start 01/26/19 at 06:00 Naloxone HCl (Narcan) 0.2 mg Q2M PRN IV OD; Start 01/25/19 at 15:00 Ondansetron HCl (Zofran Inj) 4 mg Q6H PRN IV NAUSEA AND/OR VOMITING; Start 01/25/19 at 15:00 Pantoprazole (Protonix Tab) 40 mg DAILY@06 PO Last administered on 01/27/19at 06:01; Admin Dose 40 MG; Start 01/26/19 at 06:00 Metoprolol Tartrate (Lopressor) 25 mg DAILY PO Last administered on 01/27/19at 08:48; Admin Dose 25 MG; Start 01/27/19 at 09:00 Ferric Sodium Gluconate Complex 125 mg/Sodium Chloride 100 ml @ 100 mls/hr DAILY@1300 IVPB ; Start 01/27/19 at 13:00; Stop 01/29/19 at 13:59 Ciprofloxacin (Cipro) 500 mg BID@,18 PO ; Start 01/27/19 at 18:00; Stop 02/01/19 at 17:59 JAMES RUEDA NP Jan 27, 2019 12:46
[2019-01-27] MEDS: SOD FERRIC GLUC COMPLX 125 MG in SOD CHLORIDE 0.9% 100 ML IVPB SCH (12:54)
[2019-01-27 13:13] VITALS: BP 125/49; PULSE 67
[2019-01-27] MEDS: FUROSEMIDE 20 MG TAB PO SCH (13:13)
[2019-01-27 14:00] VITALS: BP 133/63; PULSE 69; RESP 18
--- NOTE | 2019-01-27 14:37 | PN ---
DATE: 01/27/2019 SUBJECTIVE: The patient had moderate pain in the right hip overnight requiring Dilaudid and [place]. PHYSICAL EXAMINATION VITAL SIGNS: Temperature 97.6, pulse 75, blood pressure 134/66, O2 saturation 96% on 2 liters. NECK: Supple. No JVD. CARDIAC: S1, S2, no added sounds or murmurs. CHEST: Diminished air entry bilaterally. ABDOMEN: Soft, nontender. EXTREMITIES: No cyanosis, clubbing, 1+ edema. LABORATORY DATA: Iron panel: Iron was 24, TIBC was 193. Iron saturation was 12%. IMPRESSION AND PLAN: 1. Rehabilitation status post acute right hip fracture, comminuted with mild displaced injury spiral type, status post medullary pinning. Continues comprehensive rehabilitation program, gait max logan t 15 feet with a wheelchair, activities of daily living max assist, lower body activities of daily li ving, minimal assist/moderate assist upper body. 2. Coronary artery disease, currently stable. 3. Type 2 diabetes managed by primary. 4. Essential hypertension. 5. Hyperlipidemia. 6. Evidence of iron deficiency anemia. Will defer to primary team to prescribe iron, which has been described as ferrous gluconate. Dictated By: PRACHI DALTON MD SV/JAMESON Conf#: [id number] DID#: [id number] CC: DALIA LIANG MD;*EndCC*
[2019-01-27] MEDS: CIPROFLOXACIN 500 MG TAB PO SCH (18:42)
[2019-01-27 20:00] VITALS: BP 111/56; PULSE 69; RESP 18
[2019-01-27] MEDS: SENNA TAB PO SCH (20:26)
[2019-01-27] MEDS: ATORVASTATIN 10 MG TAB PO SCH (20:26)
[2019-01-27] MEDS: SACUBITRIL/VALSARTAN (24mg-26mg) TABLET PO SCH (20:26)
[2019-01-27] MEDS: MEMANTINE 10 MG TAB PO SCH (20:26)
[2019-01-28 01:54] VITALS: BP 131/63; PULSE 83; RESP 18
[2019-01-28] MEDS: PANTOPRAZOLE (EC) 40 MG TAB PO SCH (05:57)
[2019-01-28] MEDS: CIPROFLOXACIN 500 MG TAB PO SCH ×2 (05:57→17:25)
[2019-01-28] MEDS: LEVOTHYROXINE 75 MCG TAB PO SCH (05:57)
[2019-01-28 07:00] VITALS: BP 131/60; PULSE 82; RESP 18
--- NOTE | 2019-01-28 08:07 | PN ---
Date/Time of Note Date/Time of Note DATE: 01/28/19 TIME: 08:03 Subjective AWAKE ALERET , MILD PAIN PO GOOD Objective Vital Signs Date Temp Pulse Resp B/P (MAP) Pulse Ox O2 O2 Flow FiO2 Time Delivery Rate 01/28/19 98.0 83 18 131/63 97 Room Air 01:54 (85) 01/27/19 2.0 22:00 Intake and Output 01/27/19 01/27/19 01/28/19 1515:00 23:00 07:00 IntakeIntake Total 1680 ml OutputOutput Total 800 ml BalanceBalance 880 ml Exam LUNGS CTA COR RRR - HOMANS CLOF ALL MOBS MAX A Results/Medications Result Diagram: 01/26/1962201/26/19622 Medications Current Medications Docusate Sodium (Colace) 100 mg BID PO Last administered on 01/27/19at 20:26; Admin Dose 100 MG; Start 01/25/19 at 21:00 Senna (Senokot) 1 tab HS PO Last administered on 01/27/19at 20:26; Admin Dose 1 TAB; Start 01/25/19 at 21:00 Magnesium Hydroxide (Milk Of Mag) 30 ml BID PRN PO CONSTIPATION; Start 01/25/19 at 15:00 Lactulose (Enulose) 20 gm DAILY PRN PO CONSTIPATION; Start 01/25/19 at 15:00 Bisacodyl (Dulcolax Supp) 10 mg DAILY PRN [place] CONSTIPATION; Start 01/25/19 at 15:00 Acetaminophen (Tylenol Tab) 650 mg Q4H PRN PO PAIN; Start 01/25/19 at 15:00 Miscellaneous Information (Pending [facility] Order For Wound Care) This patient cruz... PRN PRN XX WOUND CARE; Start 01/25/19 at 15:00 Albuterol (Ventolin Hfa) 2 puff Q4H RESP THERAPY PRN INH SHORTNESS OF BREATH; Start 01/25/19 at 15:00 Aspirin (Aspirin) 81 mg DAILY PO Last administered on 01/27/19at 08:41; Admin Dose 81 MG; Start 01/26/19 at 09:00 Diphenhydramine HCl (Benadryl) 25 mg Q4 PRN IV itching; Start 01/25/19 at 15:00 Donepezil HCl (Aricept) 10 mg DAILY PO Last administered on 01/27/19 08:41; Admin Dose 10 MG; Start 01/26/19 at 09:00 Enoxaparin Sodium (Lovenox) 30 mg DAILY SC Last administered on 01/27/19 08:40; Admin Dose 30 MG; Start 01/26/19 at 09:00 Acetaminophen/ Hydrocodone Bitart ([place] (5/325)) 1 tab Q4H PRN PO MODERATE PAIN LEVEL 4-6 Last administered on 01/27/19 22:30; Admin Dose 1 TAB; Start 01/25/19 at 15:00 Hydromorphone HCl (Dilaudid) 0.5 mg Q2 PRN IV SEVERE PAIN LEVEL 7-10 Last administered on 01/27/19 10:16; Admin Dose 0.5 MG; Start 01/25/19 at 15:00 Levothyroxine Sodium (Synthroid) 75 mcg DAILY@06 PO Last administered on 01/28/19 05:57; Admin Dose 75 MCG; Start 01/26/19 at 06:00 Naloxone HCl (Narcan) 0.2 mg Q2M PRN IV OD; Start 01/25/19 at 15:00 Ondansetron HCl (Zofran Inj) 4 mg Q6H PRN IV NAUSEA AND/OR VOMITING Last administered on 01/27/19 12:39; Admin Dose 4 MG; Start 01/25/19 at 15:00 Pantoprazole (Protonix Tab) 40 mg DAILY@06 PO Last administered on 01/28/19 05:57; Admin Dose 40 MG; Start 01/26/19 at 06:00 Metoprolol Tartrate (Lopressor) 25 mg DAILY PO Last administered on 01/27/19 08:48; Admin Dose 25 MG; Start 01/27/19 at 09:00 Ferric Sodium Gluconate Complex 125 mg/Sodium Chloride 100 ml @ 100 mls/hr DAILY@1300 IVPB Last administered on 01/27/19 12:54; Admin Dose 100 MLS/HR; Start 01/27/19 at 13:00; Stop 01/29/19 at 13:59 Ciprofloxacin (Cipro) 500 mg BID@06,18 PO Last administered on 01/28/19 05:57; Admin Dose 500 MG; Start 01/27/19 at 18:00; Stop 02/01/19 at 17:59 Sacubitril/ Valsartan (Entresto 24 Mg-26 Mg) 1 tab BID PO Last administered on 01/27/19 20:26; Admin Dose 1 TAB; Start 01/27/19 at 21:00 Atorvastatin Calcium (Lipitor) 10 mg HS PO Last administered on 01/27/19 20:26; Admin Dose 10 MG; Start 01/27/19 at 21:00 Furosemide (Lasix) 20 mg DAILY PO Last administered on 01/27/19at 13:13; Admin Dose 20 MG; Start 01/27/19 at 13:00 Memantine (Namenda) 10 mg BID PO Last administered on 01/27/19 20:26; Admin Dose 10 MG; Start 01/27/19 at 21:00 Assessment/Plan Additional Assessment/Plan 1. Rehabilitation status post acute right hip fracture ORIF PWB, SLOW GAINS CONT THERAPEUTIC INTERVENTIONS, ASA SCDS 2. Coronary artery disease, currently stable. 3. Type 2 diabetes managed by primary. 4. Essential hypertension. 5. Hyperlipidemia. 6. Evidence of iron deficiency anemia. Will defer to primary team to prescribe iron, which has been described as ferrous gluconate.F/U NAZ CHAVIS MD Jan 28, 2019 08:07
[2019-01-28] MEDS: HYDROCODONE/APAP (5/325) TAB PO PRN ×2 (08:14→21:42)
[2019-01-28] MEDS: ASPIRIN 81 MG TAB PO SCH (10:54)
[2019-01-28] MEDS: DONEPEZIL 10 MG TAB PO SCH (10:54)
[2019-01-28] MEDS: DOCUSATE SODIUM 100 MG CAP PO SCH ×2 (10:55→21:41)
[2019-01-28] MEDS: FUROSEMIDE 20 MG TAB PO SCH (10:56)
[2019-01-28] MEDS: SACUBITRIL/VALSARTAN (24mg-26mg) TABLET PO SCH ×2 (10:56→21:41)
[2019-01-28] MEDS: METOPROLOL 25 MG TAB PO SCH ×2 (10:57→21:42)
[2019-01-28] MEDS: MEMANTINE 10 MG TAB PO SCH ×2 (10:57→21:41)
[2019-01-28] MEDS: ENOXAPARIN 30 MG/0.3 ML SYG SC SCH (11:05)
[2019-01-28] MEDS: HYDROmorphONE 0.5 MG/0.5 ML SYG IV PRN ×2 (11:12→17:30)
[2019-01-28] MEDS: SOD FERRIC GLUC COMPLX 125 MG in SOD CHLORIDE 0.9% 100 ML IVPB SCH (13:14)
[2019-01-28 14:00] VITALS: BP 110/58; PULSE 65; RESP 18
--- NOTE | 2019-01-28 15:03 | PN ---
Date/Time of Note Date/Time of Note DATE: 01/28/19 TIME: 15:01 Assessment/Plan VTE Prophylaxis Risk score (from Ns)>0 risk: 10 SCD applied (from Ns): Yes Pharmacological prophylaxis: LMWH Lines/Catheters IV Catheter Type (from Nrs): [place] Urinary Cath still in place: No Assessment/Plan Hospital Course SUBJECTIVE: Overall, doing well. Participating with physical therapy. OBJECTIVE: Vital signs-see below PHYSICAL EXAM: Constitutional: Elderly female,not in acute distress. HEENT: Head atraumatic and normocephalic. Eyes: Extraocular muscles intact. Anicteric sclerae. Pupils equal bilaterally, reactive to light. NECK: Supple without lymph node. CHEST: Clear and good breath sounds equally. No wheezing. No rhonchi. HEART: S1, S2. Regular rate and rhythm. ABDOMEN: Soft/non tender with no rebound tenderness. Bowel sounds were present. EXTREMITIES: RLE surgical dressing c/d/i. no cyanosis, clubbing or edema. NEUROLOGIC: Alert and oriented x3. No focal deficit. No sensory deficit. PSYCHOSOCIAL: No signs of depression. INTEGUMENTARY: No open wounds. ASSESSMENT AND PLAN: Acute right hip fracture -s/p medullary pinning by Dr. Lara on 01/22. -dvt ppx,pain control,pt/rehab. Coronary artery disease: History of CABG. - Resume aspirin, beta-blockers as tolerated -cont. statin CHF/Cardiomyopathy -clinically stable-latest ef 40% -Tolerating home medicines. At this time, will increase her beta-marivel dose to 25 mg twice daily. Will resume Aldactone at a lower dose 25 mg daily. Continue Entresto and Lasix. Acute on chronic irin deficient anemia -on ferrlicitx3 doses-then transition to po Hypertension -Tolerating antihypertensives now. Will slowly adjust cardiac meds dosing to her outpatient regimen. Hyperlipidemia - Continue statin Dementia - Continue Aricept/ Namenda Hypothyroidism -On Synthroid UTI -Ciprox5 days DVT GI prophylaxis: LOVENOX Patient was seen in collaboration with Result Diagram: 01/26/1962201/26/19 06 Exam/Review of Systems Exam Vitals Vital Signs Date Temp Pulse Resp B/P (MAP) Pulse Ox O2 O2 Flow FiO2 Time Delivery Rate 01/28/19 97.9 82 18 131/60 93 Room Air 07:00 (83) 01/27/19 2.0 22:00 Intake and Output 01/27/19 01/27/19 01/28/19 1515:00 23:00 07:00 IntakeIntake Total 100 ml 1680 ml OutputOutput Total 800 ml BalanceBalance 100 ml 880 ml Medications Medication Current Medications Docusate Sodium (Colace) 100 mg BID PO Last administered on 01/28/19 10:55; Admin Dose 100 MG; Start 01/25/19 at 21:00 Senna (Senokot) 1 tab HS PO Last administered on 01/27/19 20:26; Admin Dose 1 TAB; Start 01/25/19 at 21:00 Magnesium Hydroxide (Milk Of Mag) 30 ml BID PRN PO CONSTIPATION; Start 01/25/19 at 15:00 Lactulose (Enulose) 20 gm DAILY PRN PO CONSTIPATION; Start 01/25/19 at 15:00 Bisacodyl (Dulcolax Supp) 10 mg DAILY PRN [place] CONSTIPATION; Start 01/25/19 at 15:00 Acetaminophen (Tylenol Tab) 650 mg Q4H PRN PO PAIN; Start 01/25/19 at 15:00 Miscellaneous Information ([facility]) This patient cruz... PRN PRN XX WOUND CARE; Start 01/25/19 at 15:00 Albuterol (Ventolin Hfa) 2 puff Q4H RESP THERAPY PRN INH SHORTNESS OF BREATH; Start 01/25/19 at 15:00 Aspirin (Aspirin) 81 mg DAILY PO Last administered on 01/28/19at 10:54; Admin Dose 81 MG; Start 01/26/19 at 09:00 Diphenhydramine HCl (Benadryl) 25 mg Q4 PRN IV itching; Start 01/25/19 at 15:00 Donepezil HCl (Aricept) 10 mg DAILY PO Last administered on 01/28/19at 10:54; Admin Dose 10 MG; Start 01/26/19 at 09:00 Enoxaparin Sodium (Lovenox) 30 mg DAILY SC Last administered on 01/28/19at 11:05; Admin Dose 30 MG; Start 01/26/19 at 09:00 Acetaminophen/ Hydrocodone Bitart ([place] (5/325)) 1 tab Q4H PRN PO MODERATE PAIN LEVEL 4-6 Last administered on 01/28/19 08:14; Admin Dose 1 TAB; Start 01/25/19 at 15:00 Hydromorphone HCl (Dilaudid) 0.5 mg Q2 PRN IV SEVERE PAIN LEVEL 7-10 Last administered on 01/28/19 11:12; Admin Dose 0.5 MG; Start 01/25/19 at 15:00 Levothyroxine Sodium (Synthroid) 75 mcg DAILY@06 PO Last administered on 05:57; Admin Dose 75 MCG; Start 01/26/19 at 06:00 Naloxone HCl (Narcan) 0.2 mg Q2M PRN IV OD; Start 01/25/19 at 15:00 Ondansetron HCl (Zofran Inj) 4 mg Q6H PRN IV NAUSEA AND/OR VOMITING Last a dministered on 01/27/19 12:39; Admin Dose 4 MG; Start 01/25/19 at 15:00 Pantoprazole (Protonix Tab) 40 mg DAILY@06 PO Last administered on 01/28/19 05:57; Admin Dose 40 MG; Start 01/26/19 at 06:00 Metoprolol Tartrate (Lopressor) 25 mg DAILY PO Last administered on 01/28/19 10:57; Admin Dose 25 MG; Start 01/27/19 at 09:00 Ferric Sodium Gluconate Complex 125 mg/Sodium Chloride 100 ml @ 100 mls/hr DA [place]@1300 IVPB Last administered on 01/28/19 13:14; Admin Dose 100 MLS/HR; Start 01/27/19 at 13:00; Stop 01/29/19 at 13:59 Ciprofloxacin (Cipro) 500 mg BID@06,18 PO Last administered on 01/28/19 05:57; Admin Dose 500 MG; Start 01/27/19 at 18:00; Stop 02/01/19 at 17:59 Sacubitril/ Valsartan (Entresto 24 Mg-26 Mg) 1 tab BID PO Last administered on 01/28/19 10:56; Admin Dose 1 TAB; Start 01/27/19 at 21:00 Atorvastatin Calcium (Lipitor) 10 mg HS PO Last administered on 01/27/19 20:26; Admin Dose 10 MG; Start 01/27/19 at 21:00 Furosemide (Lasix) 20 mg DAILY PO Last administered on 01/28/19at 10:56; Admin Dose 20 MG; Start 01/27/19 at 13:00 Memantine (Namenda) 10 mg BID PO Last administered on 01/28/19at 10:57; Admin Dose 10 MG; Start 01/27/19 at 21:00 JAMES RUEDA NP Jan 28, 2019 15:03
[2019-01-28] MEDS: SPIRONOLACTONE 25 MG TAB PO SCH (16:27)
[2019-01-28 19:51] VITALS: BP 122/62; PULSE 77; RESP 18
[2019-01-28] MEDS: SENNA TAB PO SCH (21:41)
[2019-01-28] MEDS: ATORVASTATIN 10 MG TAB PO SCH (21:41)
[2019-01-29 02:00] VITALS: BP 118/60; PULSE 82; RESP 18
[2019-01-29] MEDS: PANTOPRAZOLE (EC) 40 MG TAB PO SCH (06:21)
[2019-01-29] MEDS: LEVOTHYROXINE 75 MCG TAB PO SCH (06:21)
[2019-01-29] MEDS: SPIRONOLACTONE 25 MG TAB PO SCH (06:21)
[2019-01-29] MEDS: CIPROFLOXACIN 500 MG TAB PO SCH ×2 (06:21→19:10)
[2019-01-29 07:30] VITALS: BP 133/60; PULSE 72; RESP 18
[2019-01-29] MEDS: HYDROmorphONE 0.5 MG/0.5 ML SYG IV PRN ×4 (07:47→15:18)
[2019-01-29] MEDS: ENOXAPARIN 30 MG/0.3 ML SYG SC SCH (07:50)
--- NOTE | 2019-01-29 09:18 | PN ---
Date/Time of Note Date/Time of Note DATE: 01/29/19 TIME: 09:16 Subjective AWAKE ALERT, NO NEW C/O Objective Vital Signs Date Temp Pulse Resp B/P (MAP) Pulse Ox O2 O2 Flow FiO2 Time Delivery Rate 01/29/19 97.8 72 18 133/60 94 Room Air 07:30 (84) 01/28/19 2.0 20:00 Intake and Output 01/28/19 01/28/19 01/29/19 1414:59 22:59 06:59 IntakeIntake Total 1300 ml 850 ml OutputOutput Total 800 ml BalanceBalance 500 ml 850 ml Exam LUNGS CTA COR RRR - EDEMA , - HOMANS CLOF BED MOB, XT AND GAIT MAX A Results/Medications Result Diagram: 01/29/1934 01/29/19 0634 Results 24 hrs Laboratory Tests Test 01/29/19 06:34 White Blood Count 9.4 # Red Blood Count 3.05 L Hemoglobin 8.7 L Hematocrit 26.9 L Mean Corpuscular Volume 88.2 Mean Corpuscular Hemoglobin 28.5 L Mean Corpuscular Hemoglobin Concent 32.3 Red Cell Distribution Width 13.9 Platelet Count 342 # Mean Platelet Volume 10.1 Immature Granulocytes % 3.800 H Neutrophils % 63.7 Lymphocytes % 18.6 Monocytes % 10.4 Eosinophils % 3.2 Basophils % 0.3 Nucleated Red Blood Cells % 0.0 Immature Granulocytes # 0.360 H Neutrophils # 6.0 Lymphocytes # 1.8 Monocytes # 1.0 H Eosinophils # 0.3 Basophils # 0.0 Nucleated Red Blood Cells # 0.0 Sodium Level 135 Potassium Level 4.7 Chloride Level 101 Carbon Dioxide Level 29 Anion Gap 5 Blood Urea Nitrogen 26 H Creatinine 0.96 Est Glomerular Filtrat Rate mL/min Glucose Level 106 Calcium Level 8.4 Medications Current Medications Docusate Sodium (Colace) 100 mg BID PO Last administered on 01/28/19at 21:41; Admin Dose 100 MG; Start 01/25/19 at 21:00 Senna (Senokot) 1 tab HS PO Last administered on 01/28/19at 21:41; Admin Dose 1 TAB; Start 01/25/19 at 21:00 Magnesium Hydroxide (Milk Of Mag) 30 ml BID PRN PO CONSTIPATION; Start 01/25/19 at 15:00 Lactulose (Enulose) 20 gm DAILY PRN PO CONSTIPATION; Start 01/25/19 at 15:00 Bisacodyl (Dulcolax Supp) 10 mg DAILY PRN [place] CONSTIPATION; Start 01/25/19 at 15:00 Acetaminophen (Tylenol Tab) 650 mg Q4H PRN PO PAIN; Start 01/25/19 at 15:00 Miscellaneous Information (Pending [place] Order For Wound Care) This patient cruz... PRN PRN XX WOUND CARE; Start 01/25/19 at 15:00 Albuterol (Ventolin Hfa) 2 puff Q4H RESP THERAPY PRN INH SHORTNESS OF BREATH; Start 01/25/19 at 15:00 Aspirin (Aspirin) 81 mg DAILY PO Last administered on 01/28/19at 10:54; Admin Dose 81 MG; Start 01/26/19 at 09:00 Diphenhydramine HCl (Benadryl) 25 mg Q4 PRN IV itching; Start 01/25/19 at 15:00 Donepezil HCl (Aricept) 10 mg DAILY PO Last administered on 01/28/19at 10:54; Admin Dose 10 MG; Start 01/26/19 at 09:00 Enoxaparin Sodium (Lovenox) 30 mg DAILY SC Last administered on 01/29/19at 07:50; Admin Dose 30 MG; Start 01/26/19 at 09:00 Acetaminophen/ Hydrocodone Bitart ([place] (5/325)) 1 tab Q4H PRN PO MODERATE P AIN LEVEL 4-6 Last administered on 01/28/19at 21:42; Admin Dose 1 TAB; Start 01/25/19 at 15:00 Hydromorphone HCl (Dilaudid) 0.5 mg Q2 PRN IV SEVERE PAIN LEVEL 7-10 Last administered on 01/29/19at 07:47; Admin Dose 0.5 MG; Start 01/25/19 at 15:00 Levothyroxine Sodium (Synthroid) 75 mcg DAILY@06 PO Last administered on 01/29/19at 06:21; Admin Dose 75 MCG; Start 01/26/19 at 06:00 Naloxone HCl (Narcan) 0.2 mg Q2M PRN IV OD; Start 01/25/19 at 15:00 Ondansetron HCl (Zofran Inj) 4 mg Q6H PRN IV NAUSEA AND/OR VOMITING Last administered on 01/27/19 12:39; Admin Dose 4 MG; Start 01/25/19 at 15:00 Pantoprazole (Protonix Tab) 40 mg DAILY@06 PO Last administered on 01/29/19 06:21; Admin Dose 40 MG; Start 01/26/19 at 06:00 Ferric Sodium Gluconate Complex 125 mg/Sodium Chloride 100 ml @ 100 mls/hr DAILY@1300 IVPB Last administered on 01/28/19 13:14; Admin Dose 100 MLS/HR; Start 01/27/19 at 13:00; Stop 01/29/19 at 13:59 Ciprofloxacin (Cipro) 500 mg BID@06,18 PO Last administered on 01/29/19 06:21; Admin Dose 500 MG; Start 01/27/19 at 18:00; Stop 02/01/19 at 17:59 Sacubitril/ Valsartan (Entresto 24 Mg-26 Mg) 1 tab BID PO Last administered on 01/28/19 21:41; Admin Dose 1 TAB; Start 01/27/19 at 21:00 Atorvastatin Calcium (Lipitor) 10 mg HS PO Last administered on 01/28/19 21:41; Admin Dose 10 MG; Start 01/27/19 at 21:00 Furosemide (Lasix) 20 mg DAILY PO Last administered on 01/28/19 10:56; Admin Dose 20 MG; Start 01/27/19 at 13:00 Memantine (Namenda) 10 mg BID PO Last administered on 01/28/19 21:41; Admin Dose 10 MG; Start 01/27/19 at 21:00 Metoprolol Tartrate (Lopressor) 25 mg BID PO Last administered on 01/28/19 21:42; Admin Dose 25 MG; Start 01/28/19 at 21:00 Spironolactone (Aldactone) 25 mg DAILY@0600 PO Last administered on 01/29/19 06:21; Admin Dose 25 MG; Start 01/28/19 at 15:00 Assessment/Plan Additional Assessment/Plan 1. Rehabilitation status post acute right hip fracture ORIF PWB, SLOW GAINS CONT THERAPEUTIC INTERVENTIONS, ASA SCDS, LOVENOX 2. Coronary artery disease, currently stable. 3. Type 2 diabetes managed by primary. 4. Essential hypertension.ALDACTONE AND LOPRESSOR ADDED 5. Hyperlipidemia. 6. Evidence of iron deficiency anemia. Will defer to primary team to prescribe iron, which has been described as ferrous gluconate.H/H NAZ SANDOVAL MD Jan 29, 2019 09:18
[2019-01-29] MEDS: MEMANTINE 10 MG TAB PO SCH ×2 (09:21→20:58)
[2019-01-29] MEDS: DOCUSATE SODIUM 100 MG CAP PO SCH ×2 (09:21→20:58)
[2019-01-29] MEDS: SACUBITRIL/VALSARTAN (24mg-26mg) TABLET PO SCH ×2 (09:21→20:58)
[2019-01-29] MEDS: METOPROLOL 25 MG TAB PO SCH ×2 (09:23→20:58)
[2019-01-29] MEDS: FUROSEMIDE 20 MG TAB PO SCH (09:24)
[2019-01-29] MEDS: ASPIRIN 81 MG TAB PO SCH (09:24)
[2019-01-29] MEDS: DONEPEZIL 10 MG TAB PO SCH (10:05)
--- NOTE | 2019-01-29 13:53 | PN ---
Date/Time of Note Date/Time of Note DATE: 01/29/19 TIME: 13:53 Objective Vitals Vital Signs Date Temp Pulse Resp B/P (MAP) Pulse Ox O2 O2 Flow FiO2 Time Delivery Rate 01/29/19 Nasal 2.0 08:00 Cannula 01/29/19 97.8 72 18 133/60 94 07:30 (84) Intake and Output 01/28/19 01/28/19 01/29/19 1515:00 23:00 07:00 IntakeIntake Total 1300 ml 850 ml OutputOutput Total 800 ml BalanceBalance 500 ml 850 ml Results Result Diagram: 01/29/19 0634 01/29/19 0634 Medications Medications Current Medications Docusate Sodium (Colace) 100 mg BID PO Last administered on 01/29/19at 09:21; Admin Dose 100 MG; Start 01/25/19 at 21:00 Senna (Senokot) 1 tab HS PO Last administered on 01/28/19at 21:41; Admin Dose 1 TAB; Start 01/25/19 at 21:00 Magnesium Hydroxide (Milk Of Mag) 30 ml BID PRN PO CONSTIPATION; Start 01/25/19 at 15:00 Lactulose (Enulose) 20 gm DAILY PRN PO CONSTIPATION; Start 01/25/19 at 15:00 Bisacodyl (Dulcolax Supp) 10 mg DAILY PRN [place] CONSTIPATION; Start 01/25/19 at 15:00 Acetaminophen (Tylenol Tab) 650 mg Q4H PRN PO PAIN; Start 01/25/19 at 15:00 Miscellaneous Information (Pending [facility] Order For Wound Care) This patient cruz... PRN PRN XX WOUND CARE; Start 01/25/19 at 15:00 Albuterol (Ventolin Hfa) 2 puff Q4H RESP THERAPY PRN INH SHORTNESS OF BREATH; Start 01/25/19 at 15:00 Aspirin (Aspirin) 81 mg DAILY PO Last administered on 01/29/19at 09:24; Admin Dose 81 MG; Start 01/26/19 at 09:00 Diphenhydramine HCl (Benadryl) 25 mg Q4 PRN IV itching; Start 01/25/19 at 15:00 Donepezil HCl (Aricept) 10 mg DAILY PO Last administered on 01/29/19at 10:05; Admin Dose 10 MG; Start 01/26/19 at 09:00 Enoxaparin Sodium (Lovenox) 30 mg DAILY SC Last administered on 01/29/19at 07:50; Admin Dose 30 MG; Start 01/26/19 at 09:00 Acetaminophen/ Hydrocodone Bitart ([place] (5/325)) 1 tab Q4H PRN PO MODERATE PAIN LEVEL 4-6 Last administered on 01/28/19at 21:42; Admin Dose 1 TAB; Start 01/25/19 at 15:00 Hydromorphone HCl (Dilaudid) 0.5 mg Q2 PRN IV SEVERE PAIN LEVEL 7-10 Last administered on 01/29/19 12:18; Admin Dose 0.5 MG; Start 01/25/19 at 15:00 Levothyroxine Sodium (Synthroid) 75 mcg DAILY@06 PO Last administered on 01/29/19 at 06:21; Admin Dose 75 MCG; Start 01/26/19 at 06:00 Naloxone HCl (Narcan) 0.2 mg Q2M PRN IV OD; Start 01/25/19 at 15:00 Ondansetron HCl (Zofran Inj) 4 mg Q6H PRN IV NAUSEA AND/OR VOMITING Last admini stered on 01/27/19at 12:39; Admin Dose 4 MG; Start 01/25/19 at 15:00 Pantoprazole (Protonix Tab) 40 mg DAILY@06 PO Last administered on 01/29/19 06:21; Admin Dose 40 MG; Start 01/26/19 at 06:00 Ferric Sodium Gluconate Complex 125 mg/Sodium Chloride 100 ml @ 100 mls/hr DAILY@1300 IVPB Last administered on 01/28/19 13:14; Admin Dose 100 MLS/HR; Start 01/27/19 at 13:00; Stop 01/29/19 at 13:59 Ciprofloxacin (Cipro) 500 mg BID@06,18 PO Last administered on 01/29/19 06:21; Admin Dose 500 MG; Start 01/27/19 at 18:00; Stop 02/01/19 at 17:59 Sacubitril/ Valsartan (Entresto 24 Mg-26 Mg) 1 tab BID PO Last administered on 01/29/19 09:21; Admin Dose 1 TAB; Start 01/27/19 at 21:00 Atorvastatin Calcium (Lipitor) 10 mg HS PO Last administered on 01/28/19at 21:41; Admin Dose 10 MG; Start 01/27/19 at 21:00 Furosemide (Lasix) 20 mg DAILY PO Last administered on 01/29/19at 09:24; Admin Dose 20 MG; Start 01/27/19 at 13:00 Memantine (Namenda) 10 mg BID PO Last administered on 01/29/19at 09:21; Admin Dose 10 MG; Start 01/27/19 at 21:00 Metoprolol Tartrate (Lopressor) 25 mg BID PO Last administered on 01/29/19at 09:23; Admin Dose 25 MG; Start 01/28/19 at 21:00 Spironolactone (Aldactone) 25 mg DAILY@0600 PO Last administered on 01/29/19at 06:21; Admin Dose 25 MG; Start 01/28/19 at 15:00 Gabapentin (Neurontin) 300 mg TID PO ; Start 01/29/19 at 13:00 VTE Prophylaxis Risk score (from Ns)>0 risk: 11 SCD applied (from Ns): Yes Lines/Catheters IV Catheter Type: Hernandez in Place: No Assessment/Plan Hospital Course Subjective Patient still having a lot of pain and unable to participate with physical therapy at times Objective Physical exam General: Patient is laying in bed and answers questions appropriately Mentation: Patient is alert and oriented 4, Head: Normocephalic atraumatic Eyes: EOMI, pupils reactive to light Neck: Supple, nontender, midline Respiratory: Clear to auscultation bilaterally Cardiovascular: regular rate, no obvious murmurs Gastrointestinal: non-tender to palpation, bowel sounds heard. Neurological: Moves all extremities spontaneously Skin: No new skin lesions, surgical site bandaged, CDI Assessment/Plan Acute right hip fracture -s/p medullary pinning by Dr. Lara on 01/22. -dvt ppx,pain control,pt/rehab. -We will add gabapentin as patient is having excessive pain with physical therapy -Nursing staff will also contact orthopedic surgeon. Possible surgical complication versus normal progression of surgical recovery. Coronary artery disease: History of CABG. - Resume aspirin, beta-blockers as tolerated -cont. statin CHF/Cardiomyopathy -clinically stable-latest ef 40% -Tolerating home medicines. At this time, will increase her beta-marivel dose to 25 mg twice daily. Will resume Aldactone at a lower dose 25 mg daily. Continue Entresto and Lasix. Acute on chronic iron deficient anemia -on ferrlicitx3 doses-then transition to po Hypertension -Tolerating antihypertensives now. Will slowly adjust cardiac meds dosing to her outpatient regimen. Hyperlipidemia - Continue statin Dementia - Continue Aricept/ Namenda Hypothyroidism -On Synthroid UTI -Ciprox5 days total ALEXI DRISCOLL Jan 29, 2019 13:53
[2019-01-29 14:00] VITALS: BP 115/59; PULSE 68; RESP 18
[2019-01-29] MEDS: GABAPENTIN 300 MG CAP PO SCH ×2 (14:05→20:58)
[2019-01-29] MEDS: SOD FERRIC GLUC COMPLX 125 MG in SOD CHLORIDE 0.9% 100 ML IVPB SCH (14:05)
[2019-01-29] MEDS: HYDROCODONE/APAP (5/325) TAB PO PRN (19:16)
[2019-01-29 19:21] VITALS: BP 119/58; PULSE 75; RESP 18
[2019-01-29] MEDS: ATORVASTATIN 10 MG TAB PO SCH (20:58)
[2019-01-29] MEDS: SENNA TAB PO SCH (20:59)
[2019-01-30 02:00] VITALS: BP 125/62; PULSE 79; RESP 18
[2019-01-30] MEDS: CIPROFLOXACIN 500 MG TAB PO SCH ×2 (06:02→18:37)
[2019-01-30] MEDS: PANTOPRAZOLE (EC) 40 MG TAB PO SCH (06:02)
[2019-01-30] MEDS: SPIRONOLACTONE 25 MG TAB PO SCH (06:06)
[2019-01-30] MEDS: LEVOTHYROXINE 75 MCG TAB PO SCH (06:07)
[2019-01-30] MEDS: HYDROmorphONE 0.5 MG/0.5 ML SYG IV PRN ×4 (07:45→18:00)
[2019-01-30 08:00] VITALS: BP 138/68; PULSE 80; RESP 18
[2019-01-30] MEDS: GABAPENTIN 300 MG CAP PO SCH ×3 (10:42→20:41)
[2019-01-30] MEDS: DOCUSATE SODIUM 100 MG CAP PO SCH ×2 (10:42→20:40)
[2019-01-30] MEDS: SACUBITRIL/VALSARTAN (24mg-26mg) TABLET PO SCH ×2 (10:42→20:40)
[2019-01-30] MEDS: MEMANTINE 10 MG TAB PO SCH ×2 (10:44→20:41)
[2019-01-30] MEDS: METOPROLOL 25 MG TAB PO SCH ×2 (10:45→20:41)
[2019-01-30] MEDS: DONEPEZIL 10 MG TAB PO SCH (10:45)
[2019-01-30] MEDS: ASPIRIN 81 MG TAB PO SCH (10:45)
[2019-01-30] MEDS: FUROSEMIDE 20 MG TAB PO SCH (10:46)
--- NOTE | 2019-01-30 10:48 | PN ---
Date/Time of Note Date/Time of Note DATE: 01/30/19 TIME: 10:47 Objective Vitals Vital Signs Date Temp Pulse Resp B/P (MAP) Pulse Ox O2 O2 Flow FiO2 Time Delivery Rate 01/30/19 97.5 80 18 138/68 99 Room Air 08:00 (91) 01/29/19 2.0 21:00 Intake and Output 01/29/19 01/29/19 01/30/19 1515:00 23:00 07:00 IntakeIntake Total 960 ml 900 ml OutputOutput Total 200 ml BalanceBalance 960 ml 700 ml Results Result Diagram: 01/30/19 0612 01/30/19 0612 Medications Medications Current Medications Docusate Sodium (Colace) 100 mg BID PO Last administered on 01/30/19at 10:42; Admin Dose 100 MG; Start 01/25/19 at 21:00 Senna (Senokot) 1 tab HS PO Last administered on 01/29/19at 20:59; Admin Dose 1 TAB; Start 01/25/19 at 21:00 Magnesium Hydroxide (Milk Of Mag) 30 ml BID PRN PO CONSTIPATION; Start 01/25/19 at 15:00 Lactulose (Enulose) 20 gm DAILY PRN PO CONSTIPATION; Start 01/25/19 at 15:00 Bisacodyl (Dulcolax Supp) 10 mg DAILY PRN [place] CONSTIPATION; Start 01/25/19 at 15:00 Acetaminophen (Tylenol Tab) 650 mg Q4H PRN PO PAIN; Start 01/25/19 at 15:00 Miscellaneous Information (Pending [facility] Order For Wound Care) This patient cruz... PRN PRN XX WOUND CARE; Start 01/25/19 at 15:00 Albuterol (Ventolin Hfa) 2 puff Q4H RESP THERAPY PRN INH SHORTNESS OF BREATH; Start 01/25/19 at 15:00 Aspirin (Aspirin) 81 mg DAILY PO Last administered on 01/29/19at 09:24; Admin Dose 81 MG; Start 01/26/19 at 09:00 Diphenhydramine HCl (Benadryl) 25 mg Q4 PRN IV itching; Start 01/25/19 at 15:00 Donepezil HCl (Aricept) 10 mg DAILY PO Last administered on 01/29/19at 10:05; Admin Dose 10 MG; Start 01/26/19 at 09:00 Enoxaparin Sodium (Lovenox) 30 mg DAILY SC Last administered on 01/29/19 07:50; Admin Dose 30 MG; Start 01/26/19 at 09:00 Acetaminophen/ Hydrocodone Bitart ([place] (5/325)) 1 tab Q4H PRN PO MODERATE PAIN LEVEL 4-6 Last administered on 01/29/19 19:16; Admin Dose 1 TAB; Start 01/25/19 at 15:00 Hydromorphone HCl (Dilaudid) 0.5 mg Q2 PRN IV SEVERE PAIN LEVEL 7-10 Last administered on 01/30/19 10:40; Admin Dose 0.5 MG; Start 01/25/19 at 15:00 Levothyroxine Sodium (Synthroid) 75 mcg DAILY@06 PO Last administered on 01/30/19 06:07; Admin Dose 75 MCG; Start 01/26/19 at 06:00 Naloxone HCl (Narcan) 0.2 mg Q2M PRN IV OD; Start 01/25/19 at 15:00 Ondansetron HCl (Zofran Inj) 4 mg Q6H PRN IV NAUSEA AND/OR VOMITING Last administered on 01/27/19 12:39; Admin Dose 4 MG; Start 01/25/19 at 15:00 Pantoprazole (Protonix Tab) 40 mg DAILY@06 PO Last administered on 01/30/19 06:02; Admin Dose 40 MG; Start 01/26/19 at 06:00 Ciprofloxacin (Cipro) 500 mg BID@06,18 PO Last administered on 01/30/19 06:02; Admin Dose 500 MG; Start 01/27/19 at 18:00; Stop 02/01/19 at 17:59 Sacubitril/ Valsartan (Entresto 24 Mg-26 Mg) 1 tab BID PO Last administered on 01/30/19 10:42; Admin Dose 1 TAB; Start 01/27/19 at 21:00 Atorvastatin Calcium (Lipitor) 10 mg HS PO Last administered on 01/29/19 20:58; Admin Dose 10 MG; Start 01/27/19 at 21:00 Furosemide (Lasix) 20 mg DAILY PO Last administered on 01/29/19 09:24; Admin Dose 20 MG; Start 01/27/19 at 13:00 Memantine (Namenda) 10 mg BID PO Last administered on 01/29/19at 20:58; Admin Dose 10 MG; Start 01/27/19 at 21:00 Metoprolol Tartrate (Lopressor) 25 mg BID PO Last administered on 01/29/19at 20:58; Admin Dose 25 MG; Start 01/28/19 at 21:00 Spironolactone (Aldactone) 25 mg DAILY@0600 PO Last administered on 01/30/19at 06:06; Admin Dose 25 MG; Start 01/28/19 at 15:00 Gabapentin (Neurontin) 300 mg TID PO Last administered on 01/30/19 10:42; Admin Dose 300 MG; Start 01/29/19 at 13:00 VTE Prophylaxis Risk score (from Ns)>0 risk: 11 SCD applied (from [facility]): Yes Lines/Catheters IV Catheter Type: Hernandez in Place: No Assessment/Plan Hospital Course Subjective Patient pain has slightly improved Objective Physical exam General: Patient is laying in bed and answers questions appropriately Mentation: Patient is alert and oriented 4, Head: Normocephalic atraumatic Eyes: EOMI, pupils reactive to light Neck: Supple, nontender, midline Respiratory: Clear to auscultation bilaterally Cardiovascular: regular rate, no obvious murmurs Gastrointestinal: non-tender to palpation, bowel sounds heard. Neurological: Moves all extremities spontaneously Skin: No new skin lesions, surgical site bandaged, CDI Assessment/Plan Acute right hip fracture -s/p medullary pinning by Dr. Lara on 01/22. -dvt ppx,pain control,pt/rehab. -We will add gabapentin as patient is having excessive pain with physical therapy -Dr. Lara was contacted by nursing staff due to family concerns regarding magdy very, Dr. Lara explained to the nurse to convey to the family that this was a large surgery and will take longer to heal. Coronary artery disease: History of CABG. - Resume aspirin, beta-blockers as tolerated -cont. statin CHF/Cardiomyopathy -clinically stable-latest ef 40% -Tolerating home medicines. At this time, will increase her beta-marivel dose to 25 mg twice daily. Will resume Aldactone at a lower dose 25 mg daily. Continue Entresto and Lasix. Acute on chronic iron deficient anemia -on ferrlicitx3 doses-then transition to po Hypertension -Tolerating antihypertensives now. Will slowly adjust cardiac meds dosing to her outpatient regimen. Hyperlipidemia - Continue statin Dementia - Continue Aricept/ Namenda Hypothyroidism -On Synthroid UTI -Ciprox5 days total ALEXI DRISCOLL Jan 30, 2019 10:48
[2019-01-30] MEDS: ENOXAPARIN 30 MG/0.3 ML SYG SC SCH (10:58)
[2019-01-30 14:00] VITALS: BP 138/78; PULSE 78; RESP 18
[2019-01-30 20:00] VITALS: BP 113/55; PULSE 71; RESP 18
[2019-01-30] MEDS: ATORVASTATIN 10 MG TAB PO SCH (20:40)
[2019-01-30] MEDS: SENNA TAB PO SCH (20:41)
[2019-01-31 01:48] VITALS: BP 116/58; PULSE 72; RESP 18
[2019-01-31] MEDS: HYDROmorphONE 0.5 MG/0.5 ML SYG IV PRN ×2 (03:32→11:55)
[2019-01-31] MEDS: LEVOTHYROXINE 75 MCG TAB PO SCH (06:34)
[2019-01-31] MEDS: PANTOPRAZOLE (EC) 40 MG TAB PO SCH (06:34)
[2019-01-31] MEDS: SPIRONOLACTONE 25 MG TAB PO SCH (06:34)
[2019-01-31] MEDS: CIPROFLOXACIN 500 MG TAB PO SCH ×2 (06:34→17:53)
[2019-01-31 07:00] VITALS: BP 113/57; PULSE 70; RESP 18
[2019-01-31] MEDS: HYDROCODONE/APAP (5/325) TAB PO PRN ×3 (10:01→20:56)
[2019-01-31] MEDS: MEMANTINE 10 MG TAB PO SCH ×2 (10:02→20:56)
[2019-01-31] MEDS: DONEPEZIL 10 MG TAB PO SCH (10:02)
[2019-01-31] MEDS: METOPROLOL 25 MG TAB PO SCH ×2 (10:02→21:00)
[2019-01-31] MEDS: ASPIRIN 81 MG TAB PO SCH (10:02)
[2019-01-31] MEDS: DOCUSATE SODIUM 100 MG CAP PO SCH ×2 (10:03→20:55)
[2019-01-31] MEDS: FUROSEMIDE 20 MG TAB PO SCH (10:03)
[2019-01-31] MEDS: GABAPENTIN 300 MG CAP PO SCH ×3 (10:03→20:53)
[2019-01-31] MEDS: SACUBITRIL/VALSARTAN (24mg-26mg) TABLET PO SCH ×2 (10:05→20:56)
[2019-01-31] MEDS: ENOXAPARIN 30 MG/0.3 ML SYG SC SCH (10:56)
[2019-01-31 14:00] VITALS: BP 94/44; PULSE 67; RESP 18
--- NOTE | 2019-01-31 14:18 | PN ---
Date/Time of Note Date/Time of Note DATE: 01/31/19 TIME: 14:16 Objective Vital Signs Date Temp Pulse Resp B/P (MAP) Pulse Ox O2 O2 Flow FiO2 Time Delivery Rate 01/31/19 98.1 70 18 113/57 92 Room Air 07:00 (75) 01/30/19 2.0 21:00 Intake and Output 01/30/19 01/30/19 01/31/19 1515:00 23:00 07:00 IntakeIntake Total 800 ml 200 ml OutputOutput Total 500 ml 550 ml BalanceBalance 300 ml -350 ml Exam INTERDISCIPLINARY TEAM CONFERENCE Attended by PT, OT, ST, Truck Driver Helper, Social Work, Rehabilitation Nursing, Rock Drill Operator and Nurses AidePolice Patrol Lieutenant Exam: Pulm- cta Abd-soft BOWEL- Cont BLADDER-Cont SKIN- improving OT- DRESSING- mod BATHING- mod TOILETING- mod PT- BED MOBILITY- mod TRANSFERS- mod AMBULATION- mod 15 feet A/P- Interdisciplinary team conference held today. Please see interdisciplinary sheet. Working toward d.c. on 02/09 with post discharge follow up of physical therapy, occupational therapy. Results/Medications Result Diagram: 01/31/19 0640 01/31/19 0640 Results 24 hrs Laboratory Tests Test 01/31/19 06:40 White Blood Count 10.1 Red Blood Count 2.76 L Hemoglobin 8.1 L Hematocrit 25.2 L Mean Corpuscular Volume 91.3 Mean Corpuscular Hemoglobin 29.3 Mean Corpuscular Hemoglobin Concent 32.1 Red Cell Distribution Width 14.2 Platelet Count 452 H Mean Platelet Volume 9.7 Immature Granulocytes % 5.200 H Neutrophils % Segmented Neutrophils % (Manual) 61 Band Neutrophils % (Manual) 5 H Lymphocytes % Lymphocytes % (Manual) 18 Monocytes % Monocytes % (Manual) 7 Eosinophils % Eosinophils % (Manual) 5 Basophils % Myelocytes % (Manual) 4 H Nucleated Red Blood Cells % 1 H Immature Granulocytes # 0.530 H Neutrophils # Neutrophils # (Manual) 6.2 Band Neutrophils # 0.5 Lymphocytes (Manual) 1.8 Lymphocytes # Monocytes # Monocytes # (Manual) 0.7 Eosinophils # Basophils # Myelocytes # 0.4 H Nucleated Red Blood Cells # Platelet Estimate NORMAL Giant Platelets 1 H Polychromasia 3+ Anisocytosis 1+ Microcytosis 1+ Sodium Level 137 Potassium Level 5.2 H Chloride Level 103 Carbon Dioxide Level 30 Anion Gap 4 L Blood Urea Nitrogen 34 H Creatinine 1.08 H Est Glomerular Filtrat Rate mL/min Glucose Level 104 Calcium Level 8.3 L Phosphorus Level 3.9 Magnesium Level 1.9 Medications Current Medications Docusate Sodium (Colace) 100 mg BID PO Last administered on 01/31/19 10:03; Admin Dose 100 MG; Start 01/25/19 at 21:00 Senna (Senokot) 1 tab HS PO Last administered on 01/30/19 20:41; Admin Dose 1 TAB; Start 01/25/19 at 21:00 Magnesium Hydroxide (Milk Of Mag) 30 ml BID PRN PO CONSTIPATION; Start 01/25/19 at 15:00 Lactulose (Enulose) 20 gm DAILY PRN PO CONSTIPATION; Start 01/25/19 at 15:00 Bisacodyl (Dulcolax Supp) 10 mg DAILY PRN [place] CONSTIPATION; Start 01/25/19 at 15:00 Acetaminophen (Tylenol Tab) 650 mg Q4H PRN PO PAIN; Start 01/25/19 at 15:00 Miscellaneous Information (Pending [facility] Order For Wound Care) This patient cruz... PRN PRN XX WOUND CARE; Start 01/25/19 at 15:00 Albuterol (Ventolin Hfa) 2 puff Q4H RESP THERAPY PRN INH SHORTNESS OF BREATH; Start 01/25/19 at 15:00 Aspirin (Aspirin) 81 mg DAILY PO Last administered on 01/31/19 10:02; Admin Dose 81 MG; Start 01/26/19 at 09:00 Diphenhydramine HCl (Benadryl) 25 mg Q4 PRN IV itching; Start 01/25/19 at 15:00 Donepezil HCl (Aricept) 10 mg DAILY PO Last administered on 01/31/19 10:02; Admin Dose 10 MG; Start 01/26/19 at 09:00 Enoxaparin Sodium (Lovenox) 30 mg DAILY SC Last administered on 01/31/19 10:56; Admin Dose 30 MG; Start 01/26/19 at 09:00 Acetaminophen/ Hydrocodone Bitart ([place] (5/325)) 1 tab Q4H PRN PO MODERATE PAIN LEVEL 4-6 Last administered on 01/31/19 14:00; Admin Dose 1 TAB; Start 01/25/19 at 15:00 Hydromorphone HCl (Dilaudid) 0.5 mg Q2 PRN IV SEVERE PAIN LEVEL 7-10 Last administered on 01/31/19 03:32; Admin Dose 0.5 MG; Start 01/25/19 at 15:00 Levothyroxine Sodium (Synthroid) 75 mcg DAILY@06 PO Last administered on 01/31/19 06:34; Admin Dose 75 MCG; Start 01/26/19 at 06:00 Naloxone HCl (Narcan) 0.2 mg Q2M PRN IV OD; Start 01/25/19 at 15:00 Ondansetron HCl (Zofran Inj) 4 mg Q6H PRN IV NAUSEA AND/OR VOMITING Last administered on 01/27/19 12:39; Admin Dose 4 MG; Start 01/25/19 at 15:00 Pantoprazole (Protonix Tab) 40 mg DAILY@06 PO Last administered on 01/31/19 06:34; Admin Dose 40 MG; Start 01/26/19 at 06:00 Ciprofloxacin (Cipro) 500 mg BID@06,18 PO Last administered on 01/31/19 06:34; Admin Dose 500 MG; Start 01/27/19 at 18:00; Stop 02/01/19 at 17:59 Sacubitril/ Valsartan (Entresto 24 Mg-26 Mg) 1 tab BID PO Last administered on 01/31/19 10:05; Admin Dose 1 TAB; Start 01/27/19 at 21:00 Atorvastatin Calcium (Lipitor) 10 mg HS PO Last administered on 01/30/19 20:40; Admin Dose 10 MG; Start 01/27/19 at 21:00 Furosemide (Lasix) 20 mg DAILY PO Last administered on 01/31/19 10:03; Admin Dose 20 MG; Start 01/27/19 at 13:00 Memantine (Namenda) 10 mg BID PO Last administered on 01/31/19 10:02; Admin Dose 10 MG; Start 01/27/19 at 21:00 Metoprolol Tartrate (Lopressor) 25 mg BID PO Last administered on 01/31/19 10:02; Admin Dose 25 MG; Start 01/28/19 at 21:00 Spironolactone (Aldactone) 25 mg DAILY@0600 PO Last administered on 01/31/19at 06:34; Admin Dose 25 MG; Start 01/28/19 at 15:00 Gabapentin (Neurontin) 300 mg TID PO Last administered on 01/31/19at 14:00; Admin Dose 300 MG; Start 01/29/19 at 13:00 DALIA LIANG MD Jan 31, 2019 14:18
--- NOTE | 2019-01-31 14:39 | PN ---
Date/Time of Note Date/Time of Note DATE: 01/31/19 TIME: 14:36 Assessment/Plan VTE Prophylaxis Risk score (from Ns)>0 risk: 11 SCD applied (from Ns): Yes Pharmacological prophylaxis: LMWH Lines/Catheters IV Catheter Type (from Nrs): [place] Lock Urinary Cath still in place: No Assessment/Plan Hospital Course SUBJECTIVE: No acute overnight episodes. OBJECTIVE: Vital signs-see below PHYSICAL EXAM: Constitutional: Elderly female,not in acute distress. HEENT: Head atraumatic and normocephalic. Eyes: Extraocular muscles intact. Anicteric sclerae. Pupils equal bilaterally, reactive to light. NECK: Supple without lymph node. CHEST: Clear and good breath sounds equally. No wheezing. No rhonchi. HEART: S1, S2. Regular rate and rhythm. ABDOMEN: Soft/non tender with no rebound tenderness. Bowel sounds were present. EXTREMITIES: RLE surgical dressing c/d/i. no cyanosis, clubbing or edema. NEUROLOGIC: Alert and oriented x3. No focal deficit. No sensory deficit. PSYCHOSOCIAL: No signs of depression. INTEGUMENTARY: No open wounds. ASSESSMENT AND PLAN: Acute right hip fracture -s/p medullary pinning by Dr. Lara on 01/22. -dvt ppx,pain control,pt/rehab. Coronary artery disease: History of CABG. -cont. aspirin, beta-blockers,statin CHF/Cardiomyopathy -clinically stable-latest ef 40% -on bb,aldactone,entresto,lasix Acute on chronic iron deficient anemia -s/p iv iron -start po [id number] Hypertension -Tolerating antihypertensives now. Will slowly adjust cardiac meds dosing to her outpatient regimen. Hyperlipidemia - Continue statin Dementia - Continue Aricept/ Namenda Hypothyroidism -On Synthroid UTI -s/p treatment DVT GI prophylaxis: LOVENOX Patient was seen in collaboration with Result Diagram: 01/31/19 0640 01/31/19 0640 Results 24hrs Laboratory Tests Test 01/31/19 06:40 White Blood Count 10.1 Red Blood Count 2.76 L Hemoglobin 8.1 L Hematocrit 25.2 L Mean Corpuscular Volume 91.3 Mean Corpuscular Hemoglobin 29.3 Mean Corpuscular Hemoglobin Concent 32.1 Red Cell Distribution Width 14.2 Platelet Count 452 H Mean Platelet Volume 9.7 Immature Granulocytes % 5.200 H Neutrophils % Segmented Neutrophils % (Manual) 61 Band Neutrophils % (Manual) 5 H Lymphocytes % Lymphocytes % (Manual) 18 Monocytes % Monocytes % (Manual) 7 Eosinophils % Eosinophils % (Manual) 5 Basophils % Myelocytes % (Manual) 4 H Nucleated Red Blood Cells % 1 H Immature Granulocytes # 0.530 H Neutrophils # Neutrophils # (Manual) 6.2 Band Neutrophils # 0.5 Lymphocytes (Manual) 1.8 Lymphocytes # Monocytes # Monocytes # (Manual) 0.7 Eosinophils # Basophils # Myelocytes # 0.4 H Nucleated Red Blood Cells # Platelet Estimate NORMAL Giant Platelets 1 H Polychromasia 3+ Anisocytosis 1+ Microcytosis 1+ Sodium Level 137 Potassium Level 5.2 H Chloride Level 103 Carbon Dioxide Level 30 Anion Gap 4 L Blood Urea Nitrogen 34 H Creatinine 1.08 H Est Glomerular Filtrat Rate mL/min Glucose Level 104 Calcium Level 8.3 L Phosphorus Level 3.9 Magnesium Level 1.9 Exam/Review of Systems Exam Vitals Vital Signs Date Temp Pulse Resp B/P (MAP) Pulse Ox O2 O2 Flow FiO2 Time Delivery Rate 01/31/19 98.1 70 18 113/57 92 Room Air 07:00 (75) 01/30/19 2.0 21:00 Intake and Output 01/30/19 01/30/19 01/31/19 1515:00 23:00 07:00 IntakeIntake Total 800 ml 200 ml OutputOutput Total 500 ml 550 ml BalanceBalance 300 ml -350 ml Results Results 24hrs Laboratory Tests Test 01/31/19 06:40 White Blood Count 10.1 Red Blood Count 2.76 L Hemoglobin 8.1 L Hematocrit 25.2 L Mean Corpuscular Volume 91.3 Mean Corpuscular Hemoglobin 29.3 Mean Corpuscular Hemoglobin Concent 32.1 Red Cell Distribution Width 14.2 Platelet Count 452 H Mean Platelet Volume 9.7 Immature Granulocytes % 5.200 H Neutrophils % Segmented Neutrophils % (Manual) 61 Band Neutrophils % (Manual) 5 H Lymphocytes % Lymphocytes % (Manual) 18 Monocytes % Monocytes % (Manual) 7 Eosinophils % Eosinophils % (Manual) 5 Basophils % Myelocytes % (Manual) 4 H Nucleated Red Blood Cells % 1 H Immature Granulocytes # 0.530 H Neutrophils # Neutrophils # (Manual) 6.2 Band Neutrophils # 0.5 Lymphocytes (Manual) 1.8 Lymphocytes # Monocytes # Monocytes # (Manual) 0.7 Eosinophils # Basophils # Myelocytes # 0.4 H Nucleated Red Blood Cells # Platelet Estimate NORMAL Giant Platelets 1 H Polychromasia 3+ Anisocytosis 1+ Microcytosis 1+ Sodium Level 137 Potassium Level 5.2 H Chloride Level 103 Carbon Dioxide Level 30 Anion Gap 4 L Blood Urea Nitrogen 34 H Creatinine 1.08 H Est Glomerular Filtrat Rate mL/min Glucose Level 104 Calcium Level 8.3 L Phosphorus Level 3.9 Magnesium Level 1.9 Medications Medication Current Medications Docusate Sodium (Colace) 100 mg BID PO Last administered on 01/31/19 10:03; Admin Dose 100 MG; Start 01/25/19 at 21:00 Senna (Senokot) 1 tab HS PO Last administered on 01/30/19 20:41; Admin Dose 1 TAB; Start 01/25/19 at 21:00 Magnesium Hydroxide (Milk Of Mag) 30 ml BID PRN PO CONSTIPATION; Start 01/25/19 at 15:00 Lactulose (Enulose) 20 gm DAILY PRN PO CONSTIPATION; Start 01/25/19 at 15:00 Bisacodyl (Dulcolax Supp) 10 mg DAILY PRN [place] CONSTIPATION; Start 01/25/19 at 15:00 Acetaminophen (Tylenol Tab) 650 mg Q4H PRN PO PAIN; Start 01/25/19 at 15:00 Miscellaneous Information (Pending [facility] Order For Wound Care) This patient cruz... PRN PRN XX WOUND CARE; Start 01/25/19 at 15:00 Albuterol (Ventolin Hfa) 2 puff Q4H RESP THERAPY PRN INH SHORTNESS OF BREATH; Start 01/25/19 at 15:00 Aspirin (Aspirin) 81 mg DAILY PO Last administered on 01/31/19 10:02; Admin Dose 81 MG; Start 01/26/19 at 09:00 Diphenhydramine HCl (Benadryl) 25 mg Q4 PRN IV itching; Start 01/25/19 at 15:00 Donepezil HCl (Aricept) 10 mg DAILY PO Last administered on 01/31/19 10:02; Admin Dose 10 MG; Start 01/26/19 at 09:00 Enoxaparin Sodium (Lovenox) 30 mg DAILY SC Last administered on 01/31/19 10:56; Admin Dose 30 MG; Start 01/26/19 at 09:00 Acetaminophen/ Hydrocodone Bitart ([place] (5/325)) 1 tab Q4H PRN PO MODERATE PAIN LEVEL 4-6 Last administered on 01/31/19 14:00; Admin Dose 1 TAB; Start 01/25/19 at 15:00 Hydromorphone HCl (Dilaudid) 0.5 mg Q2 PRN IV SEVERE PAIN LEVEL 7-10 Last administered on 01/31/19 03:32; Admin Dose 0.5 MG; Start 01/25/19 at 15:00 Levothyroxine Sodium (Synthroid) 75 mcg DAILY@06 PO Last administered on 01/31/19 06:34; Admin Dose 75 MCG; Start 01/26/19 at 06:00 Naloxone HCl (Narcan) 0.2 mg Q2M PRN IV OD; Start 01/25/19 at 15:00 Ondansetron HCl (Zofran Inj) 4 mg Q6H PRN IV NAUSEA AND/OR VOMITING Last administered on 01/27/19 12:39; Admin Dose 4 MG; Start 01/25/19 at 15:00 Pantoprazole (Protonix Tab) 40 mg DAILY@06 PO Last administered on 01/31/19 06:34; Admin Dose 40 MG; Start 01/26/19 at 06:00 Ciprofloxacin (Cipro) 500 mg BID@06,18 PO Last administered on 01/31/19 06:34; Admin Dose 500 MG; Start 01/27/19 at 18:00; Stop 02/01/19 at 17:59 Sacubitril/ Valsartan (Entresto 24 Mg-26 Mg) 1 tab BID PO Last administered on 01/31/19 10:05; Admin Dose 1 TAB; Start 01/27/19 at 21:00 Atorvastatin Calcium (Lipitor) 10 mg HS PO Last administered on 01/30/19 20:40; Admin Dose 10 MG; Start 01/27/19 at 21:00 Furosemide (Lasix) 20 mg DAILY PO Last administered on 01/31/19 10:03; Admin Dose 20 MG; Start 01/27/19 at 13:00 Memantine (Namenda) 10 mg BID PO Last administered on 01/31/19 10:02; Admin Dose 10 MG; Start 01/27/19 at 21:00 Metoprolol Tartrate (Lopressor) 25 mg BID PO Last administered on 01/31/19at 10:02; Admin Dose 25 MG; Start 01/28/19 at 21:00 Spironolactone (Aldactone) 25 mg DAILY@0600 PO Last administered on 01/31/19at 06:34; Admin Dose 25 MG; Start 01/28/19 at 15:00 Gabapentin (Neurontin) 300 mg TID PO Last administered on 01/31/19at 14:00; Admin Dose 300 MG; Start 01/29/19 at 13:00 JAMES RUEDA NP Jan 31, 2019 14:39
[2019-01-31] MEDS ORDERED: SODIUM POLYSTYRENE 15 GM KIT (POWDER + SORBITOL) PO ONE (15:00)
[2019-01-31 20:20] VITALS: BP 97/50; PULSE 69; RESP 18
[2019-01-31] MEDS: SENNA TAB PO SCH (20:53)
[2019-01-31] MEDS: ATORVASTATIN 10 MG TAB PO SCH (20:56)
[2019-02-01 02:19] VITALS: BP 122/57; PULSE 73; RESP 18
[2019-02-01] MEDS: PANTOPRAZOLE (EC) 40 MG TAB PO SCH (06:31)
[2019-02-01] MEDS: SPIRONOLACTONE 25 MG TAB PO SCH (06:31)
[2019-02-01] MEDS: LEVOTHYROXINE 75 MCG TAB PO SCH (06:31)
[2019-02-01] MEDS: CIPROFLOXACIN 500 MG TAB PO SCH (06:31)
[2019-02-01 07:30] VITALS: BP 107/53; PULSE 68; RESP 18
[2019-02-01] MEDS: HYDROCODONE/APAP (5/325) TAB PO PRN ×3 (07:42→21:01)
[2019-02-01] MEDS: METOPROLOL 25 MG TAB PO SCH ×2 (09:00→20:34)
[2019-02-01] MEDS: FUROSEMIDE 20 MG TAB PO SCH (09:00)
[2019-02-01] MEDS: SACUBITRIL/VALSARTAN (24mg-26mg) TABLET PO SCH ×2 (09:14→21:01)
[2019-02-01] MEDS: GABAPENTIN 300 MG CAP PO SCH ×3 (09:15→20:34)
[2019-02-01] MEDS: DONEPEZIL 10 MG TAB PO SCH (09:15)
[2019-02-01] MEDS: ASPIRIN 81 MG TAB PO SCH (09:16)
[2019-02-01] MEDS: DOCUSATE SODIUM 100 MG CAP PO SCH ×2 (09:16→20:34)
[2019-02-01] MEDS: ENOXAPARIN 30 MG/0.3 ML SYG SC SCH (09:23)
[2019-02-01] MEDS: MEMANTINE 10 MG TAB PO SCH ×2 (09:23→20:35)
--- NOTE | 2019-02-01 12:37 | PN ---
Date/Time of Note Date/Time of Note DATE: 02/01/19 TIME: 12:36 Subjective Comfortable Objective Vital Signs Date Temp Pulse Resp B/P (MAP) Pulse Ox O2 O2 Flow FiO2 Time Delivery Rate 02/01/19 97.7 68 18 107/53 93 Room Air 07:30 (71) 01/31/19 2.0 21:00 Intake and Output 01/31/19 01/31/19 02/01/19 1515:00 23:00 07:00 IntakeIntake Total 1400 ml 250 ml OutputOutput Total 900 ml 600 ml 850 ml BalanceBalance -900 ml 800 ml -600 ml Exam pulm-cta abd-soft mod transfer Results/Medications Result Diagram: 01/31/19 0640 02/01/19 0615 Results 24 hrs Laboratory Tests Test 02/01/19 06:15 Sodium Level 136 Potassium Level 4.8 Chloride Level 103 Carbon Dioxide Level 30 Anion Gap 3 L Blood Urea Nitrogen 41 H Creatinine 1.17 H Est Glomerular Filtrat Rate mL/min Glucose Level 103 Calcium Level 7.8 L Medications Current Medications Docusate Sodium (Colace) 100 mg BID PO Last administered on 02/01/19at 09:16; Admin Dose 100 MG; Start 01/25/19 at 21:00 Senna (Senokot) 1 tab HS PO Last administered on 01/31/19at 20:53; Admin Dose 1 TAB; Start 01/25/19 at 21:00 Magnesium Hydroxide (Milk Of Mag) 30 ml BID PRN PO CONSTIPATION; Start 01/25/19 at 15:00 Lactulose (Enulose) 20 gm DAILY PRN PO CONSTIPATION; Start 01/25/19 at 15:00 Bisacodyl (Dulcolax Supp) 10 mg DAILY PRN [place] CONSTIPATION; Start 01/25/19 at 15:00 Acetaminophen (Tylenol Tab) 650 mg Q4H PRN PO PAIN; Start 01/25/19 at 15:00 Miscellaneous Information (Pending [facility] Order For Wound Care) This patient cruz... PRN PRN XX WOUND CARE; Start 01/25/19 at 15:00 Albuterol (Ventolin Hfa) 2 puff Q4H RESP THERAPY PRN INH SHORTNESS OF BREATH; Start 01/25/19 at 15:00 Aspirin (Aspirin) 81 mg DAILY PO Last administered on 02/01/19at 09:16; Admin Dose 81 MG; Start 01/26/19 at 09:00 Diphenhydramine HCl (Benadryl) 25 mg Q4 PRN IV itching; Start 01/25/19 at 15:00 Donepezil HCl (Aricept) 10 mg DAILY PO Last administered on 02/01/19 09:15; Admin Dose 10 MG; Start 01/26/19 at 09:00 Enoxaparin Sodium (Lovenox) 30 mg DAILY SC Last administered on 02/01/19 09:23; Admin Dose 30 MG; Start 01/26/19 at 09:00 Acetaminophen/ Hydrocodone Bitart ([place] (5/325)) 1 tab Q4H PRN PO MODERATE PAIN LEVEL 4-6 Last administered on 02/01/19 12:06; Admin Dose 1 TAB; Start 01/25/19 at 15:00 Hydromorphone HCl (Dilaudid) 0.5 mg Q2 PRN IV SEVERE PAIN LEVEL 7-10 Last administered on 01/31/19 03:32; Admin Dose 0.5 MG; Start 01/25/19 at 15:00 Levothyroxine Sodium (Synthroid) 75 mcg DAILY@06 PO Last administered on 02/01/19 06:31; Admin Dose 75 MCG; Start 01/26/19 at 06:00 Naloxone HCl (Narcan) 0.2 mg Q2M PRN IV OD; Start 01/25/19 at 15:00 Ondansetron HCl (Zofran Inj) 4 mg Q6H PRN IV NAUSEA AND/OR VOMITING Last administered on 01/27/19 12:39; Admin Dose 4 MG; Start 01/25/19 at 15:00 Pantoprazole (Protonix Tab) 40 mg DAILY@06 PO Last administered on 02/01/19 06:31; Admin Dose 40 MG; Start 01/26/19 at 06:00 Ciprofloxacin (Cipro) 500 mg BID@06,18 PO Last administered on 02/01/19 06:31; Admin Dose 500 MG; Start 01/27/19 at 18:00; Stop 02/01/19 at 17:59 Sacubitril/ Valsartan (Entresto 24 Mg-26 Mg) 1 tab BID PO Last administered on 02/01/19 09:14; Admin Dose 1 TAB; Start 01/27/19 at 21:00 Atorvastatin Calcium (Lipitor) 10 mg HS PO Last administered on 01/31/19 20:56; Admin Dose 10 MG; Start 01/27/19 at 21:00 Furosemide (Lasix) 20 mg DAILY PO Last administered on 01/31/19 10:03; Admin Dose 20 MG; Start 01/27/19 at 13:00 Memantine (Namenda) 10 mg BID PO Last administered on 02/01/19 09:23; Admin Dose 10 MG; Start 01/27/19 at 21:00 Metoprolol Tartrate (Lopressor) 25 mg BID PO Last administered on 01/31/19 10:02; Admin Dose 25 MG; Start 01/28/19 at 21:00 Spironolactone (Aldactone) 25 mg DAILY@0600 PO Last administered on 02/01/19 06:31; Admin Dose 25 MG; Start 01/28/19 at 15:00 Gabapentin (Neurontin) 300 mg TID PO Last administered on 02/01/19 12:06; Admin Dose 300 MG; Start 01/29/19 at 13:00 Assessment/Plan Additional Assessment/Plan Rehabilitation-status post acute right hip fracture ORIF PWB, Continue rehab program Coronary artery disease, currently stable. Type 2 diabetes managed by primary. Essential hypertension Hyperlipidemia. anemia. DALIA LIANG MD Feb 01, 2019 12:37
--- NOTE | 2019-02-01 14:23 | PN ---
Date/Time of Note Date/Time of Note DATE: 02/01/19 TIME: 14:22 Assessment/Plan VTE Prophylaxis Risk score (from Ns)>0 risk: 11 SCD applied (from Ns): Yes Pharmacological prophylaxis: LMWH Lines/Catheters IV Catheter Type (from Nrsg): Saline Lock Urinary Cath still in place: No Assessment/Plan Hospital Course SUBJECTIVE: No acute overnight episodes. OBJECTIVE: Vital signs-see below PHYSICAL EXAM: Constitutional: Elderly female,not in acute distress. HEENT: Head atraumatic and normocephalic. Eyes: Extraocular muscles intact. Anicteric sclerae. Pupils equal bilaterally, reactive to light. NECK: Supple without lymph node. CHEST: Clear and good breath sounds equally. No wheezing. No rhonchi. HEART: S1, S2. Regular rate and rhythm. ABDOMEN: Soft/non tender with no rebound tenderness. Bowel sounds were present. EXTREMITIES: RLE surgical dressing c/d/i. no cyanosis, clubbing or edema. NEUROLOGIC: Alert and oriented x3. No focal deficit. No sensory deficit. PSYCHOSOCIAL: No signs of depression. INTEGUMENTARY: No open wounds. ASSESSMENT AND PLAN: Acute right hip fracture -s/p medullary pinning by Dr. Lara on 01/22. -dvt ppx,pain control,pt/rehab. Coronary artery disease: History of CABG. -cont. aspirin, beta-blockers,statin CHF/Cardiomyopathy -clinically stable-latest ef 40% -on bb,aldactone,entresto,lasix Acute on chronic iron deficient anemia -s/p iv iron -start po feso4 Hypertension -Tolerating antihypertensives now. Will slowly adjust cardiac meds dosing to her outpatient regimen. Hyperlipidemia - Continue statin Dementia - Continue Aricept/ Namenda Hypothyroidism -On Synthroid UTI -s/p treatment DVT GI prophylaxis: LOVENOX Patient was seen in collaboration with Result Diagram: 01/31/19 0640 02/01/19 0615 Results 24hrs Laboratory Tests Test 02/01/19 06:15 Sodium Level 136 Potassium Level 4.8 Chloride Level 103 Carbon Dioxide Level 30 Anion Gap 3 L Blood Urea Nitrogen 41 H Creatinine 1.17 H Est Glomerular Filtrat Rate mL/min Glucose Level 103 Calcium Level 7.8 L Exam/Review of Systems Exam Vitals Vital Signs Date Temp Pulse Resp B/P (MAP) Pulse Ox O2 O2 Flow FiO2 Time Delivery Rate 02/01/19 97.7 68 18 107/53 93 Room Air 07:30 (71) 01/31/19 2.0 21:00 Intake and Output 01/31/19 01/31/19 02/01/19 1515:00 23:00 07:00 IntakeIntake Total 1400 ml 250 ml OutputOutput Total 900 ml 600 ml 850 ml BalanceBalance -900 ml 800 ml -600 ml Results Results 24hrs Laboratory Tests Test 02/01/19 06:15 Sodium Level 136 Potassium Level 4.8 Chloride Level 103 Carbon Dioxide Level 30 Anion Gap 3 L Blood Urea Nitrogen 41 H Creatinine 1.17 H Est Glomerular Filtrat Rate mL/min Glucose Level 103 Calcium Level 7.8 L Medications Medication Current Medications Docusate Sodium (Colace) 100 mg BID PO Last administered on 02/01/19at 09:16; Admin Dose 100 MG; Start 01/25/19 at 21:00 Senna (Senokot) 1 tab HS PO Last administered on 01/31/19at 20:53; Admin Dose 1 TAB; Start 01/25/19 at 21:00 Magnesium Hydroxide (Milk Of Mag) 30 ml BID PRN PO CONSTIPATION; Start 01/25/19 at 15:00 Lactulose (Enulose) 20 gm DAILY PRN PO CONSTIPATION; Start 01/25/19 at 15:00 Bisacodyl (Dulcolax Supp) 10 mg DAILY PRN [place] CONSTIPATION; Start 01/25/19 at 15:00 Acetaminophen (Tylenol Tab) 650 mg Q4H PRN PO PAIN; Start 01/25/19 at 15:00 [facility] This patient cruz... PRN PRN XX WOUND CARE; Start 01/25/19 at 15:00 Albuterol (Ventolin Hfa) 2 puff Q4H RESP THERAPY PRN INH SHORTNESS OF BREATH; Start 01/25/19 at 15:00 Aspirin (Aspirin) 81 mg DAILY PO Last administered on 02/01/19at 09:16; Admin Dose 81 MG; Start 01/26/19 at 09:00 Diphenhydramine HCl (Benadryl) 25 mg Q4 PRN IV itching; Start 01/25/19 at 15:00 Donepezil HCl (Aricept) 10 mg DAILY PO Last administered on 02/01/19 09:15; Admin Dose 10 MG; Start 01/26/19 at 09:00 Enoxaparin Sodium (Lovenox) 30 mg DAILY SC Last administered on 02/01/19 09:23; Admin Dose 30 MG; Start 01/26/19 at 09:00 Acetaminophen/ Hydrocodone Bitart ([place] (5/325)) 1 tab Q4H PRN PO MODERATE VERA N LEVEL 4-6 Last administered on 02/01/19 12:06; Admin Dose 1 TAB; Start 01/25/19 at 15:00 Hydromorphone HCl (Dilaudid) 0.5 mg Q2 PRN IV SEVERE PAIN LEVEL 7-10 Last administered on 01/31/19 03:32; Admin Dose 0.5 MG; Start 01/25/19 at 15:00 Levothyroxine Sodium (Synthroid) 75 mcg DAILY@06 PO Last administered on 02/01/19 06:31; Admin Dose 75 MCG; Start 01/26/19 at 06:00 Naloxone HCl (Narcan) 0.2 mg Q2M PRN IV OD; Start 01/25/19 at 15:00 Ondansetron HCl (Zofran Inj) 4 mg Q6H PRN IV NAUSEA AND/OR VOMITING Last administered on 01/27/19 12:39; Admin Dose 4 MG; Start 01/25/19 at 15:00 Pantoprazole (Protonix Tab) 40 mg DAILY@06 PO Last administered on 02/01/19 06:31; Admin Dose 40 MG; Start 01/26/19 at 06:00 Ciprofloxacin (Cipro) 500 mg BID@06,18 PO Last administered on 02/01/19 06:31; Admin Dose 500 MG; Start 01/27/19 at 18:00; Stop 02/01/19 at 17:59 Sacubitril/ Valsartan (Entresto 24 Mg-26 Mg) 1 tab BID PO Last administered on 02/01/19 09:14; Admin Dose 1 TAB; Start 01/27/19 at 21:00 Atorvastatin Calcium (Lipitor) 10 mg HS PO Last administered on 01/31/19 20:56; Admin Dose 10 MG; Start 01/27/19 at 21:00 Furosemide (Lasix) 20 mg DAILY PO Last administered on 01/31/19 10:03; Admin Dose 20 MG; Start 01/27/19 at 13:00 Memantine (Namenda) 10 mg BID PO Last administered on 02/01/19 09:23; Admin Dose 10 MG; Start 01/27/19 at 21:00 Metoprolol Tartrate (Lopressor) 25 mg BID PO Last administered on 01/31/19 10:02; Admin Dose 25 MG; Start 01/28/19 at 21:00 Spironolactone (Aldactone) 25 mg DAILY@0600 PO Last administered on 02/01/19 06:31; Admin Dose 25 MG; Start 01/28/19 at 15:00 Gabapentin (Neurontin) 300 mg TID PO Last administered on 02/01/19 12:06; Admin Dose 300 MG; Start 01/29/19 at 13:00 JAMES RUEDA NP Feb 01, 2019 14:23
[2019-02-01 20:00] VITALS: BP 117/53; PULSE 79; RESP 18
[2019-02-01] MEDS: SENNA TAB PO SCH (20:34)
[2019-02-01] MEDS: ATORVASTATIN 10 MG TAB PO SCH (20:35)
[2019-02-02] VITALS (7 sets, daily range): BP systolic 91–118; BP diastolic 41–57; PULSE 67–76; RESP 18
[2019-02-02] MEDS: SPIRONOLACTONE 25 MG TAB PO SCH (06:32)
[2019-02-02] MEDS: PANTOPRAZOLE (EC) 40 MG TAB PO SCH (06:32)
[2019-02-02] MEDS: LEVOTHYROXINE 75 MCG TAB PO SCH (06:32)
[2019-02-02] MEDS: HYDROCODONE/APAP (5/325) TAB PO PRN ×3 (07:38→20:51)
[2019-02-02] MEDS: DOCUSATE SODIUM 100 MG CAP PO SCH ×2 (08:16→20:51)
[2019-02-02] MEDS: MEMANTINE 10 MG TAB PO SCH ×2 (08:16→20:51)
[2019-02-02] MEDS: FUROSEMIDE 20 MG TAB PO SCH (08:17)
[2019-02-02] MEDS: GABAPENTIN 300 MG CAP PO SCH ×3 (08:17→20:51)
[2019-02-02] MEDS: DONEPEZIL 10 MG TAB PO SCH (08:17)
[2019-02-02] MEDS: ASPIRIN 81 MG TAB PO SCH (08:17)
[2019-02-02] MEDS: ENOXAPARIN 30 MG/0.3 ML SYG SC SCH (08:23)
[2019-02-02] MEDS: SACUBITRIL/VALSARTAN (24mg-26mg) TABLET PO SCH ×2 (09:00→20:51)
[2019-02-02] MEDS: METOPROLOL 25 MG TAB PO SCH (09:00)
[2019-02-02] MEDS ORDERED: HYDROCODONE/APAP (5/325) TAB PO PRN (11:00)
--- NOTE | 2019-02-02 12:37 | PN ---
Date/Time of Note Date/Time of Note DATE: 02/02/19 TIME: 12:36 Subjective Improving activity tolerance Objective Vital Signs Date Temp Pulse Resp B/P (MAP) Pulse Ox O2 O2 Flow FiO2 Time Delivery Rate 02/02/19 70 101/41 09:30 (61) 02/02/19 98.1 18 99 Room Air 07:43 01/31/19 2.0 21:00 Intake and Output 02/01/19 02/01/19 02/02/19 1515:00 23:00 07:00 IntakeIntake Total 500 ml 120 ml BalanceBalance 500 ml 120 ml Exam min transfer min ambulation 30 feet Results/Medications Result Diagram: 01/31/19 0640 02/01/19 0615 Medications Current Medications Docusate Sodium (Colace) 100 mg BID PO Last administered on 02/02/19at 08:16; Admin Dose 100 MG; Start 01/25/19 at 21:00 Senna (Senokot) 1 tab HS PO Last administered on 02/01/19at 20:34; Admin Dose 1 TAB; Start 01/25/19 at 21:00 Magnesium Hydroxide (Milk Of Mag) 30 ml BID PRN PO CONSTIPATION; Start 01/25/19 at 15:00 Lactulose (Enulose) 20 gm DAILY PRN PO CONSTIPATION; Start 01/25/19 at 15:00 Bisacodyl (Dulcolax Supp) 10 mg DAILY PRN [place] CONSTIPATION; Start 01/25/19 at 15:00 Acetaminophen (Tylenol Tab) 650 mg Q4H PRN PO PAIN; Start 01/25/19 at 15:00 Miscellaneous Information (Pending [facility] Order For Wound Care) This patient cruz... PRN PRN XX WOUND CARE; Start 01/25/19 at 15:00 Albuterol (Ventolin Hfa) 2 puff Q4H RESP THERAPY PRN INH SHORTNESS OF BREATH; Start 01/25/19 at 15:00 Aspirin (Aspirin) 81 mg DAILY PO Last administered on 02/02/19at 08:17; Admin Dose 81 MG; Start 01/26/19 at 09:00 Diphenhydramine HCl (Benadryl) 25 mg Q4 PRN IV itching; Start 01/25/19 at 15:00 Donepezil HCl (Aricept) 10 mg DAILY PO Last administered on 02/02/19 08:17; Admin Dose 10 MG; Start 01/26/19 at 09:00 Enoxaparin Sodium (Lovenox) 30 mg DAILY SC Last administered on 02/02/19 08:23; Admin Dose 30 MG; Start 01/26/19 at 09:00 Acetaminophen/ Hydrocodone Bitart ([place] (5/325)) 1 tab Q4H PRN PO MODERATE PAIN LEVEL 4-6 Last administered on 02/02/19 07:38; Admin Dose 1 TAB; Start 01/25/19 at 15:00 Hydromorphone HCl (Dilaudid) 0.5 mg Q2 PRN IV SEVERE PAIN LEVEL 7-10 Last administered on 01/31/19 03:32; Admin Dose 0.5 MG; Start 01/25/19 at 15:00 Levothyroxine Sodium (Synthroid) 75 mcg DAILY@06 PO Last administered on 02/02/19 06:32; Admin Dose 75 MCG; Start 01/26/19 at 06:00 Naloxone HCl (Narcan) 0.2 mg Q2M PRN IV OD; Start 01/25/19 at 15:00 Ondansetron HCl (Zofran Inj) 4 mg Q6H PRN IV NAUSEA AND/OR VOMITING Last administered on 01/27/19 12:39; Admin Dose 4 MG; Start 01/25/19 at 15:00 Pantoprazole (Protonix Tab) 40 mg DAILY@06 PO Last administered on 02/02/19 06:32; Admin Dose 40 MG; Start 01/26/19 at 06:00 Sacubitril/ Valsartan (Entresto 24 Mg-26 Mg) 1 tab BID PO Last administered on 02/01/19 21:01; Admin Dose 1 TAB; Start 01/27/19 at 21:00 Atorvastatin Calcium (Lipitor) 10 mg HS PO Last administered on 02/01/19 20:35; Admin Dose 10 MG; Start 01/27/19 at 21:00 Furosemide (Lasix) 20 mg DAILY PO Last administered on 02/02/19 08:17; Admin Dose 20 MG; Start 01/27/19 at 13:00 Memantine (Namenda) 10 mg BID PO Last administered on 02/02/19 08:16; Admin Dose 10 MG; Start 01/27/19 at 21:00 Metoprolol Tartrate (Lopressor) 25 mg BID PO Last administered on 02/01/19at 20:34; Admin Dose 25 MG; Start 01/28/19 at 21:00 Spironolactone (Aldactone) 25 mg DAILY@0600 PO Last administered on 02/02/19at 06:32; Admin Dose 25 MG; Start 01/28/19 at 15:00 Gabapentin (Neurontin) 300 mg TID PO Last administered on 02/02/19at 08:17; Admin Dose 300 MG; Start 01/29/19 at 13:00 Acetaminophen/ Hydrocodone Bitart ([place] (5/325)) 2 tab Q4H PRN PO SEVERE PAIN LEVEL 7-10; Start 02/02/19 at 11:00 Assessment/Plan Additional Assessment/Plan Rehabilitation-status post acute right hip fracture ORIF PWB Continue rehab activities, good progress Coronary artery disease, currently stable. Type 2 diabetes- monitor . Essential hypertension Hyperlipidemia. anemia. DALIA LIANG MD Feb 02, 2019 12:37
--- NOTE | 2019-02-02 13:00 | PN ---
Date/Time of Note Date/Time of Note DATE: 02/02/19 TIME: 12:57 Assessment/Plan VTE Prophylaxis Risk score (from Ns)>0 risk: 9 SCD applied (from Ns): Yes Pharmacological prophylaxis: LMWH Lines/Catheters IV Catheter Type (from Nrs): Saline Lock Urinary Cath still in place: No Assessment/Plan Hospital Course SUBJECTIVE: had orthostatic hypotension today.asymptomatic. OBJECTIVE: Vital signs-see below PHYSICAL EXAM: Constitutional: Elderly female,not in acute distress. HEENT: Head atraumatic and normocephalic. Eyes: Extraocular muscles intact. Anicteric sclerae. Pupils equal bilaterally, reactive to light. NECK: Supple without lymph node. CHEST: Clear and good breath sounds equally. No wheezing. No rhonchi. HEART: S1, S2. Regular rate and rhythm. ABDOMEN: Soft/non tender with no rebound tenderness. Bowel sounds were present. EXTREMITIES: RLE surgical dressing c/d/i. no cyanosis, clubbing or edema. NEUROLOGIC: Alert and oriented x3. No focal deficit. No sensory deficit. PSYCHOSOCIAL: No signs of depression. INTEGUMENTARY: No open wounds. ASSESSMENT AND PLAN: Acute right hip fracture -s/p medullary pinning by Dr. Lara on 01/22. -dvt ppx,pain control,pt/rehab. Coronary artery disease: History of CABG. -cont. aspirin, beta-blockers,statin CHF/Cardiomyopathy -clinically stable-latest ef 40% -on bb,aldactone,entresto,lasix Acute on chronic iron deficient anemia -s/p iv iron -start po feso4 Hypertension -Had a episode of orthostatic hypotension. Decrease BB to 12.5 daily -cont.other bp meds w/parameters. Hyperlipidemia - Continue statin Dementia - Continue Aricept/ Namenda Hypothyroidism -On Synthroid UTI -s/p treatment DVT GI prophylaxis: LOVENOX Patient was seen in collaboration with Result Diagram: 01/31/19 0640 02/01/19 0615 Exam/Review of Systems Exam Vitals Vital Signs Date Temp Pulse Resp B/P (MAP) Pulse Ox O2 O2 Flow FiO2 Time Delivery Rate 02/02/19 70 101/41 09:30 (61) 02/02/19 98.1 18 99 Room Air 07:43 01/31/19 2.0 21:00 Intake and Output 02/01/19 02/01/19 02/02/19 1515:00 23:00 07:00 IntakeIntake Total 500 ml 120 ml BalanceBalance 500 ml 120 ml Medications Medication Current Medications Docusate Sodium (Colace) 100 mg BID PO Last administered on 02/02/19 08:16; Admin Dose 100 MG; Start 01/25/19 at 21:00 Senna (Senokot) 1 tab HS PO Last administered on 02/01/19 20:34; Admin Dose 1 TAB; Start 01/25/19 at 21:00 Magnesium Hydroxide (Milk Of Mag) 30 ml BID PRN PO CONSTIPATION; Start 01/25/19 at 15:00 Lactulose (Enulose) 20 gm DAILY PRN PO CONSTIPATION; Start 01/25/19 at 15:00 Bisacodyl (Dulcolax Supp) 10 mg DAILY PRN [place] CONSTIPATION; Start 01/25/19 at 15:00 Acetaminophen (Tylenol Tab) 650 mg Q4H PRN PO PAIN; Start 01/25/19 at 15:00 [facility]isc[facility] This patient cruz... PRN PRN XX WOUND CARE; Start 01/25/19 at 15:00 Albuterol (Ventolin Hfa) 2 puff Q4H RESP THERAPY PRN INH SHORTNESS OF BREATH; Start 01/25/19 at 15:00 Aspirin (Aspirin) 81 mg DAILY PO Last administered on 02/02/19 08:17; Admin Dose 81 MG; Start 01/26/19 at 09:00 Diphenhydramine HCl (Benadryl) 25 mg Q4 PRN IV itching; Start 01/25/19 at 15:00 Donepezil HCl (Aricept) 10 mg DAILY PO Last administered on 02/02/19 08:17; Admin Dose 10 MG; Start 01/26/19 at 09:00 Enoxaparin Sodium (Lovenox) 30 mg DAILY SC Last administered on 02/02/19 08:23; Admin Dose 30 MG; Start 01/26/19 at 09:00 Acetaminophen/ Hydrocodone Bitart ([place] (5/325)) 1 tab Q4H PRN PO MODERATE PAIN LEVEL 4-6 Last administered on 02/02/19 07:38; Admin Dose 1 TAB; Start 01/25/19 at 15:00 Hydromorphone HCl (Dilaudid) 0.5 mg Q2 PRN IV SEVERE PAIN LEVEL 7-10 Last administered on 01/31/19 03:32; Admin Dose 0.5 MG; Start 01/25/19 at 15:00 Levothyroxine Sodium (Synthroid) 75 mcg DAILY@06 PO Last administered on 02/02/19 06:32; Admin Dose 75 MCG; Start 01/26/19 at 06:00 Naloxone HCl (Narcan) 0.2 mg Q2M PRN IV OD; Start 01/25/19 at 15:00 Ondansetron HCl (Zofran Inj) 4 mg Q6H PRN IV NAUSEA AND/OR VOMITING Last administered on 01/27/19 12:39; Admin Dose 4 MG; Start 01/25/19 at 15:00 Pantoprazole (Protonix Tab) 40 mg DAILY@06 PO Last administered on 02/02/19 06:32; Admin Dose 40 MG; Start 01/26/19 at 06:00 Sacubitril/ Valsartan (Entresto 24 Mg-26 Mg) 1 tab BID PO Last administered on 02/01/19 21:01; Admin Dose 1 TAB; Start 01/27/19 at 21:00 Atorvastatin Calcium (Lipitor) 10 mg HS PO Last administered on 02/01/19 20:35; Admin Dose 10 MG; Start 01/27/19 at 21:00 Furosemide (Lasix) 20 mg DAILY PO Last administered on 02/02/19 08:17; Admin Dose 20 MG; Start 01/27/19 at 13:00 Memantine (Namenda) 10 mg BID PO Last administered on 02/02/19 08:16; Admin Dose 10 MG; Start 01/27/19 at 21:00 Metoprolol Tartrate (Lopressor) 25 mg BID PO Last administered on 02/01/19 20:34; Admin Dose 25 MG; Start 01/28/19 at 21:00 Spironolactone (Aldactone) 25 mg DAILY@0600 PO Last administered on 02/02/19 06:32; Admin Dose 25 MG; Start 01/28/19 at 15:00 Gabapentin (Neurontin) 300 mg TID PO Last administered on 7/10/19at 08:17; Admin Dose 300 MG; Start 01/29/19 at 13:00 Acetaminophen/ Hydrocodone Bitart ([place] (5/325)) 2 tab Q4H PRN PO SEVERE PAIN LEVEL 7-10; Start 02/02/19 at 11:00 JAMES RUEDA NP Feb 02, 2019 13:00
[2019-02-02] MEDS: SENNA TAB PO SCH (20:51)
[2019-02-02] MEDS: ATORVASTATIN 10 MG TAB PO SCH (20:51)
[2019-02-03 02:00] VITALS: BP 100/58; PULSE 75; RESP 18
[2019-02-03] MEDS: LEVOTHYROXINE 75 MCG TAB PO SCH (06:46)
[2019-02-03] MEDS: PANTOPRAZOLE (EC) 40 MG TAB PO SCH (06:46)
[2019-02-03] MEDS: SPIRONOLACTONE 25 MG TAB PO SCH (06:46)
[2019-02-03] MEDS: HYDROCODONE/APAP (5/325) TAB PO PRN (07:23)
[2019-02-03] MEDS: ASPIRIN 81 MG TAB PO SCH (07:49)
[2019-02-03] MEDS: DONEPEZIL 10 MG TAB PO SCH (07:49)
[2019-02-03] MEDS: DOCUSATE SODIUM 100 MG CAP PO SCH ×2 (07:50→20:14)
[2019-02-03] MEDS: ENOXAPARIN 30 MG/0.3 ML SYG SC SCH (08:12)
[2019-02-03] MEDS: MEMANTINE 10 MG TAB PO SCH ×2 (08:13→20:14)
[2019-02-03] MEDS: FUROSEMIDE 20 MG TAB PO SCH (08:13)
[2019-02-03] MEDS: GABAPENTIN 300 MG CAP PO SCH ×3 (08:13→20:14)
[2019-02-03 08:16] VITALS: BP 122/72; PULSE 78
[2019-02-03] MEDS: HYDROmorphONE 0.5 MG/0.5 ML SYG SC PRN ×4 (08:16→17:20)
[2019-02-03 08:46] VITALS: BP 142/62
[2019-02-03] MEDS: SACUBITRIL/VALSARTAN (24mg-26mg) TABLET PO SCH ×2 (09:00→20:14)
[2019-02-03] MEDS: METOPROLOL 25 MG TAB PO SCH (11:13)
--- NOTE | 2019-02-03 11:14 | PN ---
Date/Time of Note Date/Time of Note DATE: 02/03/19 TIME: 11:04 Objective Vital Signs Date Temp Pulse Resp B/P (MAP) Pulse Ox O2 O2 Flow FiO2 Time Delivery Rate 02/03/19 98.2 78 122/72 98 Room Air 08:16 (89) 02/03/19 18 02:00 01/31/19 2.0 21:00 Intake and Output 02/02/19 02/02/19 02/03/19 1515:00 23:00 07:00 IntakeIntake Total 200 ml 400 ml 200 ml BalanceBalance 200 ml 400 ml 200 ml Exam INTERDISCIPLINARY TEAM CONFERENCE Attended by PT, OT, ST, Human Resources Office Assistant, Social Work, Rehabilitation Nursing, Vamp Marker and Cupola Patcher HelperFinancial Planning Adviser Exam: Pulm- cta Abd- soft BOWEL- Cont BLADDER-Cont SKIN- improving OT- DRESSING- min BATHING- min TOILETING- min PT- BED MOBILITY- sba TRANSFERS- min AMBULATION- cga/min 25 feet A/P- Interdisciplinary team conference held today. Please see interdisciplinary sheet. Working toward d.c. on 02/09 with post discharge follow up of physical therapy, occupational therapy. Results/Medications Result Diagram: 01/31/19 0640 02/01/19 0615 Medications Current Medications Docusate Sodium (Colace) 100 mg BID PO Last administered on 02/03/19at 07:50; Admin Dose 100 MG; Start 01/25/19 at 21:00 Senna (Senokot) 1 tab HS PO Last administered on 02/02/19at 20:51; Admin Dose 1 TAB; Start 01/25/19 at 21:00 Magnesium Hydroxide (Milk Of Mag) 30 ml BID PRN PO CONSTIPATION; Start 01/25/19 at 15:00 Lactulose (Enulose) 20 gm DAILY PRN PO CONSTIPATION; Start 01/25/19 at 15:00 Bisacodyl (Dulcolax Supp) 10 mg DAILY PRN [place] CONSTIPATION; Start 01/25/19 at 15:00 Miscellaneous Information (Pending [facility] Order For Wound Care) This patient cruz... PRN PRN XX WOUND CARE; Start 01/25/19 at 15:00 Albuterol (Ventolin Hfa) 2 puff Q4H RESP THERAPY PRN INH SHORTNESS OF BREATH; Start 01/25/19 at 15:00 Aspirin (Aspirin) 81 mg DAILY PO Last administered on 02/03/19 07:49; Admin Dose 81 MG; Start 01/26/19 at 09:00 Diphenhydramine HCl (Benadryl) 25 mg Q4 PRN IV itching; Start 01/25/19 at 15:00 Donepezil HCl (Aricept) 10 mg DAILY PO Last administered on 02/03/19 07:49; Admin Dose 10 MG; Start 01/26/19 at 09:00 Enoxaparin Sodium (Lovenox) 30 mg DAILY SC Last administered on 02/03/19 08:12; Admin Dose 30 MG; Start 01/26/19 at 09:00 Levothyroxine Sodium (Synthroid) 75 mcg DAILY@06 PO Last administered on 02/03/19 06:46; Admin Dose 75 MCG; Start 01/26/19 at 06:00 Naloxone HCl (Narcan) 0.2 mg Q2M PRN IV OD; Start 01/25/19 at 15:00 Ondansetron HCl (Zofran Inj) 4 mg Q6H PRN IV NAUSEA AND/OR VOMITING Last administered on 01/27/19 12:39; Admin Dose 4 MG; Start 01/25/19 at 15:00 Pantoprazole (Protonix Tab) 40 mg DAILY@06 PO Last administered on 02/03/19 06:46; Admin Dose 40 MG; Start 01/26/19 at 06:00 Sacubitril/ Valsartan (Entresto 24 Mg-26 Mg) 1 tab BID PO Last administered on 02/02/19 20:51; Admin Dose 1 TAB; Start 01/27/19 at 21:00 Atorvastatin Calcium (Lipitor) 10 mg HS PO Last administered on 02/02/19 20:51; Admin Dose 10 MG; Start 01/27/19 at 21:00 Furosemide (Lasix) 20 mg DAILY PO Last administered on 02/03/19 08:13; Admin Dose 20 MG; Start 01/27/19 at 13:00 Memantine (Namenda) 10 mg BID PO Last administered on 02/03/19 08:13; Admin Dose 10 MG; Start 01/27/19 at 21:00 Spironolactone (Aldactone) 25 mg DAILY@0600 PO Last administered on 7/11/19at 06:46; Admin Dose 25 MG; Start 01/28/19 at 15:00 Gabapentin (Neurontin) 300 mg TID PO Last administered on 02/03/19at 08:13; Admin Dose 300 MG; Start 01/29/19 at 13:00 Metoprolol Tartrate (Lopressor) 12.5 mg DAILY PO ; Start 02/03/19 at 09:00 Acetaminophen (Tylenol Tab) 1,000 mg Q8H PO ; Start 02/03/19 at 15:00 Hydromorphone HCl (Dilaudid) 0.5 mg Q2H PRN [place] BREAKTHROUGH PAIN Last administered on 02/03/19at 08:16; Admin Dose 0.5 MG; Start 02/03/19 at 08:30 Oxycodone HCl (Roxicodone) 5 mg Q4H PRN PO MODERATE PAIN LEVEL 4-6; Start 02/03/19 at 08:30 Oxycodone HCl (Roxicodone) 10 mg Q4H PRN PO MODERATE PAIN LEVEL 7-10; Start 02/03/19 at 08:30 DALIA LIANG MD Feb 03, 2019 11:14
[2019-02-03 14:00] VITALS: BP 112/70; PULSE 88; RESP 18
--- NOTE | 2019-02-03 14:21 | PN ---
Date/Time of Note Date/Time of Note DATE: 02/03/19 TIME: 14:18 Assessment/Plan VTE Prophylaxis Risk score (from Ns)>0 risk: 9 SCD applied (from Ns): Yes Pharmacological prophylaxis: LMWH Lines/Catheters IV Catheter Type (from Nrs): Saline Lock Urinary Cath still in place: No Assessment/Plan Hospital Course SUBJECTIVE:no acute episodes OBJECTIVE: Vital signs-see below PHYSICAL EXAM: Constitutional: Elderly female,not in acute distress. HEENT: Head atraumatic and normocephalic. Eyes: Extraocular muscles intact. Anicteric sclerae. Pupils equal bilaterally, reactive to light. NECK: Supple without lymph node. CHEST: Clear and good breath sounds equally. No wheezing. No rhonchi. HEART: S1, S2. Regular rate and rhythm. ABDOMEN: Soft/non tender with no rebound tenderness. Bowel sounds were present. EXTREMITIES: RLE surgical dressing c/d/i. no cyanosis, clubbing or edema. NEUROLOGIC: Alert and oriented x3. No focal deficit. No sensory deficit. PSYCHOSOCIAL: No signs of depression. INTEGUMENTARY: No open wounds. ASSESSMENT AND PLAN: Acute right hip fracture -s/p medullary pinning by Dr. Lara on 01/22. -dvt ppx,pain control,pt/rehab. Coronary artery disease: History of CABG. -cont. aspirin, beta-blockers,statin CHF/Cardiomyopathy -clinically stable-latest ef 40% -conr. bb,Aldactone,entresto,lasix as tolerated Acute on chronic iron deficient anemia -s/p iv iron -start po feso4 Hypertension -now better -cont. current bp meds. Adjust parameters to give more room for bb/entresto Hyperlipidemia - Continue statin Dementia - Continue Aricept/ Namenda Hypothyroidism -On Synthroid UTI -s/p treatment DVT GI prophylaxis: LOVENOX Patient was seen in collaboration with Result Diagram: 01/31/19 0640 02/01/19 0615 Exam/Review of Systems Exam Vitals Vital Signs Date Temp Pulse Resp B/P (MAP) Pulse Ox O2 O2 Flow FiO2 Time Delivery Rate 02/03/19 98.2 78 122/72 98 Room Air 08:16 (89) 02/03/19 18 02:00 01/31/19 2.0 21:00 Intake and Output 02/02/19 02/02/19 02/03/19 1515:00 23:00 07:00 IntakeIntake Total 200 ml 400 ml 200 ml BalanceBalance 200 ml 400 ml 200 ml Medications Medication Current Medications Docusate Sodium (Colace) 100 mg BID PO Last administered on 02/03/19at 07:50; Admin Dose 100 MG; Start 01/25/19 at 21:00 Senna (Senokot) 1 tab HS PO Last administered on 02/02/19at 20:51; Admin Dose 1 TAB; Start 01/25/19 at 21:00 Magnesium Hydroxide (Milk Of Mag) 30 ml BID PRN PO CONSTIPATION; Start 01/25/19 at 15:00 Lactulose (Enulose) 20 gm DAILY PRN PO CONSTIPATION; Start 01/25/19 at 15:00 Bisacodyl (Dulcolax Supp) 10 mg DAILY PRN [place] CONSTIPATION; Start 01/25/19 at 15:00 Miscellaneous Information (Pending [facility] Order For Wound Care) This patient cruz... PRN PRN XX WOUND CARE; Start 01/25/19 at 15:00 Albuterol (Ventolin Hfa) 2 puff Q4H RESP THERAPY PRN INH SHORTNESS OF BREATH; Start 01/25/19 at 15:00 Aspirin (Aspirin) 81 mg DAILY PO Last administered on 02/03/19at 07:49; Admin Dose 81 MG; Start 01/26/19 at 09:00 Diphenhydramine HCl (Benadryl) 25 mg Q4 PRN IV itching; Start 01/25/19 at 15:00 Donepezil HCl (Aricept) 10 mg DAILY PO Last administered on 02/03/19at 07:49; Admin Dose 10 MG; Start 01/26/19 at 09:00 Enoxaparin Sodium (Lovenox) 30 mg DAILY SC Last administered on 02/03/19 08:12; Admin Dose 30 MG; Start 01/26/19 at 09:00 Levothyroxine Sodium (Synthroid) 75 mcg DAILY@06 PO Last administered on 06/14at 06:46; Admin Dose 75 MCG; Start 01/26/19 at 06:00 Naloxone HCl (Narcan) 0.2 mg Q2M PRN IV OD; Start 01/25/19 at 15:00 Ondansetron HCl (Zofran Inj) 4 mg Q6H PRN IV NAUSEA AND/OR VOMITING Last a dministered on 01/27/19 12:39; Admin Dose 4 MG; Start 01/25/19 at 15:00 Pantoprazole (Protonix Tab) 40 mg DAILY@06 PO Last administered on 02/03/19 06:46; Admin Dose 40 MG; Start 01/26/19 at 06:00 Sacubitril/ Valsartan (Entresto 24 Mg-26 Mg) 1 tab BID PO Last administered on 02/02/19 20:51; Admin Dose 1 TAB; Start 01/27/19 at 21:00 Atorvastatin Calcium (Lipitor) 10 mg HS PO Last administered on 02/02/19 20:51; Admin Dose 10 MG; Start 01/27/19 at 21:00 Furosemide (Lasix) 20 mg DAILY PO Last administered on 02/03/19 08:13; Admin Dose 20 MG; Start 01/27/19 at 13:00 Memantine (Namenda) 10 mg BID PO Last administered on 02/03/19 08:13; Admin Dose 10 MG; Start 01/27/19 at 21:00 Spironolactone (Aldactone) 25 mg DAILY@0600 PO Last administered on 02/03/19 06:46; Admin Dose 25 MG; Start 01/28/19 at 15:00 Gabapentin (Neurontin) 300 mg TID PO Last administered on 02/03/19 12:18; Admin Dose 300 MG; Start 01/29/19 at 13:00 Metoprolol Tartrate (Lopressor) 12.5 mg DAILY PO Last administered on 02/03/19 11:13; Admin Dose 12.5 MG; Start 02/03/19 at 09:00 Acetaminophen (Tylenol Tab) 1,000 mg Q8H PO ; Start 02/03/19 at 15:00 Hydromorphone HCl (Dilaudid) 0.5 mg Q2H PRN SC BREAKTHROUGH PAIN Last administered on 02/03/19 11:14; Admin Dose 0.5 MG; Start 02/03/19 at 08:30 Oxycodone HCl (Roxicodone) 5 mg Q4H PRN PO MODERATE PAIN LEVEL 4-6; Start 02/03/19 at 08:30 Oxycodone HCl (Roxicodone) 10 mg Q4H PRN PO MODERATE PAIN LEVEL 7-10; Start 02/03/19 at 08:30 JAMES RUEDA NP Feb 03, 2019 14:21
[2019-02-03] MEDS: ACETAMINOPHEN 500 MG TAB PO SCH ×2 (15:00→22:20)
[2019-02-03 20:09] VITALS: BP 113/55; PULSE 74; RESP 18
[2019-02-03] MEDS: ATORVASTATIN 10 MG TAB PO SCH (20:14)
[2019-02-03] MEDS: oxyCODONE 5 MG TAB PO PRN (20:14)
[2019-02-03] MEDS: SENNA TAB PO SCH (20:14)
[2019-02-04 02:00] VITALS: BP 114/57; PULSE 78; RESP 18
[2019-02-04] MEDS: PANTOPRAZOLE (EC) 40 MG TAB PO SCH (06:22)
[2019-02-04] MEDS: LEVOTHYROXINE 75 MCG TAB PO SCH (06:22)
[2019-02-04] MEDS: ACETAMINOPHEN 500 MG TAB PO SCH ×3 (06:23→23:47)
[2019-02-04 08:00] VITALS: BP 109/47; PULSE 62; RESP 18
[2019-02-04] MEDS: HYDROmorphONE 0.5 MG/0.5 ML SYG SC PRN ×5 (08:15→19:29)
--- NOTE | 2019-02-04 08:48 | PN ---
Date/Time of Note Date/Time of Note DATE: 02/04/19 TIME: 08:47 Subjective Better today. Patient comfortable, motivated Objective Vital Signs Date Temp Pulse Resp B/P (MAP) Pulse Ox O2 O2 Flow FiO2 Time Delivery Rate 02/04/19 97.7 62 18 109/47 Room Air 08:00 (67) 02/04/19 98 02:00 01/31/19 2.0 21:00 Intake and Output 02/03/19 02/03/19 02/04/19 1515:00 23:00 07:00 IntakeIntake Total 600 ml 400 ml BalanceBalance 600 ml 400 ml Exam min transfer min ambulation 40 feet [id number] Results/Medications Result Diagram: 01/31/19 0640 02/01/19 0615 Medications Current Medications Docusate Sodium (Colace) 100 mg BID PO Last administered on 02/03/19at 20:14; Admin Dose 100 MG; Start 01/25/19 at 21:00 Senna (Senokot) 1 tab HS PO Last administered on 02/03/19at 20:14; Admin Dose 1 TAB; Start 01/25/19 at 21:00 Magnesium Hydroxide (Milk Of Mag) 30 ml BID PRN PO CONSTIPATION; Start 01/25/19 at 15:00 Lactulose (Enulose) 20 gm DAILY PRN PO CONSTIPATION; Start 01/25/19 at 15:00 Bisacodyl (Dulcolax Supp) 10 mg DAILY PRN [place] CONSTIPATION; Start 01/25/19 at 15:00 Miscellaneous Information (Pending [facility] Order For Wound Care) This patient cruz... PRN PRN XX WOUND CARE; Start 01/25/19 at 15:00 Albuterol (Ventolin Hfa) 2 puff Q4H RESP THERAPY PRN INH SHORTNESS OF BREATH; Start 01/25/19 at 15:00 Aspirin (Aspirin) 81 mg DAILY PO Last administered on 02/03/19at 07:49; Admin Dose 81 MG; Start 01/26/19 at 09:00 Diphenhydramine HCl (Benadryl) 25 mg Q4 PRN IV itching; Start 01/25/19 at 15:00 Donepezil HCl (Aricept) 10 mg DAILY PO Last administered on 02/03/19at 07:49; Admin Dose 10 MG; Start 01/26/19 at 09:00 Enoxaparin Sodium (Lovenox) 30 mg DAILY SC Last administered on 02/03/19 08:12; Admin Dose 30 MG; Start 01/26/19 at 09:00 Levothyroxine Sodium (Synthroid) 75 mcg DAILY@06 PO Last administered on 02/04/19 06:22; Admin Dose 75 MCG; Start 01/26/19 at 06:00 Naloxone HCl (Narcan) 0.2 mg Q2M PRN IV OD; Start 01/25/19 at 15:00 Ondansetron HCl (Zofran Inj) 4 mg Q6H PRN IV NAUSEA AND/OR VOMITING Last administered on 01/27/19 12:39; Admin Dose 4 MG; Start 01/25/19 at 15:00 Pantoprazole (Protonix Tab) 40 mg DAILY@06 PO Last administered on 02/04/19 06:22; Admin Dose 40 MG; Start 01/26/19 at 06:00 Sacubitril/ Valsartan (Entresto 24 Mg-26 Mg) 1 tab BID PO Last administered on 02/03/19 20:14; Admin Dose 1 TAB; Start 01/27/19 at 21:00 Atorvastatin Calcium (Lipitor) 10 mg HS PO Last administered on 02/03/19 20:14; Admin Dose 10 MG; Start 01/27/19 at 21:00 Memantine (Namenda) 10 mg BID PO Last administered on 02/03/19 20:14; Admin Dose 10 MG; Start 01/27/19 at 21:00 Gabapentin (Neurontin) 300 mg TID PO Last administered on 02/03/19 20:14; Admin Dose 300 MG; Start 01/29/19 at 13:00 Metoprolol Tartrate (Lopressor) 12.5 mg DAILY PO Last administered on 02/03/19 11:13; Admin Dose 12.5 MG; Start 02/03/19 at 09:00 Acetaminophen (Tylenol Tab) 1,000 mg Q8H PO Last administered on 02/04/19 06:23; Admin Dose 1,000 MG; Start 02/03/19 at 15:00 Hydromorphone HCl (Dilaudid) 0.5 mg Q2H PRN [place] BREAKTHROUGH PAIN Last administered on 7/12/19at 08:15; Admin Dose 0.5 MG; Start 02/03/19 at 08:30 Oxycodone HCl (Roxicodone) 5 mg Q4H PRN PO MODERATE PAIN LEVEL 4-6 Last adminis tered on 02/03/19at 20:14; Admin Dose 5 MG; Start 02/03/19 at 08:30 Oxycodone HCl (Roxicodone) 10 mg Q4H PRN PO MODERATE PAIN LEVEL 7-10; Start 02/03/19 at 08:30 Assessment/Plan Additional Assessment/Plan Rehabilitation-status post acute right hip fracture ORIF PWB Continue rehab treatment plan, excellent progress Coronary artery disease, currently stable. Type 2 diabetes- monitor . Essential hypertension Hyperlipidemia. anemia. DALIA LIANG MD Feb 04, 2019 08:48
[2019-02-04] MEDS: DONEPEZIL 10 MG TAB PO SCH (08:52)
[2019-02-04] MEDS: MEMANTINE 10 MG TAB PO SCH ×2 (08:52→21:29)
[2019-02-04] MEDS: DOCUSATE SODIUM 100 MG CAP PO SCH ×2 (08:52→21:28)
[2019-02-04] MEDS: SACUBITRIL/VALSARTAN (24mg-26mg) TABLET PO SCH ×2 (08:52→21:32)
[2019-02-04] MEDS: GABAPENTIN 300 MG CAP PO SCH ×3 (08:53→21:28)
[2019-02-04] MEDS: ASPIRIN 81 MG TAB PO SCH (08:53)
[2019-02-04] MEDS: METOPROLOL 25 MG TAB PO SCH (08:53)
[2019-02-04] MEDS: ENOXAPARIN 30 MG/0.3 ML SYG SC SCH (08:55)
--- NOTE | 2019-02-04 11:05 | PN ---
Date/Time of Note Date/Time of Note DATE: 02/04/19 TIME: 11:03 Assessment/Plan VTE Prophylaxis Risk score (from Ns)>0 risk: 11 SCD applied (from Ns): Yes Pharmacological prophylaxis: LMWH Lines/Catheters IV Catheter Type (from Nrs): Saline Lock Urinary Cath still in place: No Assessment/Plan Hospital Course SUBJECTIVE:no acute episodes OBJECTIVE: Vital signs-see below PHYSICAL EXAM: Constitutional: Elderly female,not in acute distress. HEENT: Head atraumatic and normocephalic. Eyes: Extraocular muscles intact. Anicteric sclerae. Pupils equal bilaterally, reactive to light. NECK: Supple without lymph node. CHEST: Clear and good breath sounds equally. No wheezing. No rhonchi. HEART: S1, S2. Regular rate and rhythm. ABDOMEN: Soft/non tender with no rebound tenderness. Bowel sounds were present. EXTREMITIES: RLE surgical dressing c/d/i. no cyanosis, clubbing or edema. NEUROLOGIC: Alert and oriented x3. No focal deficit. No sensory deficit. PSYCHOSOCIAL: No signs of depression. INTEGUMENTARY: No open wounds. ASSESSMENT AND PLAN: Acute right hip fracture -s/p medullary pinning by Dr. Lara on 01/22. -dvt ppx,pain control,pt/rehab. Coronary artery disease: History of CABG. -cont. aspirin, beta-blockers,statin CHF/Cardiomyopathy -clinically stable-latest ef 40% -cont. bb/ entresto as tolerated Acute on chronic iron deficient anemia -cont.iron sup Hypertension -Hypotension improved -tolerates bb/entresto Hyperlipidemia - Continue statin Dementia - Continue Aricept/ Namenda Hypothyroidism -On Synthroid UTI -s/p treatment DVT GI prophylaxis: LOVENOX Patient was seen in collaboration with Result Diagram: 01/31/19 0640 02/01/19 0615 Exam/Review of Systems Exam Vitals Vital Signs Date Temp Pulse Resp B/P (MAP) Pulse Ox O2 O2 Flow FiO2 Time Delivery Rate 02/04/19 97.7 62 18 109/47 Room Air 08:00 (67) 02/04/19 98 02:00 01/31/19 2.0 21:00 Intake and Output 02/03/19 02/03/19 02/04/19 1515:00 23:00 07:00 IntakeIntake Total 600 ml 400 ml BalanceBalance 600 ml 400 ml Medications Medication Current Medications Docusate Sodium (Colace) 100 mg BID PO Last administered on 02/04/19 08:52; Admin Dose 100 MG; Start 01/25/19 at 21:00 Senna (Senokot) 1 tab HS PO Last administered on 02/03/19 20:14; Admin Dose 1 TAB; Start 01/25/19 at 21:00 Magnesium Hydroxide (Milk Of Mag) 30 ml BID PRN PO CONSTIPATION; Start 01/25/19 at 15:00 Lactulose (Enulose) 20 gm DAILY PRN PO CONSTIPATION; Start 01/25/19 at 15:00 Bisacodyl (Dulcolax Supp) 10 mg DAILY PRN [place] CONSTIPATION; Start 01/25/19 at 15:00 Miscellaneous Information (Pending [facility] Order For Wound Care) This patient cruz... PRN PRN XX WOUND CARE; Start 01/25/19 at 15:00 Albuterol (Ventolin Hfa) 2 puff Q4H RESP THERAPY PRN INH SHORTNESS OF BREATH; Start 01/25/19 at 15:00 Aspirin (Aspirin) 81 mg DAILY PO Last administered on 02/04/19 08:53; Admin Dose 81 MG; Start 01/26/19 at 09:00 Diphenhydramine HCl (Benadryl) 25 mg Q4 PRN IV itching; Start 01/25/19 at 15:00 Donepezil HCl (Aricept) 10 mg DAILY PO Last administered on 02/04/19 08:52; Admin Dose 10 MG; Start 01/26/19 at 09:00 Enoxaparin Sodium (Lovenox) 30 mg DAILY SC Last administered on 02/04/19 08:55; Admin Dose 30 MG; Start 01/26/19 at 09:00 Levothyroxine Sodium (Synthroid) 75 mcg DAILY@06 PO Last administered on 02/04/19 06:22; Admin Dose 75 MCG; Start 01/26/19 at 06:00 Naloxone HCl (Narcan) 0.2 mg Q2M PRN IV OD; Start 01/25/19 at 15:00 Ondansetron HCl (Zofran Inj) 4 mg Q6H PRN IV NAUSEA AND/OR VOMITING Last administered on 01/27/19 12:39; Admin Dose 4 MG; Start 01/25/19 at 15:00 Pantoprazole (Protonix Tab) 40 mg DAILY@06 PO Last administered on 02/04/19 06:22; Admin Dose 40 MG; Start 01/26/19 at 06:00 Sacubitril/ Valsartan (Entresto 24 Mg-26 Mg) 1 tab BID PO Last administered on 02/04/19 08:52; Admin Dose 1 TAB; Start 01/27/19 at 21:00 Atorvastatin Calcium (Lipitor) 10 mg HS PO Last administered on 02/03/19 20:14; Admin Dose 10 MG; Start 01/27/19 at 21:00 Memantine (Namenda) 10 mg BID PO Last administered on 02/04/19 08:52; Admin Dose 10 MG; Start 01/27/19 at 21:00 Gabapentin (Neurontin) 300 mg TID PO Last administered on 02/04/19 08:53; Admin Dose 300 MG; Start 01/29/19 at 13:00 Metoprolol Tartrate (Lopressor) 12.5 mg DAILY PO Last administered on 02/04/19 08:53; Admin Dose 12.5 MG; Start 02/03/19 at 09:00 Acetaminophen (Tylenol Tab) 1,000 mg Q8H PO Last administered on 02/04/19 06:23; Admin Dose 1,000 MG; Start 02/03/19 at 15:00 Hydromorphone HCl (Dilaudid) 0.5 mg Q2H PRN [place] BREAKTHROUGH PAIN Last administered on 02/04/19 08:15; Admin Dose 0.5 MG; Start 02/03/19 at 08:30 Oxycodone HCl (Roxicodone) 5 mg Q4H PRN PO MODERATE PAIN LEVEL 4-6 Last administered on 02/03/19 20:14; Admin Dose 5 MG; Start 02/03/19 at 08:30 Oxycodone HCl (Roxicodone) 10 mg Q4H PRN PO MODERATE PAIN LEVEL 7-10; Start 02/03/19 at 08:30 JAMES RUEDA NP Feb 04, 2019 11:05
[2019-02-04] MEDS: oxyCODONE 5 MG TAB PO PRN (11:08)
[2019-02-04 20:00] VITALS: BP 116/59; PULSE 74; RESP 18
[2019-02-04] MEDS: ATORVASTATIN 10 MG TAB PO SCH (21:28)
[2019-02-04] MEDS: SENNA TAB PO SCH (21:28)
[2019-02-05 02:00] VITALS: BP 112/58; PULSE 68; RESP 18
[2019-02-05] MEDS: PANTOPRAZOLE (EC) 40 MG TAB PO SCH (06:19)
[2019-02-05] MEDS: LEVOTHYROXINE 75 MCG TAB PO SCH (06:19)
[2019-02-05] MEDS: ACETAMINOPHEN 500 MG TAB PO SCH ×3 (06:19→23:00)
[2019-02-05 08:00] VITALS: BP 126/61; PULSE 71; RESP 18
[2019-02-05] MEDS: ENOXAPARIN 30 MG/0.3 ML SYG SC SCH (08:20)
[2019-02-05] MEDS: DOCUSATE SODIUM 100 MG CAP PO SCH ×2 (08:21→21:14)
[2019-02-05] MEDS: DONEPEZIL 10 MG TAB PO SCH (08:21)
[2019-02-05] MEDS: MEMANTINE 10 MG TAB PO SCH ×2 (08:21→21:14)
[2019-02-05] MEDS: GABAPENTIN 300 MG CAP PO SCH ×3 (08:21→21:14)
[2019-02-05] MEDS: HYDROmorphONE 0.5 MG/0.5 ML SYG SC PRN (08:21)
[2019-02-05] MEDS: ASPIRIN 81 MG TAB PO SCH (08:21)
[2019-02-05] MEDS: SACUBITRIL/VALSARTAN (24mg-26mg) TABLET PO SCH ×2 (08:21→21:14)
[2019-02-05] MEDS: METOPROLOL 25 MG TAB PO SCH (08:21)
--- NOTE | 2019-02-05 13:49 | PN ---
Date/Time of Note Date/Time of Note DATE: 02/05/19 TIME: 13:48 Assessment/Plan VTE Prophylaxis Risk score (from Ns)>0 risk: 9 SCD applied (from Ns): Yes Pharmacological prophylaxis: LMWH Lines/Catheters IV Catheter Type (from Nrs): Saline Lock Urinary Cath still in place: No Assessment/Plan Hospital Course SUBJECTIVE:no acute episodes OBJECTIVE: Vital signs-see below PHYSICAL EXAM: Constitutional: Elderly female,not in acute distress. HEENT: Head atraumatic and normocephalic. Eyes: Extraocular muscles intact. Anicteric sclerae. Pupils equal bilaterally, reactive to light. NECK: Supple without lymph node. CHEST: Clear and good breath sounds equally. No wheezing. No rhonchi. HEART: S1, S2. Regular rate and rhythm. ABDOMEN: Soft/non tender with no rebound tenderness. Bowel sounds were present. EXTREMITIES: RLE surgical dressing c/d/i. no cyanosis, clubbing or edema. NEUROLOGIC: Alert and oriented x3. No focal deficit. No sensory deficit. PSYCHOSOCIAL: No signs of depression. INTEGUMENTARY: No open wounds. ASSESSMENT AND PLAN: Acute right hip fracture -s/p medullary pinning by Dr. Lara on 01/22. -dvt ppx,pain control,pt/rehab. Coronary artery disease: History of CABG. -cont. aspirin, beta-blockers,statin CHF/Cardiomyopathy -clinically stable-latest ef 40% -cont. bb/ entresto as tolerated Acute on chronic iron deficient anemia -cont.iron sup Hypertension -Hypotension improved -tolerates bb/entresto Hyperlipidemia - Continue statin Dementia - Continue Aricept/ Namenda Hypothyroidism -On Synthroid UTI -s/p treatment DVT GI prophylaxis: LOVENOX Patient was seen in collaboration with Result Diagram: 02/01/19 0615 Exam/Review of Systems Exam Vitals Vital Signs Date Temp Pulse Resp B/P (MAP) Pulse Ox O2 O2 Flow FiO2 Time Delivery Rate 02/05/19 97.6 71 18 126/61 98 Room Air 08:00 (82) Intake and Output 02/04/19 02/04/19 02/05/19 1515:00 23:00 07:00 IntakeIntake Total 650 ml 200 ml OutputOutput Total 350 ml BalanceBalance 650 ml -150 ml Medications Medication Current Medications Docusate Sodium (Colace) 100 mg BID PO Last administered on 02/05/19 08:21; Admin Dose 100 MG; Start 01/25/19 at 21:00 Senna (Senokot) 1 tab HS PO Last administered on 02/04/19at 21:28; Admin Dose 1 TAB; Start 01/25/19 at 21:00 Magnesium Hydroxide (Milk Of Mag) 30 ml BID PRN PO CONSTIPATION; Start 01/25/19 at 15:00 Lactulose (Enulose) 20 gm DAILY PRN PO CONSTIPATION; Start 01/25/19 at 15:00 Bisacodyl (Dulcolax Supp) 10 mg DAILY PRN [place] CONSTIPATION; Start 01/25/19 at 15:00 Miscellaneous Information (Pending [facility] Order For Wound Care) This patient cruz... PRN PRN XX WOUND CARE; Start 01/25/19 at 15:00 Albuterol (Ventolin Hfa) 2 puff Q4H RESP THERAPY PRN INH SHORTNESS OF BREATH; Start 01/25/19 at 15:00 Aspirin (Aspirin) 81 mg DAILY PO Last administered on 02/05/19 08:21; Admin Dose 81 MG; Start 01/26/19 at 09:00 Diphenhydramine HCl (Benadryl) 25 mg Q4 PRN IV itching; Start 01/25/19 at 15:00 Donepezil HCl (Aricept) 10 mg DAILY PO Last administered on 02/05/19 08:21; Admin Dose 10 MG; Start 01/26/19 at 09:00 Enoxaparin Sodium (Lovenox) 30 mg DAILY SC Last administered on 02/05/19 08:20; Admin Dose 30 MG; Start 01/26/19 at 09:00 Levothyroxine Sodium (Synthroid) 75 mcg DAILY@06 PO Last administered on 01/24 06:19; Admin Dose 75 MCG; Start 01/26/19 at 06:00 Naloxone HCl (Narcan) 0.2 mg Q2M PRN IV OD; Start 01/25/19 at 15:00 Ondansetron HCl (Zofran Inj) 4 mg Q6H PRN IV NAUSEA AND/OR VOMITING Last ad ministered on 01/27/19at 12:39; Admin Dose 4 MG; Start 01/25/19 at 15:00 Pantoprazole (Protonix Tab) 40 mg DAILY@06 PO Last administered on 02/05/19 06:19; Admin Dose 40 MG; Start 01/26/19 at 06:00 Sacubitril/ Valsartan (Entresto 24 Mg-26 Mg) 1 tab BID PO Last administered on 02/05/19 08:21; Admin Dose 1 TAB; Start 01/27/19 at 21:00 Atorvastatin Calcium (Lipitor) 10 mg HS PO Last administered on 02/04/19 21:28; Admin Dose 10 MG; Start 01/27/19 at 21:00 Memantine (Namenda) 10 mg BID PO Last administered on 02/05/19 08:21; Admin Dose 10 MG; Start 01/27/19 at 21:00 Gabapentin (Neurontin) 300 mg TID PO Last administered on 02/05/19 13:03; Admin Dose 300 MG; Start 01/29/19 at 13:00 Metoprolol Tartrate (Lopressor) 12.5 mg DAILY PO Last administered on 02/05/19 08:21; Admin Dose 12.5 MG; Start 02/03/19 at 09:00 Acetaminophen (Tylenol Tab) 1,000 mg Q8H PO Last administered on 02/05/19 06:1 9; Admin Dose 1,000 MG; Start 02/03/19 at 15:00 Hydromorphone HCl (Dilaudid) 0.5 mg Q2H PRN [place] BREAKTHROUGH PAIN Last administered on 02/05/19 08:21; Admin Dose 0.5 MG; Start 02/03/19 at 08:30 Oxycodone HCl (Roxicodone) 5 mg Q4H PRN PO MODERATE PAIN LEVEL 4-6 Last administered on 02/03/19 20:14; Admin Dose 5 MG; Start 02/03/19 at 08:30 Oxycodone HCl (Roxicodone) 10 mg Q4H PRN PO MODERATE PAIN LEVEL 7-10; Start 02/03/19 at 08:30 JAMES RUEDA NP Feb 05, 2019 13:49
[2019-02-05 14:38] VITALS: BP 109/58; PULSE 79; RESP 17
[2019-02-05 20:09] VITALS: BP 114/50; PULSE 82; RESP 18
[2019-02-05] MEDS: SENNA TAB PO SCH (21:14)
[2019-02-05] MEDS: ATORVASTATIN 10 MG TAB PO SCH (21:14)
[2019-02-06 02:16] VITALS: BP 114/57; PULSE 84; RESP 18
[2019-02-06 07:00] VITALS: BP 123/60; PULSE 83; RESP 18
[2019-02-06] MEDS: LEVOTHYROXINE 75 MCG TAB PO SCH (07:06)
[2019-02-06] MEDS: ACETAMINOPHEN 500 MG TAB PO SCH ×3 (07:06→22:05)
[2019-02-06] MEDS: PANTOPRAZOLE (EC) 40 MG TAB PO SCH (07:06)
[2019-02-06] MEDS: SACUBITRIL/VALSARTAN (24mg-26mg) TABLET PO SCH ×2 (08:20→20:24)
[2019-02-06] MEDS: ENOXAPARIN 30 MG/0.3 ML SYG SC SCH (08:20)
[2019-02-06] MEDS: DONEPEZIL 10 MG TAB PO SCH (08:20)
[2019-02-06] MEDS: MEMANTINE 10 MG TAB PO SCH ×2 (08:20→20:24)
[2019-02-06] MEDS: GABAPENTIN 300 MG CAP PO SCH ×3 (08:20→20:24)
[2019-02-06] MEDS: METOPROLOL 25 MG TAB PO SCH (08:21)
[2019-02-06] MEDS: ASPIRIN 81 MG TAB PO SCH (08:22)
[2019-02-06] MEDS: DOCUSATE SODIUM 100 MG CAP PO SCH ×2 (08:22→20:24)
--- NOTE | 2019-02-06 09:25 | PN ---
Date/Time of Note Date/Time of Note DATE: 02/06/19 TIME: 09:24 Subjective Patient doing well Objective Vital Signs Date Temp Pulse Resp B/P (MAP) Pulse Ox O2 O2 Flow FiO2 Time Delivery Rate 02/06/19 98.1 83 18 123/60 91 Room Air 07:00 (81) Intake and Output 02/05/19 02/05/19 02/06/19 1515:00 23:00 07:00 IntakeIntake Total 240 ml 450 ml OutputOutput Total 300 ml 400 ml BalanceBalance 240 ml -300 ml 50 ml Exam pulm-cta sba transfer sba ambulation 80 feet Results/Medications Medications Current Medications Docusate Sodium (Colace) 100 mg BID PO Last administered on 02/06/19at 08:22; Admin Dose 100 MG; Start 01/25/19 at 21:00 Senna (Senokot) 1 tab HS PO Last administered on 02/05/19at 21:14; Admin Dose 1 TAB; Start 01/25/19 at 21:00 Magnesium Hydroxide (Milk Of Mag) 30 ml BID PRN PO CONSTIPATION; Start 01/25/19 at 15:00 Lactulose (Enulose) 20 gm DAILY PRN PO CONSTIPATION; Start 01/25/19 at 15:00 Bisacodyl (Dulcolax Supp) 10 mg DAILY PRN [place] CONSTIPATION; Start 01/25/19 at 15:00 Miscellaneous Information (Pending [facility] Order For Wound Care) This patient cruz... PRN PRN XX WOUND CARE; Start 01/25/19 at 15:00 Albuterol (Ventolin Hfa) 2 puff Q4H RESP THERAPY PRN INH SHORTNESS OF BREATH; Start 01/25/19 at 15:00 Aspirin (Aspirin) 81 mg DAILY PO Last administered on 02/06/19at 08:22; Admin Dose 81 MG; Start 01/26/19 at 09:00 Diphenhydramine HCl (Benadryl) 25 mg Q4 PRN IV itching; Start 01/25/19 at 15:00 Donepezil HCl (Aricept) 10 mg DAILY PO Last administered on 02/06/19at 08:20; Admin Dose 10 MG; Start 01/26/19 at 09:00 Enoxaparin Sodium (Lovenox) 30 mg DAILY SC Last administered on 02/06/19 08:20; Admin Dose 30 MG; Start 01/26/19 at 09:00 Levothyroxine Sodium (Synthroid) 75 mcg DAILY@06 PO Last administered on 02/06/19 07:06; Admin Dose 75 MCG; Start 01/26/19 at 06:00 Naloxone HCl (Narcan) 0.2 mg Q2M PRN IV OD; Start 01/25/19 at 15:00 Ondansetron HCl (Zofran Inj) 4 mg Q6H PRN IV NAUSEA AND/OR VOMITING Last administered on 01/27/19 12:39; Admin Dose 4 MG; Start 01/25/19 at 15:00 Pantoprazole (Protonix Tab) 40 mg DAILY@06 PO Last administered on 02/06/19 07:06; Admin Dose 40 MG; Start 01/26/19 at 06:00 Sacubitril/ Valsartan (Entresto 24 Mg-26 Mg) 1 tab BID PO Last administered on 02/06/19 08:20; Admin Dose 1 TAB; Start 01/27/19 at 21:00 Atorvastatin Calcium (Lipitor) 10 mg HS PO Last administered on 02/05/19 21:14; Admin Dose 10 MG; Start 01/27/19 at 21:00 Memantine (Namenda) 10 mg BID PO Last administered on 02/06/19 08:20; Admin Dose 10 MG; Start 01/27/19 at 21:00 Gabapentin (Neurontin) 300 mg TID PO Last administered on 02/06/19 08:20; Admin Dose 300 MG; Start 01/29/19 at 13:00 Metoprolol Tartrate (Lopressor) 12.5 mg DAILY PO Last administered on 02/06/19 08:21; Admin Dose 12.5 MG; Start 02/03/19 at 09:00 Acetaminophen (Tylenol Tab) 1,000 mg Q8H PO Last administered on 02/06/19 07:06; Admin Dose 1,000 MG; Start 02/03/19 at 15:00 Hydromorphone HCl (Dilaudid) 0.5 mg Q2H PRN [place] BREAKTHROUGH PAIN Last administered on 02/05/19 08:21; Admin Dose 0.5 MG; Start 02/03/19 at 08:30 Oxycodone HCl (Roxicodone) 5 mg Q4H PRN PO MODERATE PAIN LEVEL 4-6 Last administered on 02/03/19at 20:14; Admin Dose 5 MG; Start 02/03/19 at 08:30 Oxycodone HCl (Roxicodone) 10 mg Q4H PRN PO MODERATE PAIN LEVEL 7-10; Start 02/03/19 at 08:30 Assessment/Plan Additional Assessment/Plan Rehabilitation-status post acute right hip fracture ORIF PWB Motivated, making good progress. Continue rehab Coronary artery disease, currently stable. Type 2 diabetes- monitor . Essential hypertension Hyperlipidemia. anemia. DALIA LIANG MD Feb 06, 2019 09:25
--- NOTE | 2019-02-06 12:40 | PN ---
Date/Time of Note Date/Time of Note DATE: 02/06/19 TIME: 12:39 Assessment/Plan VTE Prophylaxis Risk score (from Ns)>0 risk: 9 SCD applied (from Ns): Yes Pharmacological prophylaxis: LMWH Lines/Catheters IV Catheter Type (from Nrs): Saline Lock Urinary Cath still in place: No Assessment/Plan Hospital Course SUBJECTIVE:no acute episodes OBJECTIVE: Vital signs-see below PHYSICAL EXAM: Constitutional: Elderly female,not in acute distress. HEENT: Head atraumatic and normocephalic. Eyes: Extraocular muscles intact. Anicteric sclerae. Pupils equal bilaterally, reactive to light. NECK: Supple without lymph node. CHEST: Clear and good breath sounds equally. No wheezing. No rhonchi. HEART: S1, S2. Regular rate and rhythm. ABDOMEN: Soft/non tender with no rebound tenderness. Bowel sounds were present. EXTREMITIES: RLE surgical dressing c/d/i. no cyanosis, clubbing or edema. NEUROLOGIC: Alert and oriented x3. No focal deficit. No sensory deficit. PSYCHOSOCIAL: No signs of depression. INTEGUMENTARY: No open wounds. ASSESSMENT AND PLAN: Acute right hip fracture -s/p medullary pinning by Dr. Lara on 01/22. -dvt ppx,pain control,pt/rehab. Coronary artery disease: History of CABG. -cont. aspirin, beta-blockers,statin CHF/Cardiomyopathy -clinically stable-latest ef 40% -cont. bb/ entresto as tolerated Acute on chronic iron deficient anemia -cont.iron sup Hypertension -Hypotension improved -tolerates bb/entresto Hyperlipidemia - Continue statin Dementia - Continue Aricept/ Namenda Hypothyroidism -On Synthroid UTI -s/p treatment DVT GI prophylaxis: LOVENOX Patient was seen in collaboration with Exam/Review of Systems Exam Vitals Vital Signs Date Temp Pulse Resp B/P (MAP) Pulse Ox O2 O2 Flow FiO2 Time Delivery Rate 02/06/19 98.1 83 18 123/60 91 Room Air 07:00 (81) Intake and Output 02/05/19 02/05/19 02/06/19 1515:00 23:00 07:00 IntakeIntake Total 240 ml 450 ml OutputOutput Total 300 ml 400 ml BalanceBalance 240 ml -300 ml 50 ml Medications Medication Current Medications Docusate Sodium (Colace) 100 mg BID PO Last administered on 02/06/19 08:22; Admin Dose 100 MG; Start 01/25/19 at 21:00 Senna (Senokot) 1 tab HS PO Last administered on 02/05/19at 21:14; Admin Dose 1 TAB; Start 01/25/19 at 21:00 Magnesium Hydroxide (Milk Of Mag) 30 ml BID PRN PO CONSTIPATION; Start 01/25/19 at 15:00 Lactulose (Enulose) 20 gm DAILY PRN PO CONSTIPATION; Start 01/25/19 at 15:00 Bisacodyl (Dulcolax Supp) 10 mg DAILY PRN [place] CONSTIPATION; Start 01/25/19 at 15:00 Miscellaneous Information (Pending [facility] Order For Wound Care) This patient cruz... PRN PRN XX WOUND CARE; Start 01/25/19 at 15:00 Albuterol (Ventolin Hfa) 2 puff Q4H RESP THERAPY PRN INH SHORTNESS OF BREATH; Start 01/25/19 at 15:00 Aspirin (Aspirin) 81 mg DAILY PO Last administered on 02/06/19 08:22; Admin Dose 81 MG; Start 01/26/19 at 09:00 Diphenhydramine HCl (Benadryl) 25 mg Q4 PRN IV itching; Start 01/25/19 at 15:00 Donepezil HCl (Aricept) 10 mg DAILY PO Last administered on 02/06/19 08:20; Admin Dose 10 MG; Start 01/26/19 at 09:00 Enoxaparin Sodium (Lovenox) 30 mg DAILY SC Last administered on 02/06/19 08:20; Admin Dose 30 MG; Start 01/26/19 at 09:00 Levothyroxine Sodium (Synthroid) 75 mcg DAILY@06 PO Last administered on 02/06/19 07:06; Admin Dose 75 MCG; Start 01/26/19 at 06:00 Naloxone HCl (Narcan) 0.2 mg Q2M PRN IV OD; Start 01/25/19 at 15:00 Ondansetron HCl (Zofran Inj) 4 mg Q6H PRN IV NAUSEA AND/OR VOMITING Last administered on 01/27/19 12:39; Admin Dose 4 MG; Start 01/25/19 at 15:00 Pantoprazole (Protonix Tab) 40 mg DAILY@06 PO Last administered on 02/06/19 07:06; Admin Dose 40 MG; Start 01/26/19 at 06:00 Sacubitril/ Valsartan (Entresto 24 Mg-26 Mg) 1 tab BID PO Last administered on 02/06/19 08:20; Admin Dose 1 TAB; Start 01/27/19 at 21:00 Atorvastatin Calcium (Lipitor) 10 mg HS PO Last administered on 02/05/19 21:14; Admin Dose 10 MG; Start 01/27/19 at 21:00 Memantine (Namenda) 10 mg BID PO Last administered on 02/06/19 08:20; Admin Dose 10 MG; Start 01/27/19 at 21:00 Gabapentin (Neurontin) 300 mg TID PO Last administered on 02/06/19 08:20; Admin Dose 300 MG; Start 01/29/19 at 13:00 Metoprolol Tartrate (Lopressor) 12.5 mg DAILY PO Last administered on 02/06/19 08:21; Admin Dose 12.5 MG; Start 02/03/19 at 09:00 Acetaminophen (Tylenol Tab) 1,000 mg Q8H PO Last administered on 02/06/19 07:06; Admin Dose 1,000 MG; Start 02/03/19 at 15:00 Hydromorphone HCl (Dilaudid) 0.5 mg Q2H PRN [place] BREAKTHROUGH PAIN Last administered on 02/05/19 08:21; Admin Dose 0.5 MG; Start 02/03/19 at 08:30 Oxycodone HCl (Roxicodone) 5 mg Q4H PRN PO MODERATE PAIN LEVEL 4-6 Last administered on 02/03/19 20:14; Admin Dose 5 MG; Start 02/03/19 at 08:30 Oxycodone HCl (Roxicodone) 10 mg Q4H PRN PO MODERATE PAIN LEVEL 7-10; Start 02/03/19 at 08:30 JAMES RUEDA V. ADMINISTRATION INTERN Feb 06, 2019 12:40
[2019-02-06 14:00] VITALS: BP 136/60; PULSE 80; RESP 18
[2019-02-06 20:15] VITALS: BP 119/56; PULSE 80; RESP 18
[2019-02-06] MEDS: ATORVASTATIN 10 MG TAB PO SCH (20:24)
[2019-02-06] MEDS: SENNA TAB PO SCH (20:24)
[2019-02-07 02:00] VITALS: BP 114/50; PULSE 81; RESP 16
[2019-02-07] MEDS: ACETAMINOPHEN 500 MG TAB PO SCH ×3 (06:12→22:04)
[2019-02-07] MEDS: LEVOTHYROXINE 75 MCG TAB PO SCH (06:12)
[2019-02-07] MEDS: PANTOPRAZOLE (EC) 40 MG TAB PO SCH (06:12)
[2019-02-07 08:00] VITALS: BP 133/62; PULSE 72; RESP 16
[2019-02-07] MEDS: DOCUSATE SODIUM 100 MG CAP PO SCH ×2 (08:08→20:32)
[2019-02-07] MEDS: GABAPENTIN 300 MG CAP PO SCH ×3 (08:08→20:32)
[2019-02-07] MEDS: DONEPEZIL 10 MG TAB PO SCH (08:08)
[2019-02-07] MEDS: SACUBITRIL/VALSARTAN (24mg-26mg) TABLET PO SCH ×2 (08:08→20:33)
[2019-02-07] MEDS: MEMANTINE 10 MG TAB PO SCH ×2 (08:08→20:32)
[2019-02-07] MEDS: ASPIRIN 81 MG TAB PO SCH (08:08)
[2019-02-07] MEDS: METOPROLOL 25 MG TAB PO SCH (08:09)
[2019-02-07] MEDS: ENOXAPARIN 30 MG/0.3 ML SYG SC SCH (08:10)
--- NOTE | 2019-02-07 09:25 | PN ---
Date/Time of Note Date/Time of Note DATE: 02/07/19 TIME: 09:24 Assessment/Plan VTE Prophylaxis Risk score (from Ns)>0 risk: 10 SCD applied (from Ns): Yes Pharmacological prophylaxis: LMWH Lines/Catheters IV Catheter Type (from Nrs): Saline Lock Urinary Cath still in place: No Assessment/Plan Hospital Course SUBJECTIVE:no acute episodes OBJECTIVE: Vital signs-see below PHYSICAL EXAM: Constitutional: Elderly female,not in acute distress. HEENT: Head atraumatic and normocephalic. Eyes: Extraocular muscles intact. Anicteric sclerae. Pupils equal bilaterally, reactive to light. NECK: Supple without lymph node. CHEST: Clear and good breath sounds equally. No wheezing. No rhonchi. HEART: S1, S2. Regular rate and rhythm. ABDOMEN: Soft/non tender with no rebound tenderness. Bowel sounds were present. EXTREMITIES: RLE surgical dressing c/d/i. no cyanosis, clubbing or edema. NEUROLOGIC: Alert and oriented x3. No focal deficit. No sensory deficit. PSYCHOSOCIAL: No signs of depression. INTEGUMENTARY: No open wounds. ASSESSMENT AND PLAN: Acute right hip fracture -s/p medullary pinning by Dr. Lara on 01/22. -dvt ppx,pain control,pt/rehab. Coronary artery disease: History of CABG. -cont. aspirin, beta-blockers,statin CHF/Cardiomyopathy -clinically stable-latest ef 40% -cont. bb/ entresto as tolerated Acute on chronic iron deficient anemia -cont.iron sup Hypertension -NOW STABLE -cont. bb/entresto as tolerated Hyperlipidemia - Continue statin Dementia - Continue Aricept/ Namenda Hypothyroidism -On Synthroid UTI -s/p treatment DVT GI prophylaxis: LOVENOX Patient was seen in collaboration with Exam/Review of Systems Exam Vitals Vital Signs Date Temp Pulse Resp B/P (MAP) Pulse Ox O2 O2 Flow FiO2 Time Delivery Rate 02/07/19 98.2 72 16 133/62 93 Room Air 08:00 (85) Intake and Output 02/06/19 02/06/19 02/07/19 1515:00 23:00 07:00 IntakeIntake Total 800 ml 2120 ml OutputOutput Total 400 ml 600 ml BalanceBalance 400 ml 1520 ml Medications Medication Current Medications Docusate Sodium (Colace) 100 mg BID PO Last administered on 02/07/19 08:08; Admin Dose 100 MG; Start 01/25/19 at 21:00 Senna (Senokot) 1 tab HS PO Last administered on 02/06/19 20:24; Admin Dose 1 TAB; Start 01/25/19 at 21:00 Magnesium Hydroxide (Milk Of Mag) 30 ml BID PRN PO CONSTIPATION; Start 01/25/19 at 15:00 Lactulose (Enulose) 20 gm DAILY PRN PO CONSTIPATION; Start 01/25/19 at 15:00 Bisacodyl (Dulcolax Supp) 10 mg DAILY PRN [place] CONSTIPATION; Start 01/25/19 at 15:00 Miscellaneous Information (Pending [facility] Order For Wound Care) This patient cruz... PRN PRN XX WOUND CARE; Start 01/25/19 at 15:00 Albuterol (Ventolin Hfa) 2 puff Q4H RESP THERAPY PRN INH SHORTNESS OF BREATH; Start 01/25/19 at 15:00 Aspirin (Aspirin) 81 mg DAILY PO Last administered on 02/07/19 08:08; Admin Dose 81 MG; Start 01/26/19 at 09:00 Diphenhydramine HCl (Benadryl) 25 mg Q4 PRN IV itching; Start 01/25/19 at 15:00 Donepezil HCl (Aricept) 10 mg DAILY PO Last administered on 02/07/19 08:08; Admin Dose 10 MG; Start 01/26/19 at 09:00 Enoxaparin Sodium (Lovenox) 30 mg DAILY SC Last administered on 02/07/19 08:10; Admin Dose 30 MG; Start 01/26/19 at 09:00 Levothyroxine Sodium (Synthroid) 75 mcg DAILY@06 PO Last administered on 02/07/19 06:12; Admin Dose 75 MCG; Start 01/26/19 at 06:00 Naloxone HCl (Narcan) 0.2 mg Q2M PRN IV OD; Start 01/25/19 at 15:00 Ondansetron HCl (Zofran Inj) 4 mg Q6H PRN IV NAUSEA AND/OR VOMITING Last administered on 01/27/19 12:39; Admin Dose 4 MG; Start 01/25/19 at 15:00 Pantoprazole (Protonix Tab) 40 mg DAILY@06 PO Last administered on 02/07/19 06:12; Admin Dose 40 MG; Start 01/26/19 at 06:00 Sacubitril/ Valsartan (Entresto 24 Mg-26 Mg) 1 tab BID PO Last administered on 02/07/19 08:08; Admin Dose 1 TAB; Start 01/27/19 at 21:00 Atorvastatin Calcium (Lipitor) 10 mg HS PO Last administered on 02/06/19 20:24; Admin Dose 10 MG; Start 01/27/19 at 21:00 Memantine (Namenda) 10 mg BID PO Last administered on 02/07/19 08:08; Admin Dose 10 MG; Start 01/27/19 at 21:00 Gabapentin (Neurontin) 300 mg TID PO Last administered on 02/07/19 08:08; Admin Dose 300 MG; Start 01/29/19 at 13:00 Metoprolol Tartrate (Lopressor) 12.5 mg DAILY PO Last administered on 02/07/19 08:09; Admin Dose 12.5 MG; Start 02/03/19 at 09:00 Acetaminophen (Tylenol Tab) 1,000 mg Q8H PO Last administered on 02/07/19 06:12; Admin Dose 1,000 MG; Start 02/03/19 at 15:00 Hydromorphone HCl (Dilaudid) 0.5 mg Q2H PRN [place] BREAKTHROUGH PAIN Last administered on 02/05/19 08:21; Admin Dose 0.5 MG; Start 02/03/19 at 08:30 Oxycodone HCl (Roxicodone) 5 mg Q4H PRN PO MODERATE PAIN LEVEL 4-6 Last administered on 02/03/19 20:14; Admin Dose 5 MG; Start 02/03/19 at 08:30 Oxycodone HCl (Roxicodone) 10 mg Q4H PRN PO MODERATE PAIN LEVEL 7-10; Start 02/03/19 at 08:30 JAMES RUEDA NP Feb 07, 2019 09:25
--- NOTE | 2019-02-07 11:00 | PN ---
Date/Time of Note Date/Time of Note DATE: 02/07/19 TIME: 10:58 Subjective Patient doing well Objective Vital Signs Date Temp Pulse Resp B/P (MAP) Pulse Ox O2 O2 Flow FiO2 Time Delivery Rate 02/07/19 98.2 72 16 133/62 93 Room Air 08:00 (85) Intake and Output 02/06/19 02/06/19 02/07/19 1515:00 23:00 07:00 IntakeIntake Total 800 ml 2120 ml OutputOutput Total 400 ml 600 ml BalanceBalance 400 ml 1520 ml Exam pulm-cta abd-soft min/cga 65 feet Results/Medications Medications Current Medications Docusate Sodium (Colace) 100 mg BID PO Last administered on 02/07/19at 08:08; Admin Dose 100 MG; Start 01/25/19 at 21:00 Senna (Senokot) 1 tab HS PO Last administered on 02/06/19at 20:24; Admin Dose 1 TAB; Start 01/25/19 at 21:00 Magnesium Hydroxide (Milk Of Mag) 30 ml BID PRN PO CONSTIPATION; Start 01/25/19 at 15:00 Lactulose (Enulose) 20 gm DAILY PRN PO CONSTIPATION; Start 01/25/19 at 15:00 Bisacodyl (Dulcolax Supp) 10 mg DAILY PRN [place] CONSTIPATION; Start 01/25/19 at 15:00 [facility] This patient cruz... PRN PRN XX WOUND CARE; Start 01/25/19 at 15:00 Albuterol (Ventolin Hfa) 2 puff Q4H RESP THERAPY PRN INH SHORTNESS OF BREATH; Start 01/25/19 at 15:00 Aspirin (Aspirin) 81 mg DAILY PO Last administered on 02/07/19at 08:08; Admin Dose 81 MG; Start 01/26/19 at 09:00 Diphenhydramine HCl (Benadryl) 25 mg Q4 PRN IV itching; Start 01/25/19 at 15:00 Donepezil HCl (Aricept) 10 mg DAILY PO Last administered on 02/07/19at 08:08; Admin Dose 10 MG; Start 01/26/19 at 09:00 Enoxaparin Sodium (Lovenox) 30 mg DAILY SC Last administered on 7/15/19at 08:10; Admin Dose 30 MG; Start 01/26/19 at 09:00 Levothyroxine Sodium (Synthroid) 75 mcg DAILY@06 PO Last administered on 02/07/19 06:12; Admin Dose 75 MCG; Start 01/26/19 at 06:00 Naloxone HCl (Narcan) 0.2 mg Q2M PRN IV OD; Start 01/25/19 at 15:00 Ondansetron HCl (Zofran Inj) 4 mg Q6H PRN IV NAUSEA AND/OR VOMITING Last administered on 01/27/19 12:39; Admin Dose 4 MG; Start 01/25/19 at 15:00 Pantoprazole (Protonix Tab) 40 mg DAILY@06 PO Last administered on 02/07/19 06:12; Admin Dose 40 MG; Start 01/26/19 at 06:00 Sacubitril/ Valsartan (Entresto 24 Mg-26 Mg) 1 tab BID PO Last administered on 02/07/19 08:08; Admin Dose 1 TAB; Start 01/27/19 at 21:00 Atorvastatin Calcium (Lipitor) 10 mg HS PO Last administered on 02/06/19 20:24; Admin Dose 10 MG; Start 01/27/19 at 21:00 Memantine (Namenda) 10 mg BID PO Last administered on 02/07/19 08:08; Admin Dose 10 MG; Start 01/27/19 at 21:00 Gabapentin (Neurontin) 300 mg TID PO Last administered on 02/07/19 08:08; Admin Dose 300 MG; Start 01/29/19 at 13:00 Metoprolol Tartrate (Lopressor) 12.5 mg DAILY PO Last administered on 02/07/19 08:09; Admin Dose 12.5 MG; Start 02/03/19 at 09:00 Acetaminophen (Tylenol Tab) 1,000 mg Q8H PO Last administered on 02/07/19 06:12; Admin Dose 1,000 MG; Start 02/03/19 at 15:00 Hydromorphone HCl (Dilaudid) 0.5 mg Q2H PRN [place] BREAKTHROUGH PAIN Last administered on 02/05/19 08:21; Admin Dose 0.5 MG; Start 02/03/19 at 08:30 Oxycodone HCl (Roxicodone) 5 mg Q4H PRN PO MODERATE PAIN LEVEL 4-6 Last administered on 02/03/19at 20:14; Admin Dose 5 MG; Start 02/03/19 at 08:30 Oxycodone HCl (Roxicodone) 10 mg Q4H PRN PO MODERATE PAIN LEVEL 7-10; Start 02/03/19 at 08:30 Assessment/Plan Additional Assessment/Plan Rehabilitation-status post acute right hip fracture ORIF PWB Overall making progress with treatment plan. Working towards [place] home this week Coronary artery disease, currently stable. Type 2 diabetes- monitor . Essential hypertension Hyperlipidemia. anemia. DALIA LIANG MD Feb 07, 2019 11:00
[2019-02-07 14:00] VITALS: BP 130/60; PULSE 70; RESP 18
[2019-02-07 20:00] VITALS: BP 147/65; PULSE 68; RESP 18
[2019-02-07] MEDS: ATORVASTATIN 10 MG TAB PO SCH (20:32)
[2019-02-07] MEDS: SENNA TAB PO SCH (20:32)
[2019-02-08] MEDS: oxyCODONE 5 MG TAB PO PRN ×2 (02:05→07:36)
[2019-02-08 02:33] VITALS: BP 137/63; PULSE 81; RESP 18
[2019-02-08] MEDS: LEVOTHYROXINE 75 MCG TAB PO SCH (06:30)
[2019-02-08] MEDS: PANTOPRAZOLE (EC) 40 MG TAB PO SCH (06:30)
[2019-02-08] MEDS: ACETAMINOPHEN 500 MG TAB PO SCH ×3 (06:30→22:21)
[2019-02-08 07:00] VITALS: BP 166/67; PULSE 85; RESP 18
[2019-02-08] MEDS: ASPIRIN 81 MG TAB PO SCH (08:24)
[2019-02-08] MEDS: DONEPEZIL 10 MG TAB PO SCH (08:24)
[2019-02-08] MEDS: MEMANTINE 10 MG TAB PO SCH ×2 (08:24→20:30)
[2019-02-08] MEDS: DOCUSATE SODIUM 100 MG CAP PO SCH ×2 (08:24→20:30)
[2019-02-08] MEDS: GABAPENTIN 300 MG CAP PO SCH ×3 (08:25→20:30)
[2019-02-08] MEDS: SACUBITRIL/VALSARTAN (24mg-26mg) TABLET PO SCH ×2 (08:25→20:30)
[2019-02-08] MEDS: METOPROLOL 25 MG TAB PO SCH (08:25)
[2019-02-08] MEDS: ENOXAPARIN 30 MG/0.3 ML SYG SC SCH (08:26)
--- NOTE | 2019-02-08 11:48 | PN ---
Date/Time of Note Date/Time of Note DATE: 02/08/19 TIME: 11:47 Subjective Doing well, pain controlled Objective Vital Signs Date Temp Pulse Resp B/P (MAP) Pulse Ox O2 O2 Flow FiO2 Time Delivery Rate 02/08/19 97.7 85 18 166/67 94 Room Air 07:00 (100) Intake and Output 02/07/19 02/07/19 02/08/19 1515:00 23:00 07:00 IntakeIntake Total 930 ml 100 ml BalanceBalance 930 ml 100 ml Exam pulm-cta abd-soft sba ambulation 100 feet Results/Medications Medications Current Medications Docusate Sodium (Colace) 100 mg BID PO Last administered on 02/08/19 08:24; Admin Dose 100 MG; Start 01/25/19 at 21:00 Senna (Senokot) 1 tab HS PO Last administered on 02/07/19at 20:32; Admin Dose 1 TAB; Start 01/25/19 at 21:00 Magnesium Hydroxide (Milk Of Mag) 30 ml BID PRN PO CONSTIPATION; Start 01/25/19 at 15:00 Lactulose (Enulose) 20 gm DAILY PRN PO CONSTIPATION; Start 01/25/19 at 15:00 Bisacodyl (Dulcolax Supp) 10 mg DAILY PRN [place] CONSTIPATION; Start 01/25/19 at 15:00 Miscellaneous Information [facility] This patient cruz... PRN PRN XX WOUND CARE; Start 01/25/19 at 15:00 Albuterol (Ventolin Hfa) 2 puff Q4H RESP THERAPY PRN INH SHORTNESS OF BREATH; Start 01/25/19 at 15:00 Aspirin (Aspirin) 81 mg DAILY PO Last administered on 02/08/19at 08:24; Admin Dose 81 MG; Start 01/26/19 at 09:00 Diphenhydramine HCl (Benadryl) 25 mg Q4 PRN IV itching; Start 01/25/19 at 15:00 Donepezil HCl (Aricept) 10 mg DAILY PO Last administered on 02/08/19at 08:24; Admin Dose 10 MG; Start 01/26/19 at 09:00 Enoxaparin Sodium (Lovenox) 30 mg DAILY SC Last administered on 02/08/19at 08:2 6; Admin Dose 30 MG; Start 01/26/19 at 09:00 Levothyroxine Sodium (Synthroid) 75 mcg DAILY@06 PO Last administered on 02/08/19 06:30; Admin Dose 75 MCG; Start 01/26/19 at 06:00 Naloxone HCl (Narcan) 0.2 mg Q2M PRN IV OD; Start 01/25/19 at 15:00 Ondansetron HCl (Zofran Inj) 4 mg Q6H PRN IV NAUSEA AND/OR VOMITING Last administered on 01/27/19 12:39; Admin Dose 4 MG; Start 01/25/19 at 15:00 Pantoprazole (Protonix Tab) 40 mg DAILY@06 PO Last administered on 02/08/19 06:30; Admin Dose 40 MG; Start 01/26/19 at 06:00 Sacubitril/ Valsartan (Entresto 24 Mg-26 Mg) 1 tab BID PO Last administered on 02/08/19 08:25; Admin Dose 1 TAB; Start 01/27/19 at 21:00 Atorvastatin Calcium (Lipitor) 10 mg HS PO Last administered on 02/07/19 20:32; Admin Dose 10 MG; Start 01/27/19 at 21:00 Memantine (Namenda) 10 mg BID PO Last administered on 02/08/19 08:24; Admin Dose 10 MG; Start 01/27/19 at 21:00 Gabapentin (Neurontin) 300 mg TID PO Last administered on 02/08/19 08:25; Admin Dose 300 MG; Start 01/29/19 at 13:00 Metoprolol Tartrate (Lopressor) 12.5 mg DAILY PO Last administered on 02/08/19 08:25; Admin Dose 12.5 MG; Start 02/03/19 at 09:00 Acetaminophen (Tylenol Tab) 1,000 mg Q8H PO Last administered on 02/08/19 06:30; Admin Dose 1,000 MG; Start 02/03/19 at 15:00 Hydromorphone HCl (Dilaudid) 0.5 mg Q2H PRN [place] BREAKTHROUGH PAIN Last administered on 02/05/19 08:21; Admin Dose 0.5 MG; Start 02/03/19 at 08:30 Oxycodone HCl (Roxicodone) 5 mg Q4H PRN PO MODERATE PAIN LEVEL 4-6 Last administered on 02/08/19at 07:36; Admin Dose 5 MG; Start 02/03/19 at 08:30 Oxycodone HCl (Roxicodone) 10 mg Q4H PRN PO MODERATE PAIN LEVEL 7-10; Start 02/03/19 at 08:30 Assessment/Plan Additional Assessment/Plan Rehabilitation-status post acute right hip fracture ORIF PWB Progress discussed with patient and family. Working towrds home 02/11 Coronary artery disease, currently stable. Type 2 diabetes- monitor . Essential hypertension Hyperlipidemia. anemia. DALIA LIANG MD Feb 08, 2019 11:48
[2019-02-08 14:00] VITALS: BP 130/58; PULSE 78; RESP 18
--- NOTE | 2019-02-08 14:01 | PN ---
Date/Time of Note Date/Time of Note DATE: 02/08/19 TIME: 14:00 Assessment/Plan VTE Prophylaxis Risk score (from Ns)>0 risk: 11 SCD applied (from Ns): Yes Pharmacological prophylaxis: LMWH Lines/Catheters IV Catheter Type (from Nrsg): Saline Lock Urinary Cath still in place: No Assessment/Plan Hospital Course SUBJECTIVE:no acute episodes OBJECTIVE: Vital signs-see below PHYSICAL EXAM: Constitutional: Elderly female,not in acute distress. HEENT: Head atraumatic and normocephalic. Eyes: Extraocular muscles intact. Anicteric sclerae. Pupils equal bilaterally, reactive to light. NECK: Supple without lymph node. CHEST: Clear and good breath sounds equally. No wheezing. No rhonchi. HEART: S1, S2. Regular rate and rhythm. ABDOMEN: Soft/non tender with no rebound tenderness. Bowel sounds were present. EXTREMITIES: RLE surgical dressing c/d/i. no cyanosis, clubbing or edema. NEUROLOGIC: Alert and oriented x3. No focal deficit. No sensory deficit. PSYCHOSOCIAL: No signs of depression. INTEGUMENTARY: No open wounds. ASSESSMENT AND PLAN: Acute right hip fracture -s/p medullary pinning by Dr. Lara on 01/22. -dvt ppx,pain control,pt/rehab. Coronary artery disease: History of CABG. -cont. aspirin, beta-blockers,statin CHF/Cardiomyopathy -clinically stable-latest ef 40% -cont. bb/ entresto as tolerated Acute on chronic iron deficient anemia -cont.iron sup Hypertension -now stable -cont. bb/entresto as tolerated Hyperlipidemia - Continue statin Dementia - Continue Aricept/ Namenda Hypothyroidism -On Synthroid UTI -s/p treatment DVT GI prophylaxis: LOVENOX Patient was seen in collaboration with Exam/Review of Systems Exam Vitals Vital Signs Date Temp Pulse Resp B/P (MAP) Pulse Ox O2 O2 Flow FiO2 Time Delivery Rate 02/08/19 97.7 85 18 166/67 94 Room Air 07:00 (100) Intake and Output 02/07/19 02/07/19 02/08/19 1515:00 23:00 07:00 IntakeIntake Total 930 ml 100 ml BalanceBalance 930 ml 100 ml Medications Medication Current Medications Docusate Sodium (Colace) 100 mg BID PO Last administered on 02/08/19 08:24; Admin Dose 100 MG; Start 01/25/19 at 21:00 Senna (Senokot) 1 tab HS PO Last administered on 02/07/19 20:32; Admin Dose 1 TAB; Start 01/25/19 at 21:00 Magnesium Hydroxide (Milk Of Mag) 30 ml BID PRN PO CONSTIPATION; Start 01/25/19 at 15:00 Lactulose (Enulose) 20 gm DAILY PRN PO CONSTIPATION; Start 01/25/19 at 15:00 Bisacodyl (Dulcolax Supp) 10 mg DAILY PRN [place] CONSTIPATION; Start 01/25/19 at 15:00 Miscellaneous Information (Pending [facility] Order For Wound Care) This patient cruz... PRN PRN XX WOUND CARE; Start 01/25/19 at 15:00 Albuterol (Ventolin Hfa) 2 puff Q4H RESP THERAPY PRN INH SHORTNESS OF BREATH; Start 01/25/19 at 15:00 Aspirin (Aspirin) 81 mg DAILY PO Last administered on 02/08/19 08:24; Admin Dose 81 MG; Start 01/26/19 at 09:00 Diphenhydramine HCl (Benadryl) 25 mg Q4 PRN IV itching; Start 01/25/19 at 15:00 Donepezil HCl (Aricept) 10 mg DAILY PO Last administered on 02/08/19 08:24; Admin Dose 10 MG; Start 01/26/19 at 09:00 Enoxaparin Sodium (Lovenox) 30 mg DAILY SC Last administered on 02/08/19 08:26; Admin Dose 30 MG; Start 01/26/19 at 09:00 Levothyroxine Sodium (Synthroid) 75 mcg DAILY@06 PO Last administered on 02/08/19 06:30; Admin Dose 75 MCG; Start 01/26/19 at 06:00 Naloxone HCl (Narcan) 0.2 mg Q2M PRN IV OD; Start 01/25/19 at 15:00 Ondansetron HCl (Zofran Inj) 4 mg Q6H PRN IV NAUSEA AND/OR VOMITING Last administered on 01/27/19 12:39; Admin Dose 4 MG; Start 01/25/19 at 15:00 Pantoprazole (Protonix Tab) 40 mg DAILY@06 PO Last administered on 02/08/19 06:30; Admin Dose 40 MG; Start 01/26/19 at 06:00 Sacubitril/ Valsartan (Entresto 24 Mg-26 Mg) 1 tab BID PO Last administered on 02/08/19 08:25; Admin Dose 1 TAB; Start 01/27/19 at 21:00 Atorvastatin Calcium (Lipitor) 10 mg HS PO Last administered on 02/07/19 20:32; Admin Dose 10 MG; Start 01/27/19 at 21:00 Memantine (Namenda) 10 mg BID PO Last administered on 02/08/19 08:24; Admin Dose 10 MG; Start 01/27/19 at 21:00 Gabapentin (Neurontin) 300 mg TID PO Last administered on 02/08/19 13:27; Admin Dose 300 MG; Start 01/29/19 at 13:00 Metoprolol Tartrate (Lopressor) 12.5 mg DAILY PO Last administered on 02/08/19 08:25; Admin Dose 12.5 MG; Start 02/03/19 at 09:00 Acetaminophen (Tylenol Tab) 1,000 mg Q8H PO Last administered on 02/08/19 06:30; Admin Dose 1,000 MG; Start 02/03/19 at 15:00 Hydromorphone HCl (Dilaudid) 0.5 mg Q2H PRN [place] BREAKTHROUGH PAIN Last administered on 02/05/19 08:21; Admin Dose 0.5 MG; Start 02/03/19 at 08:30 Oxycodone HCl (Roxicodone) 5 mg Q4H PRN PO MODERATE PAIN LEVEL 4-6 Last administered on 02/08/19 07:36; Admin Dose 5 MG; Start 02/03/19 at 08:30 Oxycodone HCl (Roxicodone) 10 mg Q4H PRN PO MODERATE PAIN LEVEL 7-10; Start 02/03/19 at 08:30 JAMES RUEDA NP Feb 08, 2019 14:01
[2019-02-08 20:00] VITALS: BP 108/52; PULSE 80; RESP 18
[2019-02-08] MEDS: ATORVASTATIN 10 MG TAB PO SCH (20:30)
[2019-02-08] MEDS: SENNA TAB PO SCH (20:30)
[2019-02-09 02:00] VITALS: BP 126/57; PULSE 77; RESP 18
[2019-02-09] MEDS: LEVOTHYROXINE 75 MCG TAB PO SCH (05:46)
[2019-02-09] MEDS: PANTOPRAZOLE (EC) 40 MG TAB PO SCH (05:46)
[2019-02-09] MEDS: ACETAMINOPHEN 500 MG TAB PO SCH ×4 (06:14→23:00)
[2019-02-09 07:30] VITALS: BP 127/59; PULSE 79; RESP 20
[2019-02-09] MEDS: HYDROmorphONE 0.5 MG/0.5 ML SYG SC PRN ×5 (07:59→18:11)
[2019-02-09] MEDS: MEMANTINE 10 MG TAB PO SCH ×2 (08:31→20:22)
[2019-02-09] MEDS: DOCUSATE SODIUM 100 MG CAP PO SCH ×2 (08:31→20:22)
[2019-02-09] MEDS: DONEPEZIL 10 MG TAB PO SCH (08:31)
[2019-02-09] MEDS: GABAPENTIN 300 MG CAP PO SCH ×3 (08:31→20:22)
[2019-02-09] MEDS: ASPIRIN 81 MG TAB PO SCH (08:31)
[2019-02-09] MEDS: SACUBITRIL/VALSARTAN (24mg-26mg) TABLET PO SCH ×2 (08:54→20:22)
[2019-02-09] MEDS: METOPROLOL 25 MG TAB PO SCH (08:55)
[2019-02-09] MEDS: ENOXAPARIN 30 MG/0.3 ML SYG SC SCH (10:47)
--- NOTE | 2019-02-09 13:21 | PN ---
Date/Time of Note Date/Time of Note DATE: 02/09/19 TIME: 13:20 Assessment/Plan VTE Prophylaxis Risk score (from Ns)>0 risk: 10 SCD applied (from Ns): Yes Pharmacological prophylaxis: LMWH Lines/Catheters IV Catheter Type (from Nrs): Saline Lock Urinary Cath still in place: No Assessment/Plan Hospital Course SUBJECTIVE:no acute episodes OBJECTIVE: Vital signs-see below PHYSICAL EXAM: Constitutional: Elderly female,not in acute distress. HEENT: Head atraumatic and normocephalic. Eyes: Extraocular muscles intact. Anicteric sclerae. Pupils equal bilaterally, reactive to light. NECK: Supple without lymph node. CHEST: Clear and good breath sounds equally. No wheezing. No rhonchi. HEART: S1, S2. Regular rate and rhythm. ABDOMEN: Soft/non tender with no rebound tenderness. Bowel sounds were present. EXTREMITIES: RLE surgical site c/d/i. no cyanosis, clubbing or edema. NEUROLOGIC: Alert and oriented x3. No focal deficit. No sensory deficit. PSYCHOSOCIAL: No signs of depression. INTEGUMENTARY: No open wounds. ASSESSMENT AND PLAN: Acute right hip fracture -s/p medullary pinning by Dr. Lara on 01/22. -dvt ppx,pain control,pt/rehab. Coronary artery disease: History of CABG. -cont. aspirin, beta-blockers,statin CHF/Cardiomyopathy -clinically stable-latest ef 40% -cont. bb/ entresto as tolerated Acute on chronic iron deficient anemia -cont.iron sup Hypertension -now stable -cont. bb/entresto as tolerated Hyperlipidemia - Continue statin Dementia - Continue Aricept/ Namenda Hypothyroidism -On Synthroid UTI -s/p treatment DVT GI prophylaxis: LOVENOX Patient was seen in collaboration with Exam/Review of Systems Exam Vitals Vital Signs Date Temp Pulse Resp B/P (MAP) Pulse Ox O2 O2 Flow FiO2 Time Delivery Rate 02/09/19 98.1 79 20 127/59 96 Room Air 07:30 (81) Intake and Output 02/08/19 02/08/19 02/09/19 1515:00 23:00 07:00 IntakeIntake Total 800 ml 1800 ml 400 ml OutputOutput Total 300 ml 800 ml BalanceBalance 500 ml 1000 ml 400 ml Medications Medication Current Medications Docusate Sodium (Colace) 100 mg BID PO Last administered on 02/09/19 08:31; Admin Dose 100 MG; Start 01/25/19 at 21:00 Senna (Senokot) 1 tab HS PO Last administered on 02/08/19 20:30; Admin Dose 1 TAB; Start 01/25/19 at 21:00 Magnesium Hydroxide (Milk Of Mag) 30 ml BID PRN PO CONSTIPATION; Start 01/25/19 at 15:00 Lactulose (Enulose) 20 gm DAILY PRN PO CONSTIPATION; Start 01/25/19 at 15:00 Bisacodyl (Dulcolax Supp) 10 mg DAILY PRN [place] CONSTIPATION; Start 01/25/19 at 15:00 Miscellaneous Information (Pending [facility] Order For Wound Care) This patient cruz... PRN PRN XX WOUND CARE; Start 01/25/19 at 15:00 Albuterol (Ventolin Hfa) 2 puff Q4H RESP THERAPY PRN INH SHORTNESS OF BREATH; Start 01/25/19 at 15:00 Aspirin (Aspirin) 81 mg DAILY PO Last administered on 02/09/19 08:31; Admin Dose 81 MG; Start 01/26/19 at 09:00 Diphenhydramine HCl (Benadryl) 25 mg Q4 PRN IV itching; Start 01/25/19 at 15:00 Donepezil HCl (Aricept) 10 mg DAILY PO Last administered on 02/09/19 08:31; Admin Dose 10 MG; Start 01/26/19 at 09:00 Enoxaparin Sodium (Lovenox) 30 mg DAILY SC Last administered on 02/09/19at 10:47; Admin Dose 30 MG; Start 01/26/19 at 09:00 Levothyroxine Sodium (Synthroid) 75 mcg DAILY@06 PO Last administered on 02/09/19 05:46; Admin Dose 75 MCG; Start 01/26/19 at 06:00 Naloxone HCl (Narcan) 0.2 mg Q2M PRN IV OD; Start 01/25/19 at 15:00 Ondansetron HCl (Zofran Inj) 4 mg Q6H PRN IV NAUSEA AND/OR VOMITING Last administered on 01/27/19 12:39; Admin Dose 4 MG; Start 01/25/19 at 15:00 Pantoprazole (Protonix Tab) 40 mg DAILY@06 PO Last administered on 02/09/19 05:46; Admin Dose 40 MG; Start 01/26/19 at 06:00 Sacubitril/ Valsartan (Entresto 24 Mg-26 Mg) 1 tab BID PO Last administered on 02/09/19 08:54; Admin Dose 1 TAB; Start 01/27/19 at 21:00 Atorvastatin Calcium (Lipitor) 10 mg HS PO Last administered on 02/08/19 20:30; Admin Dose 10 MG; Start 01/27/19 at 21:00 Memantine (Namenda) 10 mg BID PO Last administered on 02/09/19 08:31; Admin Dose 10 MG; Start 01/27/19 at 21:00 Gabapentin (Neurontin) 300 mg TID PO Last administered on 02/09/19 12:45; Admin Dose 300 MG; Start 01/29/19 at 13:00 Metoprolol Tartrate (Lopressor) 12.5 mg DAILY PO Last administered on 02/09/19 08:55; Admin Dose 12.5 MG; Start 02/03/19 at 09:00 Acetaminophen (Tylenol Tab) 1,000 mg Q8H PO Last administered on 02/09/19 06:14; Admin Dose 1,000 MG; Start 02/03/19 at 15:00 Hydromorphone HCl (Dilaudid) 0.5 mg Q2H PRN [place] BREAKTHROUGH PAIN Last administered on 02/09/19 12:45; Admin Dose 0.5 MG; Start 02/03/19 at 08:30 Oxycodone HCl (Roxicodone) 5 mg Q4H PRN PO MODERATE PAIN LEVEL 4-6 Last administered on 02/08/19 07:36; Admin Dose 5 MG; Start 02/03/19 at 08:30 Oxycodone HCl (Roxicodone) 10 mg Q4H PRN PO MODERATE PAIN LEVEL 7-10; Start 02/03/19 at 08:30 JAMES RUEDA NP Feb 09, 2019 13:21
[2019-02-09 14:00] VITALS: BP 115/55; PULSE 74; RESP 18
--- NOTE | 2019-02-09 14:23 | PN ---
Date/Time of Note Date/Time of Note DATE: 02/09/19 TIME: 14:22 Subjective In good spirits Objective Vital Signs Date Temp Pulse Resp B/P (MAP) Pulse Ox O2 O2 Flow FiO2 Time Delivery Rate 02/09/19 98.1 79 20 127/59 96 Room Air 07:30 (81) Intake and Output 02/08/19 02/08/19 02/09/19 1515:00 23:00 07:00 IntakeIntake Total 800 ml 1800 ml 400 ml OutputOutput Total 300 ml 800 ml BalanceBalance 500 ml 1000 ml 400 ml Exam pulm-cta abd-soft s/ME ambulation 150 feet Results/Medications Medications Current Medications Docusate Sodium (Colace) 100 mg BID PO Last administered on 02/09/19at 08:31; Admin Dose 100 MG; Start 01/25/19 at 21:00 Senna (Senokot) 1 tab HS PO Last administered on 02/08/19at 20:30; Admin Dose 1 TAB; Start 01/25/19 at 21:00 Magnesium Hydroxide (Milk Of Mag) 30 ml BID PRN PO CONSTIPATION; Start 01/25/19 at 15:00 Lactulose (Enulose) 20 gm DAILY PRN PO CONSTIPATION; Start 01/25/19 at 15:00 Bisacodyl (Dulcolax Supp) 10 mg DAILY PRN [place] CONSTIPATION; Start 01/25/19 at 15:00 Miscellaneous Information (Pending [facility] Order For Wound Care) This patient cruz ... PRN PRN XX WOUND CARE; Start 01/25/19 at 15:00 Albuterol (Ventolin Hfa) 2 puff Q4H RESP THERAPY PRN INH SHORTNESS OF BREATH; Start 01/25/19 at 15:00 Aspirin (Aspirin) 81 mg DAILY PO Last administered on 02/09/19at 08:31; Admin Dose 81 MG; Start 01/26/19 at 09:00 Diphenhydramine HCl (Benadryl) 25 mg Q4 PRN IV itching; Start 01/25/19 at 15:00 Donepezil HCl (Aricept) 10 mg DAILY PO Last administered on 02/09/19at 08:31; Admin Dose 10 MG; Start 01/26/19 at 09:00 Enoxaparin Sodium (Lovenox) 30 mg DAILY SC Last administered on 02/09/19 10:47; Admin Dose 30 MG; Start 01/26/19 at 09:00 Levothyroxine Sodium (Synthroid) 75 mcg DAILY@06 PO Last administered on 02/09/19 05:46; Admin Dose 75 MCG; Start 01/26/19 at 06:00 Naloxone HCl (Narcan) 0.2 mg Q2M PRN IV OD; Start 01/25/19 at 15:00 Ondansetron HCl (Zofran Inj) 4 mg Q6H PRN IV NAUSEA AND/OR VOMITING Last administered on 01/27/19 12:39; Admin Dose 4 MG; Start 01/25/19 at 15:00 Pantoprazole (Protonix Tab) 40 mg DAILY@06 PO Last administered on 02/09/19 05:46; Admin Dose 40 MG; Start 01/26/19 at 06:00 Sacubitril/ Valsartan (Entresto 24 Mg-26 Mg) 1 tab BID PO Last administered on 02/09/19 08:54; Admin Dose 1 TAB; Start 01/27/19 at 21:00 Atorvastatin Calcium (Lipitor) 10 mg HS PO Last administered on 02/08/19 20:30; Admin Dose 10 MG; Start 01/27/19 at 21:00 Memantine (Namenda) 10 mg BID PO Last administered on 02/09/19 08:31; Admin Dose 10 MG; Start 01/27/19 at 21:00 Gabapentin (Neurontin) 300 mg TID PO Last administered on 02/09/19 12:45; Admin Dose 300 MG; Start 01/29/19 at 13:00 Metoprolol Tartrate (Lopressor) 12.5 mg DAILY PO Last administered on 02/09/19 08:55; Admin Dose 12.5 MG; Start 02/03/19 at 09:00 Acetaminophen (Tylenol Tab) 1,000 mg Q8H PO Last administered on 02/09/19 06:14; Admin Dose 1,000 MG; Start 02/03/19 at 15:00 Hydromorphone HCl (Dilaudid) 0.5 mg Q2H PRN SC BREAKTHROUGH PAIN Last administered on 02/09/19 12:45; Admin Dose 0.5 MG; Start 02/03/19 at 08:30 Oxycodone HCl (Roxicodone) 5 mg Q4H PRN PO MODERATE PAIN LEVEL 4-6 Last administered on 02/08/19at 07:36; Admin Dose 5 MG; Start 02/03/19 at 08:30 Oxycodone HCl (Roxicodone) 10 mg Q4H PRN PO MODERATE PAIN LEVEL 7-10; Start 02/03/19 at 08:30 Assessment/Plan Additional Assessment/Plan Rehabilitation-status post acute right hip fracture ORIF PWB Great gains, continue rehab and family training with dc 02/11 Coronary artery disease, currently stable. Type 2 diabetes- monitor . Essential hypertension Hyperlipidemia. anemia. DALIA LIANG MD Feb 09, 2019 14:23
[2019-02-09 20:21] VITALS: BP 122/58; PULSE 77; RESP 18
[2019-02-09] MEDS: ATORVASTATIN 10 MG TAB PO SCH (20:22)
[2019-02-09] MEDS: SENNA TAB PO SCH (20:22)
[2019-02-09] MEDS: oxyCODONE 5 MG TAB PO PRN (20:23)
[2019-02-10 02:00] VITALS: BP 118/57; PULSE 79; RESP 18
[2019-02-10] MEDS: oxyCODONE 5 MG TAB PO PRN (02:10)
[2019-02-10] MEDS: PANTOPRAZOLE (EC) 40 MG TAB PO SCH (06:28)
[2019-02-10] MEDS: ACETAMINOPHEN 500 MG TAB PO SCH ×3 (06:28→22:51)
[2019-02-10] MEDS: LEVOTHYROXINE 75 MCG TAB PO SCH (06:28)
[2019-02-10] MEDS: HYDROmorphONE 0.5 MG/0.5 ML SYG SC PRN ×5 (07:26→18:25)
[2019-02-10 07:30] VITALS: BP 124/56; PULSE 68; RESP 18
[2019-02-10] MEDS: DONEPEZIL 10 MG TAB PO SCH (07:37)
[2019-02-10] MEDS: GABAPENTIN 300 MG CAP PO SCH ×3 (07:37→20:46)
[2019-02-10] MEDS: DOCUSATE SODIUM 100 MG CAP PO SCH ×2 (07:37→09:39)
[2019-02-10] MEDS: ASPIRIN 81 MG TAB PO SCH (07:38)
[2019-02-10] MEDS: METOPROLOL 25 MG TAB PO SCH (09:38)
[2019-02-10] MEDS: SACUBITRIL/VALSARTAN (24mg-26mg) TABLET PO SCH ×2 (09:38→20:46)
[2019-02-10] MEDS: ENOXAPARIN 30 MG/0.3 ML SYG SC SCH (09:43)
[2019-02-10] MEDS: MEMANTINE 10 MG TAB PO SCH ×2 (09:43→20:46)
--- NOTE | 2019-02-10 12:10 | PN ---
Date/Time of Note Date/Time of Note DATE: 02/10/19 TIME: 12:08 Objective Vital Signs Date Temp Pulse Resp B/P (MAP) Pulse Ox O2 O2 Flow FiO2 Time Delivery Rate 02/10/19 98.0 68 18 124/56 96 Room Air 07:30 (78) Intake and Output 02/09/19 02/09/19 02/10/19 1515:00 23:00 07:00 IntakeIntake Total 1220 ml 750 ml BalanceBalance 1220 ml 750 ml Exam INTERDISCIPLINARY TEAM CONFERENCE Attended by PT, OT, ST, Social Work, Rehabilitation Nursing, Supervisor [employer] and Vice President Of OperationsBody Mechanic Exam: Pulm- cta Abd- soft BOWEL- Cont BLADDER-Cont SKIN- intact OT- DRESSING-sba/s BATHING-sba TOILETING-sba PT- BED MOBILITY- s/WA TRANSFERS-s/WA AMBULATION-s 150 feet A/P- Interdisciplinary team conference held today. Please see interdisciplinary traci richey Working toward d.c. on 02/11 with post discharge follow up of physical therapy, occupational therapy. Results/Medications Medications Current Medications Docusate Sodium (Colace) 100 mg BID PO Last administered on 02/10/19at 09:39; Admin Dose 100 MG; Start 01/25/19 at 21:00 Senna (Senokot) 1 tab HS PO Last administered on 02/09/19at 20:22; Admin Dose 1 TAB; Start 01/25/19 at 21:00 Magnesium Hydroxide (Milk Of Mag) 30 ml BID PRN PO CONSTIPATION; Start 01/25/19 at 15:00 Lactulose (Enulose) 20 gm DAILY PRN PO CONSTIPATION; Start 01/25/19 at 15:00 Bisacodyl (Dulcolax Supp) 10 mg DAILY PRN [place] CONSTIPATION; Start 01/25/19 at 15:00 Miscellaneous Information (Pending [facility] Order For Wound Care) This patient cruz... PRN PRN XX WOUND CARE; Start 01/25/19 at 15:00 Albuterol (Ventolin Hfa) 2 puff Q4H RESP THERAPY PRN INH SHORTNESS OF BREATH; Start 01/25/19 at 15:00 Aspirin (Aspirin) 81 mg DAILY PO Last administered on 02/10/19at 07:38; Admin Dose 81 MG; Start 01/26/19 at 09:00 Diphenhydramine HCl (Benadryl) 25 mg Q4 PRN IV itching; Start 01/25/19 at 15:00 Donepezil HCl (Aricept) 10 mg DAILY PO Last administered on 02/10/19 07:37; Admin Dose 10 MG; Start 01/26/19 at 09:00 Enoxaparin Sodium (Lovenox) 30 mg DAILY SC Last administered on 02/10/19 09:43; Admin Dose 30 MG; Start 01/26/19 at 09:00 Levothyroxine Sodium (Synthroid) 75 mcg DAILY@06 PO Last administered on 02/10/19 06:28; Admin Dose 75 MCG; Start 01/26/19 at 06:00 Naloxone HCl (Narcan) 0.2 mg Q2M PRN IV OD; Start 01/25/19 at 15:00 Ondansetron HCl (Zofran Inj) 4 mg Q6H PRN IV NAUSEA AND/OR VOMITING Last administered on 01/27/19 12:39; Admin Dose 4 MG; Start 01/25/19 at 15:00 Pantoprazole (Protonix Tab) 40 mg DAILY@06 PO Last administered on 02/10/19 06:28; Admin Dose 40 MG; Start 01/26/19 at 06:00 Sacubitril/ Valsartan (Entresto 24 Mg-26 Mg) 1 tab BID PO Last administered on 02/10/19 09:38; Admin Dose 1 TAB; Start 01/27/19 at 21:00 Atorvastatin Calcium (Lipitor) 10 mg HS PO Last administered on 02/09/19 20: 22; Admin Dose 10 MG; Start 01/27/19 at 21:00 Memantine (Namenda) 10 mg BID PO Last administered on 02/10/19 09:43; Admin Dose 10 MG; Start 01/27/19 at 21:00 Gabapentin (Neurontin) 300 mg TID PO Last administered on 02/10/19 07:37; Admin Dose 300 MG; Start 01/29/19 at 13:00 Metoprolol Tartrate (Lopressor) 12.5 mg DAILY PO Last administered on 02/10/19 09:38; Admin Dose 12.5 MG; Start 02/03/19 at 09:00 Acetaminophen (Tylenol Tab) 1,000 mg Q8H PO Last administered on 02/10/19 06:28; Admin Dose 1,000 MG; Start 02/03/19 at 15:00 Hydromorphone HCl (Dilaudid) 0.5 mg Q2H PRN SC BREAKTHROUGH PAIN Last administered on 02/10/19at 10:46; Admin Dose 0.5 MG; Start 02/03/19 at 08:30 Oxycodone HCl (Roxicodone) 5 mg Q4H PRN PO MODERATE PAIN LEVEL 4-6 Last administered on 02/08/19at 07:36; Admin Dose 5 MG; Start 02/03/19 at 08:30 Oxycodone HCl (Roxicodone) 10 mg Q4H PRN PO MODERATE PAIN LEVEL 7-10 Last administered on 02/10/19 02:10; Admin Dose 10 MG; Start 02/03/19 at 08:30 DALIA LIANG MD Feb 10, 2019 12:10
[2019-02-10 14:00] VITALS: BP 127/60; PULSE 80; RESP 18
--- NOTE | 2019-02-10 14:32 | PN ---
Date/Time of Note Date/Time of Note DATE: 02/10/19 TIME: 14:32 Assessment/Plan VTE Prophylaxis Risk score (from Ns)>0 risk: 10 SCD applied (from Ns): Yes Pharmacological prophylaxis: LMWH Lines/Catheters IV Catheter Type (from Nrs): Saline Lock Urinary Cath still in place: No Assessment/Plan Hospital Course SUBJECTIVE:no acute episodes OBJECTIVE: Vital signs-see below PHYSICAL EXAM: Constitutional: Elderly female,not in acute distress. HEENT: Head atraumatic and normocephalic. Eyes: Extraocular muscles intact. Anicteric sclerae. Pupils equal bilaterally, reactive to light. NECK: Supple without lymph node. CHEST: Clear and good breath sounds equally. No wheezing. No rhonchi. HEART: S1, S2. Regular rate and rhythm. ABDOMEN: Soft/non tender with no rebound tenderness. Bowel sounds were present. EXTREMITIES: RLE surgical site c/d/i. no cyanosis, clubbing or edema. NEUROLOGIC: Alert and oriented x3. No focal deficit. No sensory deficit. PSYCHOSOCIAL: No signs of depression. INTEGUMENTARY: No open wounds. ASSESSMENT AND PLAN: Acute right hip fracture -s/p medullary pinning by Dr. Lara on 01/22. -dvt ppx,pain control,pt/rehab. Coronary artery disease: History of CABG. -cont. aspirin, beta-blockers,statin CHF/Cardiomyopathy -clinically stable-latest ef 40% -cont. bb/ entresto as tolerated Acute on chronic iron deficient anemia -cont.iron sup Hypertension -now stable -cont. bb/entresto as tolerated Hyperlipidemia - Continue statin Dementia - Continue Aricept/ Namenda Hypothyroidism -On Synthroid UTI -s/p treatment DVT GI prophylaxis: LOVENOX Patient was seen in collaboration with Exam/Review of Systems Exam Vitals Vital Signs Date Temp Pulse Resp B/P (MAP) Pulse Ox O2 O2 Flow FiO2 Time Delivery Rate 02/10/19 98.0 68 18 124/56 96 Room Air 07:30 (78) Intake and Output 02/09/19 02/09/19 02/10/19 1414:59 22:59 06:59 IntakeIntake Total 1220 ml 750 ml BalanceBalance 1220 ml 750 ml Medications Medication Current Medications Docusate Sodium (Colace) 100 mg BID PO Last administered on 02/10/19 09:39; Admin Dose 100 MG; Start 01/25/19 at 21:00 Senna (Senokot) 1 tab HS PO Last administered on 02/09/19 20:22; Admin Dose 1 TAB; Start 01/25/19 at 21:00 Magnesium Hydroxide (Milk Of Mag) 30 ml BID PRN PO CONSTIPATION; Start 01/25/19 at 15:00 Lactulose (Enulose) 20 gm DAILY PRN PO CONSTIPATION; Start 01/25/19 at 15:00 Bisacodyl (Dulcolax Supp) 10 mg DAILY PRN [place] CONSTIPATION; Start 01/25/19 at 15:00 Miscellaneous Information (Pending [facility] Order For Wound Care) This patient cruz... PRN PRN XX WOUND CARE; Start 01/25/19 at 15:00 Albuterol (Ventolin Hfa) 2 puff Q4H RESP THERAPY PRN INH SHORTNESS OF BREATH; Start 01/25/19 at 15:00 Aspirin (Aspirin) 81 mg DAILY PO Last administered on 02/10/19at 07:38; Admin Dose 81 MG; Start 01/26/19 at 09:00 Diphenhydramine HCl (Benadryl) 25 mg Q4 PRN IV itching; Start 01/25/19 at 15:00 Donepezil HCl (Aricept) 10 mg DAILY PO Last administered on 02/10/19at 07:37; Admin Dose 10 MG; Start 01/26/19 at 09:00 Enoxaparin Sodium (Lovenox) 30 mg DAILY SC Last administered on 02/10/19at 09:43; Admin Dose 30 MG; Start 01/26/19 at 09:00 Levothyroxine Sodium (Synthroid) 75 mcg DAILY@06 PO Last administered on 02/10/19 06:28; Admin Dose 75 MCG; Start 01/26/19 at 06:00 Naloxone HCl (Narcan) 0.2 mg Q2M PRN IV OD; Start 01/25/19 at 15:00 Ondansetron HCl (Zofran Inj) 4 mg Q6H PRN IV NAUSEA AND/OR VOMITING Last administered on 01/27/19 12:39; Admin Dose 4 MG; Start 01/25/19 at 15:00 Pantoprazole (Protonix Tab) 40 mg DAILY@06 PO Last administered on 02/10/19 06:28; Admin Dose 40 MG; Start 01/26/19 at 06:00 Sacubitril/ Valsartan (Entresto 24 Mg-26 Mg) 1 tab BID PO Last administered on 02/10/19 09:38; Admin Dose 1 TAB; Start 01/27/19 at 21:00 Atorvastatin Calcium (Lipitor) 10 mg HS PO Last administered on 02/09/19 20:22; Admin Dose 10 MG; Start 01/27/19 at 21:00 Memantine (Namenda) 10 mg BID PO Last administered on 02/10/19 09:43; Admin Dose 10 MG; Start 01/27/19 at 21:00 Gabapentin (Neurontin) 300 mg TID PO Last administered on 02/10/19 13:05; Admin Dose 300 MG; Start 01/29/19 at 13:00 Metoprolol Tartrate (Lopressor) 12.5 mg DAILY PO Last administered on 02/10/19 09:38; Admin Dose 12.5 MG; Start 02/03/19 at 09:00 Acetaminophen (Tylenol Tab) 1,000 mg Q8H PO Last administered on 02/10/19 06:28; Admin Dose 1,000 MG; Start 02/03/19 at 15:00 Hydromorphone HCl (Dilaudid) 0.5 mg Q2H PRN SC BREAKTHROUGH PAIN Last administered on 02/10/19 13:08; Admin Dose 0.5 MG; Start 02/03/19 at 08:30 Oxycodone HCl (Roxicodone) 5 mg Q4H PRN PO MODERATE PAIN LEVEL 4-6 Last ad ministered on 02/08/19 07:36; Admin Dose 5 MG; Start 02/03/19 at 08:30 Oxycodone HCl (Roxicodone) 10 mg Q4H PRN PO MODERATE PAIN LEVEL 7-10 Last administered on 02/10/19 02:10; Admin Dose 10 MG; Start 02/03/19 at 08:30 JAMES RUEDA NP Feb 10, 2019 14:32
[2019-02-10 20:17] VITALS: BP 139/62; PULSE 82; RESP 19
[2019-02-10] MEDS: ATORVASTATIN 10 MG TAB PO SCH (20:46)
[2019-02-10] MEDS: SENNA TAB PO SCH (20:46)
[2019-02-11] VITALS (7 sets, daily range): BP systolic 86–120; BP diastolic 30–59; PULSE 63–82; RESP 18–20
[2019-02-11] MEDS: ACETAMINOPHEN 500 MG TAB PO SCH ×2 (07:00→16:41)
[2019-02-11] MEDS: SACUBITRIL/VALSARTAN (24mg-26mg) TABLET PO SCH (09:03)
[2019-02-11] MEDS: oxyCODONE 5 MG TAB PO PRN ×2 (09:03→13:34)
[2019-02-11] MEDS: PANTOPRAZOLE (EC) 40 MG TAB PO SCH (09:03)
[2019-02-11] MEDS: LEVOTHYROXINE 75 MCG TAB PO SCH (09:03)
[2019-02-11] MEDS: GABAPENTIN 300 MG CAP PO SCH ×2 (09:04→13:34)
[2019-02-11] MEDS: DOCUSATE SODIUM 100 MG CAP PO SCH (09:04)
[2019-02-11] MEDS: ASPIRIN 81 MG TAB PO SCH (09:04)
[2019-02-11] MEDS: MEMANTINE 10 MG TAB PO SCH (09:04)
[2019-02-11] MEDS: DONEPEZIL 10 MG TAB PO SCH (09:04)
[2019-02-11] MEDS: METOPROLOL 25 MG TAB PO SCH (09:06)
[2019-02-11] MEDS: ENOXAPARIN 30 MG/0.3 ML SYG SC SCH (09:09)
--- NOTE | 2019-02-11 14:30 | DS ---
Date/Time of Note Date/Time of Note DATE: 02/11/19 TIME: 14:28 Discharge Summary Admission/Discharge Info Admit Date/Time Jan 25, 2019 at 14:32 Discharge Date/Time Discharge Diagnosis 1. Acute right hip fracture, comminuted and mildly displaced spiral type fract ure of proximal femur and subtrochanteric region and extension into the right lesser trochanter, status post medullary pinning 2. Recent blunt head trauma. 3. Osteoarthritis. 4. Diabetes mellitus type 2. 5. Essential hypertension. 6. Hyperlipidemia. 7. Coronary artery disease. 7. Improvement in self-care and mobility. Patient Condition: Good Hospital Course The patient was admitted for comprehensive interdisciplinary rehabilitation and made steady functional gains from a Mod/Max level to a SBA level for self care tasks and mobility including ambulating over 150 feet with the use of a FWW. Patient is being discharged home with the recommendation of home health PT, OT and RN follow up. The DC meds are per the medication reconciliation sheet. The discharge equipment recommendations include: FWW, BSC, shower chair. The patient will follow up with PMD upon DC. Home Meds Active Scripts Nifedipine* (Nifedipine ER*) 60 Mg Tablet.sa, 60 MG PO DAILY, #30 TAB.SA Prov:BRIDGET CHAN FIRE DISPATCHER 11/23/17 Reported Medications Solifenacin* (Vesicare*) 5 Mg Tablet, 5 MG PO DAILY, TAB 01/21/19 Spironolactone* (Aldactone*) 25 Mg Tablet, 25 MG PO BID, #60 TAB 01/21/19 Sacubitril/Valsartan (Entresto 24 mg-26 mg Tablet) 1 Each Tablet, 1 EACH PO BID, TAB 01/21/19 Memantine* (Namenda*) 10 Mg Tablet, 10 MG PO BID, #60 TAB 01/21/19 Metoprolol Succinate* (Toprol XL*) 50 Mg Tab.er.24h, 50 MG PO DAILY, #30 TAB 01/21/19 Furosemide* (Lasix*) 40 Mg Tablet, 40 MG PO BID, TAB 01/21/19 Clonidine Hcl* (Clonidine Hcl*) 0.3 Mg Tablet, 0.3 MG PO DAILY PRN for ELEVATED BLOOD PRESSURE, TAB 01/21/19 Aspirin (Low Dose Aspirin) 81 Mg Tablet.dr, 81 MG PO DAILY, #30 TAB 01/21/19 Esomeprazole Magnesium (Esomeprazole Magnesium) 40 Mg Capsule.dr, 40 MG PO BEFORE BREAKFAST, #30 CAP 11/17/17 Rosuvastatin Calcium* (Crestor*) 10 Mg Tablet, 10 MG PO QHS, #30 TAB 11/17/17 Albuterol Sulfate* (Ventolin HFA*) 18 Gm Hfa.aer.ad, 2 PUFF INHALATION Q4H PRN for WHEEZING AND SOB, #1 INHALER 11/17/17 Donepezil* (Donepezil*) 10 Mg Tablet, 10 MG PO DAILY, #30 TAB 11/17/17 Levothyroxine Sodium* (Levothyroxine Sodium*) 75 Mcg Tablet, 75 MG PO AC BREAKFAST, #30 11/17/17 Primary Care Provider Not On Staff Doctor DALIA LIANG MD Feb 11, 2019 14:30
--- NOTE | 2019-02-11 14:47 | PN ---
Date/Time of Note Date/Time of Note DATE: 02/11/19 TIME: 14:46 Assessment/Plan VTE Prophylaxis Risk score (from Ns)>0 risk: 11 SCD applied (from Ns): Yes Pharmacological prophylaxis: LMWH Lines/Catheters IV Catheter Type (from Nrsg): Saline Lock Urinary Cath still in place: No Assessment/Plan Hospital Course SUBJECTIVE:no acute episodes OBJECTIVE: Vital signs-see below PHYSICAL EXAM: Constitutional: Elderly female,not in acute distress. HEENT: Head atraumatic and normocephalic. Eyes: Extraocular muscles intact. Anicteric sclerae. Pupils equal bilaterally, reactive to light. NECK: Supple without lymph node. CHEST: Clear and good breath sounds equally. No wheezing. No rhonchi. HEART: S1, S2. Regular rate and rhythm. ABDOMEN: Soft/non tender with no rebound tenderness. Bowel sounds were present. EXTREMITIES: RLE surgical site c/d/i. no cyanosis, clubbing or edema. NEUROLOGIC: Alert and oriented x3. No focal deficit. No sensory deficit. PSYCHOSOCIAL: No signs of depression. INTEGUMENTARY: No open wounds. ASSESSMENT AND PLAN: Acute right hip fracture -s/p medullary pinning by Dr. Lara on 01/22. -dvt ppx,pain control,pt/rehab. Coronary artery disease: History of CABG. -cont. aspirin, beta-blockers,statin CHF/Cardiomyopathy -clinically stable-latest ef 40% -cont. bb/ entresto as tolerated Acute on chronic iron deficient anemia -cont.iron sup Hypertension -now stable -cont. bb/entresto as tolerated Hyperlipidemia - Continue statin Dementia - Continue Aricept/ Namenda Hypothyroidism -On Synthroid UTI -s/p treatment DVT GI prophylaxis: LOVENOX Patient was seen in collaboration with Exam/Review of Systems Exam Vitals Vital Signs Date Temp Pulse Resp B/P (MAP) Pulse Ox O2 O2 Flow FiO2 Time Delivery Rate 02/11/19 76 120/59 93 Room Air 11:15 (79) 02/11/19 98.0 20 07:30 Intake and Output 02/10/19 02/10/19 02/11/19 1515:00 23:00 07:00 IntakeIntake Total 1420 ml OutputOutput Total 200 ml BalanceBalance 1220 ml Medications Medication Current Medications Docusate Sodium (Colace) 100 mg BID PO Last administered on 02/11/19 09:04; Admin Dose 100 MG; Start 01/25/19 at 21:00 Senna (Senokot) 1 tab HS PO Last administered on 02/10/19 20:46; Admin Dose 1 TAB; Start 01/25/19 at 21:00 Magnesium Hydroxide (Milk Of Mag) 30 ml BID PRN PO CONSTIPATION; Start 01/25/19 at 15:00 Lactulose (Enulose) 20 gm DAILY PRN PO CONSTIPATION; Start 01/25/19 at 15:00 Bisacodyl (Dulcolax Supp) 10 mg DAILY PRN [place] CONSTIPATION; Start 01/25/19 at 15:00 Miscellaneous Information (Pending [facility] Order For Wound Care) This patient cruz... PRN PRN XX WOUND CARE; Start 01/25/19 at 15:00 Albuterol (Ventolin Hfa) 2 puff Q4H RESP THERAPY PRN INH SHORTNESS OF BREATH; Start 01/25/19 at 15:00 Aspirin (Aspirin) 81 mg DAILY PO Last administered on 02/11/19 09:04; Admin Dose 81 MG; Start 01/26/19 at 09:00 Diphenhydramine HCl (Benadryl) 25 mg Q4 PRN IV itching; Start 01/25/19 at 15:00 Donepezil HCl (Aricept) 10 mg DAILY PO Last administered on 02/11/19 09:04; Admin Dose 10 MG; Start 01/26/19 at 09:00 Enoxaparin Sodium (Lovenox) 30 mg DAILY SC Last administered on 02/11/19 09:09; Admin Dose 30 MG; Start 01/26/19 at 09:00 Levothyroxine Sodium (Synthroid) 75 mcg DAILY@06 PO Last administered on 02/11/19 09:03; Admin Dose 75 MCG; Start 01/26/19 at 06:00 Naloxone HCl (Narcan) 0.2 mg Q2M PRN IV OD; Start 01/25/19 at 15:00 Ondansetron HCl (Zofran Inj) 4 mg Q6H PRN IV NAUSEA AND/OR VOMITING Last administered on 01/27/19 12:39; Admin Dose 4 MG; Start 01/25/19 at 15:00 Pantoprazole (Protonix Tab) 40 mg DAILY@06 PO Last administered on 02/11/19 09:03; Admin Dose 40 MG; Start 01/26/19 at 06:00 Sacubitril/ Valsartan (Entresto 24 Mg-26 Mg) 1 tab BID PO Last administered on 02/11/19 09:03; Admin Dose 1 TAB; Start 01/27/19 at 21:00 Atorvastatin Calcium (Lipitor) 10 mg HS PO Last administered on 02/10/19 20:46; Admin Dose 10 MG; Start 01/27/19 at 21:00 Memantine (Namenda) 10 mg BID PO Last administered on 02/11/19 09:04; Admin Dose 10 MG; Start 01/27/19 at 21:00 Gabapentin (Neurontin) 300 mg TID PO Last administered on 02/11/19 13:34; Admin Dose 300 MG; Start 01/29/19 at 13:00 Metoprolol Tartrate (Lopressor) 12.5 mg DAILY PO Last administered on 02/11/19 09:06; Admin Dose 12.5 MG; Start 02/03/19 at 09:00 Acetaminophen (Tylenol Tab) 1,000 mg Q8H PO Last administered on 02/10/19 22:51; Admin Dose 1,000 MG; Start 02/03/19 at 15:00 Hydromorphone HCl (Dilaudid) 0.5 mg Q2H PRN SC BREAKTHROUGH PAIN Last administered on 02/10/19 18:25; Admin Dose 0.5 MG; Start 02/03/19 at 08:30 Oxycodone HCl (Roxicodone) 5 mg Q4H PRN PO MODERATE PAIN LEVEL 4-6 Last administered on 02/08/19 07:36; Admin Dose 5 MG; Start 02/03/19 at 08:30 Oxycodone HCl (Roxicodone) 10 mg Q4H PRN PO MODERATE PAIN LEVEL 7-10 Last administered on 02/11/19 13:34; Admin Dose 10 MG; Start 02/03/19 at 08:30 JAMES RUEDA NP Feb 11, 2019 14:47
== END 2019-02-11 17:42 | disposition home health service (06) | DRG 560 ==
LOC: VRC 14:32
PROVIDERS: ADMIT Physical Medicine & Rehabilitation; ATTEND Internal Medicine Pulmonary Disease
PROC: F07Z5ZZ Bed Mobility Treatment (ICD-10-PCS; principal; 2019-01-25)
PROC: F08Z2ZZ Grooming/Personal Hygiene Treatment (ICD-10-PCS; 2019-01-25)
DX: S72.001D Fracture of unspecified part of neck of right femur, subsequent encounter for closed fracture with routine healing (principal); N39.0 Urinary tract infection, site not specified; S09.90XD Unspecified injury of head, subsequent encounter; J44.9 Chronic obstructive pulmonary disease, unspecified; I25.10 Atherosclerotic heart disease of native coronary artery without angina pectoris; E11.9 Type 2 diabetes mellitus without complications; Z95.1 Presence of aortocoronary bypass graft; E78.5 Hyperlipidemia, unspecified; F03.90 Unspecified dementia, unspecified severity, without behavioral disturbance, psychotic disturbance, mood disturbance, and anxiety; E03.9 Hypothyroidism, unspecified; W19.XXXD Unspecified fall, subsequent encounter; Z79.82 Long term (current) use of aspirin; I11.0 Hypertensive heart disease with heart failure; I50.9 Heart failure, unspecified; D50.9 Iron deficiency anemia, unspecified
CPT/HCPCS: 73550; 80048; 80053; 81001; 82728; 83540; 83735; 84100; 85025; 87081; 87086; 97110; 97116; 97150; 97163; 97166; 97530; 97535; 97542; J1170; J1650; J2405; J2916